=== PATIENT | male | born 1935 | race Caucasian/White ===

== ENCOUNTER 2018-02-16 15:39 | Emergency (ER) | payer MEDICARE ==
[~2018-02-16] VITALS: Ht 180.3 cm; Wt 77.0 kg
[~2018-02-16 15:39] MED LIST: COUM5TAB PO; GABA300 PO; HYDR-3580 PO; LEVO125T48 PO; LORA-392 PO; MOTI25CH PO; OMEG1CAP53 PO; OMEP20CA5 PO; PROS5TAB2 PO; TERA5CAP34 PO; TOPR100T15 PO; VASO10TA8 PO
[2018-02-16 16:04] VITALS: BP 171/79; PULSE 63; RESP 16; TEMP 98.3; O2SAT 96
[2018-02-16] MEDS ORDERED: SODIUM CHLORIDE 0.9% FLUSH 10 ML FLUSH IV FLUSH PRN (16:30)
--- NOTE | 2018-02-16 16:44 | PD ---
HPI . Spitting up blood Chief Complaint: Bleeding Time Seen by Provider: 16:18 Travel History International Travel<30 days: No Contact w/Intl Traveler<30days: No Traveled to known affect area: No History of Present Illness HPI This patient presents with chief complaint of spitting up blood. The patient reports that he has been spitting up blood for an unknown amount of time. However, it was worse today. He states that it is usually dark and scant but that it was copious and bright red today. He has no idea with what he might be coming from. He denies nosebleed. He denies hematemesis. He denies hemoptysis. He states that he will just wake up with the sensation that he has something in his throat. He will spit it out and it will be blood. He states that he can usually just rinse his mouth out and the bleeding stops. He states that the bleeding was bright red today and did not immediately stop when he rinsed his mouth. He became alarmed and presented to us for evaluation. The patient states that he has had a recent EGD and colonoscopy which were negative. He also states that he has been evaluated by ENT and that no etiology of the bleeding was found by ENT. Symptoms have been continuous for quite some time and acutely worse today. Symptoms are mild. The patient is unaware of any modifying factors. 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 PFSH Past Medical History Hx Anticoagulant Therapy: Yes Arthritis: Yes ( BILATERAL KNEE) Asthma: No Autoimmune Disease: No Blood Disorders: Yes (blood clots in lungs 2008) Anxiety: No Depression: No Heart Rhythm Problems: No Cancer: No Cardiovascular Problems: No High Cholesterol: No Chemotherapy: No Chest Pain: No Congestive Heart Failure: No COPD: No Cerebrovascular Accident: No Diabetes: No Diminished Hearing: Yes (HEARING DEFECIT) Diverticulitis: Yes Gastrointestinal Disorders: Yes GERD: Yes Glaucoma: No Genitourinary: Yes (ENLARGED PROSTATE) Headaches: No Hepatitis: No Hiatal Hernia: No Hypertension: Yes Immune Disorder: No Implanted Vascular Access Dvce: No Kidney Stones: No Musculoskeletal: Yes (CHRONIC BACK PAIN) Neurologic: No Psychiatric: No Reproductive: No Respiratory: Yes (PE) Immunizations Current: Yes Migraines: No Myocardial Infarction: No Radiation Therapy: No Seizures: No Sickle Cell Disease: No Thyroid Disease: Yes Ulcer: No ?: Not Past Surgical History Abdominal Surgery: No Appendectomy: No Arteriovenous Shunt: No Cardiac Surgery: No Cholecystectomy: No Ear Surgery: No Eye Surgery: Yes (RIGHT CATARACT) Genitourinary Surgery: No Gynecologic Surgery: No Insulin Pump: No Joint Replacement: No Neurologic Surgery: No Oral Surgery: No Pacemaker: No Thoracic Surgery: No Other Surgery: Yes (BIOPSY PROSTATE "YEARS AGO.") Social History Alcohol Use: No Tobacco Use: No Substance Use: No Allergies-Medications (Allergen,Severity, Reaction): Coded Allergies: No Known Allergies (Verified Adverse Reaction, Unknown, 02/16/18) Reported Meds & Prescriptions Reported Meds & Active Scripts Active Reported Hydrocodone-Acetaminophen 10-325 mg Tab 1 Tab PO Q4H PRN Neurontin (Gabapentin) 300 Mg Cap 900 Mg PO HS Warfarin 5 Mg Tab 5 Mg PO DAILY Metoprolol Tartrate 100 Mg Tab 100 Mg PO BID Levoxyl (Levothyroxine Sodium) 125 Mcg Tab 125 Mcg PO DAILY Terazosin (Terazosin HCl) 5 Mg Cap 5 Mg PO BID Omeprazole 20 Mg Tab 20 Mg PO BID Enalapril (Enalapril Maleate) 20 Mg Tab 20 Mg PO BID Review of Systems Except as stated in HPI: all other systems reviewed are Neg Physical Exam Narrative GENERAL: Awake and alert and in no acute distress. SKIN: warm/dry. Normal color and turgor. HEAD: Normocephalic. Atraumatic. EYES: Pupils equal and round. No scleral icterus. No injection or drainage. ENT: No nasal bleeding or discharge. Mucous membranes pink and moist. No evidence of bleeding from the nose or throat. NECK: Trachea midline. Full range of motion without pain.. CARDIOVASCULAR: Regular rate and rhythm. RESPIRATORY: No accessory muscle use. Clear to auscultation. Breath sounds equal bilaterally. GASTROINTESTINAL: Abdomen soft. Nontender. Bowel sounds present. Nondistended. MUSCULOSKELETAL: No obvious deformities. NEUROLOGICAL: Awake and alert. No obvious cranial nerve deficits. Motor grossly within normal limits. Normal speech. PSYCHIATRIC: Appropriate mood and affect; insight and judgment normal. Data Data Last Documented VS Vital Signs Date Time Temp Pulse Resp B/P (MAP) Pulse Ox O2 Delivery O2 Flow Rate FiO2 02/16/18 16:04 98.3 63 16 171/79 (109) 96 Orders Orders Basic Metabolic Panel (Bmp) (02/16/18 16:19) Complete Blood Count With Diff (02/16/18 16:19) Prothrombin Time / Inr (Pt) (02/16/18 16:19) Iv Access Insert/Monitor (02/16/18 16:19) Sodium Chloride 0.9% Flush (Ns Flush) (02/16/18 16:30) Chest, Single Ap (02/16/18 16:19) Labs Laboratory Tests Test 02/16/18 16:45 White Blood Count 5.5 TH/MM3 Red Blood Count 4.30 MIL/MM3 Hemoglobin 13.0 GM/DL Hematocrit 40.3 % Mean Corpuscular Volume 93.7 FL Mean Corpuscular Hemoglobin 30.2 PG Mean Corpuscular Hemoglobin Concent 32.2 % Red Cell Distribution Width 13.6 % Platelet Count 143 TH/MM3 Mean Platelet Volume 7.4 FL Neutrophils (%) (Auto) 61.1 % Lymphocytes (%) (Auto) 27.0 % Monocytes (%) (Auto) 7.8 % Eosinophils (%) (Auto) 2.3 % Basophils (%) (Auto) 1.8 % Neutrophils # (Auto) 3.4 TH/MM3 Lymphocytes # (Auto) 1.5 TH/MM3 Monocytes # (Auto) 0.4 TH/MM3 Eosinophils # (Auto) 0.1 TH/MM3 Basophils # (Auto) 0.1 TH/MM3 CBC Comment DIFF FINAL Differential Comment Prothrombin Time 29.6 SEC Prothromb Time International Ratio 2.9 RATIO Blood Urea Nitrogen 18 MG/DL Creatinine 0.72 MG/DL Random Glucose 93 MG/DL Calcium Level 8.9 MG/DL Sodium Level 140 MEQ/L Potassium Level 3.9 MEQ/L Chloride Level 107 MEQ/L Carbon Dioxide Level 26.3 MEQ/L Anion Gap 7 MEQ/L Estimat Glomerular Filtration Rate 104 ML/MIN [facility] Medical Decision Making Medical Screen Exam Complete: Yes Emergency Medical Condition: Yes Differential Diagnosis Differential diagnosis of ENT bleeding includes but is not limited to anterior epistaxis, posterior epistaxis, oropharyngeal bleeding, hemoptysis, hematemesis Narrative Course This patient presents stating that he has been spitting up blood for a long time. He states that it is acutely worse today. 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 CBC & BMP Diagram 02/16/18 16:45 Calcium Level 8.9 INR 2.9 Vital Signs Date Time Temp Pulse Resp B/P (MAP) Pulse Ox O2 Delivery O2 Flow Rate FiO2 02/16/18 16:04 98.3 63 16 171/79 (109) 96 This patient is hemodynamically stable with no anemia and no significant coagulopathy (his INR is therapeutic). He is stable for discharge to home. Diagnosis Primary Impression: Bleeding Additional Instructions: Follow-up with your primary care physician as needed Disposition: 01 DISCHARGE HOME Condition: Stable Marina Urrutia MD Feb 16, 2018 16:44
[2018-02-16] MEDS ORDERED: ENAL20TA PO (16:47)
[2018-02-16] MEDS ORDERED: OMEP20TA93 PO (16:47)
[2018-02-16] MEDS ORDERED: LEVO125T50 PO (16:47)
[2018-02-16] MEDS ORDERED: WARF-23 PO (16:47)
[2018-02-16] MEDS ORDERED: TERA5CAP3 PO (16:47)
[2018-02-16] MEDS ORDERED: NEUR300C PO (16:47)
[2018-02-16] MEDS ORDERED: HYDR-3583 PO (16:47)
[2018-02-16] MEDS ORDERED: METO100T PO (16:47)
[2018-02-16 17:04] LABS: AUTOMATED NEUTROPHIL # 3.4 TH/MM3 (1.8-7.7); BASOPHIL # 0.1 TH/MM3 (0-0.2); BASOPHIL % 1.8 % (0.0-2.0); EOSINOPHIL # 0.1 TH/MM3 (0-0.4); EOSINOPHIL % 2.3 % (0.0-4.0); HEMATOCRIT 40.3 % (39.0-51.0); LYMPHOCYTE # 1.5 TH/MM3 (1.0-4.8); MEAN CELL VOLUME 93.7 FL (80.0-100.0); MEAN CORPUSCULAR HEMOGLOBIN 30.2 PG (27.0-34.0); MEAN CORPUSCULAR HGB CONC 32.2 % (32.0-36.0); MEAN PLATELET VOLUME 7.4 FL (7.0-11.0); MONO % 7.8 % (0.0-8.0); MONOCYTE # 0.4 TH/MM3 (0-0.9); NEUT % 61.1 % (16.0-70.0); PLATELET COUNT 143 TH/MM3 (150-450); RED CELL DISTRIBUTION WIDTH 13.6 % (11.6-17.2); WHITE BLOOD COUNT 5.5 TH/MM3 (4.0-11.0)
[2018-02-16 17:14] LABS: CALCIUM 8.9 MG/DL (8.5-10.1)
[2018-02-16 17:15] LABS: BICARBONATE 26.3 MEQ/L (21.0-32.0)
--- NOTE | 2018-02-16 17:15 | RADRPT ---
EXAM DATE/TIME: 02/16/2018 16:31 [place] COMPARISON: CHEST SINGLE AP, October 17, 2012, 13:14. INDICATIONS : Vomiting blood since this morning. MEDICAL HISTORY : None. SURGICAL HISTORY : None. ENCOUNTER: Initial ACUITY: 1 day PAIN SCORE: 0/10 LOCATION: Bilateral chest FINDINGS: A single view of the chest demonstrates the lungs to be symmetrically aerated without evidence of mas s, infiltrate or effusion. The cardiomediastinal contours are unremarkable. Osseous structures are intact. CONCLUSION: The lungs are clear. Truman Lopez MD on February 16, 2018 at 17:12 Board Certified Radiologist. This report was verified electronically.
[2018-02-16 17:18] LABS: CREATININE 0.72 MG/DL (0.60-1.30)
[2018-02-16 17:20] LABS: INTERNATIONAL NORMALIZED RATIO 2.9 RATIO; PROTHROMBIN TIME - PATIENT 29.6 SEC (9.8-11.6)
== END 2018-02-16 18:34 | disposition home or self-care (01) ==
LOC: PHED 15:39
DX: R04.2 Hemoptysis (principal); N40.0 Benign prostatic hyperplasia without lower urinary tract symptoms; H91.90 Unspecified hearing loss, unspecified ear; I10 Essential (primary) hypertension; Z86.711 Personal history of pulmonary embolism; Z79.01 Long term (current) use of anticoagulants
CPT/HCPCS: 71045; 80048; 85025; 85610; 99284

== ENCOUNTER 2018-07-22 20:11 | Inpatient (IN) ==
[2018-07-22] MEDS ORDERED: Sod Chloride 0.9% Inj 1,000 ML IV.SIG ONE (20:47)
[2018-07-22] MEDS ORDERED: Piperacil/Tazo 4.5 GM Premix 4.5 GM/100 ML BAG IV.SIG ONE (20:49)
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
[2018-07-22 21:02] LABS: Bilirubin,Urine Negative (Negative); Clarity,Urine Clear (Clear); Color,Urine Yellow (Yellw/Straw); Glucose,Urine (UA) Negative (Negative); Leukocyte Esterase,Urine Moderate (Negative); Nitrite,Urine Positive (Negative); PH,Urine 5.5 (5.0-8.5); Specific Gravity,Urine 1.015 (1.002-1.035); Urobilinogen,Urine 0.2 mg/dL (Less than 2)
[2018-07-22 21:20] LABS: Bacteria,Urine Many /hpf; Squamous Epithelial Cell,Urine 0-5 /hpf (0-5); WBC,Urine Innumerable /hpf (0-5)
[2018-07-22 21:56] LABS: Baso % (Auto) 0.3 % (0.0-2.0); Eos # (Auto) 0.1 th/mm3 (0.0-0.4); Hematocrit 38.3 % (39.0-51.0); Lymph # (Auto) 0.8 th/mm3 (1.0-4.8); Lymph % (Auto) 11.2 % (9.0-44.0); Mean Corpuscular Hemoglobin 32.6 pg (27.0-34.0); Mean Corpuscular Volume 96.1 fL (80.0-100.0); Mean Platelet Volume 7.5 fL (7.0-11.0); Mono # (Auto) 0.7 th/mm3 (0.0-0.9); Mono % (Auto) 9.3 % (0.0-8.0); Neut # (Auto) 5.9 th/mm3 (1.8-7.7); Neut % (Auto) 78.2 % (16.0-70.0); Platelet Count 151 th/mm3 (150-450); Red Blood Count 3.98 mil/mm3 (4.50-5.90); Red Cell Distribution Width 13.2 % (11.6-17.2); White Blood Count 7.5 th/mm3 (4.0-11.0)
[2018-07-22 22:04] LABS: Chloride 101 meq/L (98-107); Potassium 4.1 meq/L (3.5-5.1); Sodium 136 meq/L (136-145)
[2018-07-22 22:06] LABS: INR 2.9 Ratio; Prothrombin Time 29.2 sec (9.8-11.6)
[2018-07-22 22:08] LABS: Albumin 3.1 g/dL (3.4-5.0); Anion Gap 10 meq/L (5-15); Blood Urea Nitrogen 31 mg/dL (7-18); Calcium 8.4 mg/dL (8.5-10.1); Carbon Dioxide 24.8 meq/L (21.0-32.0); Glucose,Random 93 mg/dL (74-106); Lipase 106 U/L (73-393)
[2018-07-22 22:11] LABS: Alanine Aminotransferase 28 U/L (12-78); Aspartate Aminotransferase 27 U/L (15-37); Glomerular Filtration Rate 71 mL/min (>89)
[2018-07-22 22:13] LABS: Total Protein 6.8 g/dL (6.4-8.2)
[2018-07-22 22:14] LABS: Alkaline Phosphatase 74 U/L (45-117)
[2018-07-23] MEDS: Sodium Chloride 0.45 % Inj 1,000 ML IV.CONT SCH ×2 (01:53→14:20)
[2018-07-23] MEDS: Piperacil/Tazo 3.375 GM Premix 50 ML IV.SIG SCH ×4 (05:01→21:49)
[2018-07-23 07:06] LABS: Baso % (Auto) 0.5 % (0.0-2.0); Eos % (Auto) 0.1 % (0.0-4.0); Hematocrit 35.1 % (39.0-51.0); Hemoglobin 11.8 gm/dL (13.0-17.0); Lymph # (Auto) 1.1 th/mm3 (1.0-4.8); Lymph % (Auto) 14.5 % (9.0-44.0); Mean Corpuscular HGB Conc 33.6 % (32.0-36.0); Mean Corpuscular Hemoglobin 32.2 pg (27.0-34.0); Mean Corpuscular Volume 95.9 fL (80.0-100.0); Mean Platelet Volume 7.4 fL (7.0-11.0); Mono # (Auto) 0.8 th/mm3 (0.0-0.9); Mono % (Auto) 9.9 % (0.0-8.0); Platelet Count 159 th/mm3 (150-450); Red Blood Count 3.67 mil/mm3 (4.50-5.90); Red Cell Distribution Width 13.1 % (11.6-17.2); White Blood Count 7.9 th/mm3 (4.0-11.0)
[2018-07-23] MEDS: Levothyroxine 125 MCG Tablet PO SCH (07:19)
[2018-07-23 07:30] LABS: Potassium 3.9 meq/L (3.5-5.1)
[2018-07-23 07:32] LABS: INR 3.1 Ratio; Prothrombin Time 31.6 sec (9.8-11.6)
[2018-07-23 07:34] LABS: Calcium 8.4 mg/dL (8.5-10.1)
[2018-07-23 07:35] LABS: Carbon Dioxide 20.7 meq/L (21.0-32.0)
[2018-07-23] MEDS: Metoprolol Tartrate 50 MG Tablet PO SCH ×2 (08:09→21:39)
[2018-07-23] MEDS: Senna/Docusate Sodium 8.6/50 MG Tablet PO SCH ×2 (08:09→21:36)
[2018-07-23] MEDS: Pantoprazole Sodium 20 MG DR Tablet PO SCH ×2 (08:09→21:38)
[2018-07-23] MEDS: Acetaminophen 325 MG Tablet PO PRN ×3 (10:52→21:41)
--- NOTE | 2018-07-23 12:21 | ECG ---
Date Performed: 07/22/2018 Time Performed: 20:59:59 PTAGE: 82 years EKG: Sinus rhythm RIGHT BUNDLE BRANCH BLOCK ABNORMAL ECG Compared to PREVIOUS TRACING Right bundle branch block is now present PREVIOUS TRACIN08/03/2015 1 1.43 DOCTOR: Tyrone Dickey Interpretating Date/Time 07/25/2018 07:28:33
[2018-07-23] MEDS: Gabapentin 400 MG Capsule PO SCH (21:38)
[2018-07-24] MEDS: Piperacil/Tazo 3.375 GM Premix 50 ML IV.SIG SCH ×4 (04:23→21:28)
[2018-07-24] MEDS: Sodium Chloride 0.45 % Inj 1,000 ML IV.CONT SCH ×2 (04:23→17:38)
[2018-07-24] MEDS: Acetaminophen 325 MG Tablet PO PRN ×2 (04:24→10:46)
[2018-07-24 06:10] LABS: Baso % (Auto) 0.4 % (0.0-2.0); Eos # (Auto) 0.1 th/mm3 (0.0-0.4); Eos % (Auto) 1.7 % (0.0-4.0); Hematocrit 36.1 % (39.0-51.0); Hemoglobin 12.2 gm/dL (13.0-17.0); Lymph # (Auto) 1.4 th/mm3 (1.0-4.8); Lymph % (Auto) 18.6 % (9.0-44.0); Mean Corpuscular HGB Conc 33.9 % (32.0-36.0); Mean Corpuscular Hemoglobin 32.3 pg (27.0-34.0); Mean Corpuscular Volume 95.4 fL (80.0-100.0); Mean Platelet Volume 7.6 fL (7.0-11.0); Mono # (Auto) 0.6 th/mm3 (0.0-0.9); Mono % (Auto) 8.5 % (0.0-8.0); Neut # (Auto) 5.3 th/mm3 (1.8-7.7); Neut % (Auto) 70.8 % (16.0-70.0); Platelet Count 164 th/mm3 (150-450); Red Blood Count 3.78 mil/mm3 (4.50-5.90); Red Cell Distribution Width 13.5 % (11.6-17.2); White Blood Count 7.4 th/mm3 (4.0-11.0)
[2018-07-24 06:17] LABS: Chloride 108 meq/L (98-107); Potassium 3.6 meq/L (3.5-5.1); Sodium 141 meq/L (136-145)
[2018-07-24 06:25] LABS: Calcium 8.5 mg/dL (8.5-10.1)
[2018-07-24 06:26] LABS: Albumin 2.7 g/dL (3.4-5.0); Anion Gap 11 meq/L (5-15); Aspartate Aminotransferase 44 U/L (15-37); Blood Urea Nitrogen 16 mg/dL (7-18); Carbon Dioxide 22.5 meq/L (21.0-32.0); Glucose,Random 89 mg/dL (74-106)
[2018-07-24 06:27] LABS: Alanine Aminotransferase 32 U/L (12-78)
[2018-07-24 06:28] LABS: Total Protein 6.3 g/dL (6.4-8.2)
[2018-07-24 06:29] LABS: Alkaline Phosphatase 82 U/L (45-117); Glomerular Filtration Rate Greater Than 89 mL/min (>89)
[2018-07-24] MEDS: Levothyroxine 125 MCG Tablet PO SCH (06:30)
[2018-07-24] MEDS: Metoprolol Tartrate 50 MG Tablet PO SCH (10:45)
[2018-07-24] MEDS: Pantoprazole Sodium 20 MG DR Tablet PO SCH (10:45)
[2018-07-24] MEDS: Senna/Docusate Sodium 8.6/50 MG Tablet PO SCH ×2 (10:45→21:28)
[2018-07-24] MEDS ORDERED: Phytonadione 5 MG/SWFI 5 ML Oral Syringe PO ONE (12:00)
[2018-07-24] MEDS ORDERED: Morphine Inj 4 MG/ML Vial IV.PUSH ONE (12:00)
[2018-07-24 12:32] LABS: INR 5.5 Ratio; Prothrombin Time 55.6 sec (9.8-11.6)
[2018-07-24 15:35] LABS: Hematocrit 32.8 % (39.0-51.0); Hemoglobin 10.7 gm/dL (13.0-17.0)
[2018-07-24] MEDS ORDERED: HYDROmorphone PF Inj 1 MG/ML Ampul IV.PUSH PRN ×2 (16:00→17:30)
[2018-07-24] MEDS ORDERED: Belladonna Alkaloid/Opium 60 MG Supp RECTAL ONE (18:30)
[2018-07-24 19:29] LABS: Prothrombin Time 40.1 sec (9.8-11.6)
[2018-07-24] MEDS ORDERED: Potassium Chlor 40 mEq Premix 40 MEQ/100 ML PIGGYBACK IV.SIG PRN ×2 (20:26)
[2018-07-24] MEDS ORDERED: Magnesium Sulfate Inj 2 GM in Sodium Chlor 0.9% Inj 96 ML IV.SIG PRN (20:26)
[2018-07-24] MEDS ORDERED: Magnesium Oxide 400 MG Tablet PO PRN (20:26)
[2018-07-24] MEDS ORDERED: Potassium Phosphate 500 MG Soluble Tablet PO PRN ×2 (20:26)
[2018-07-24] MEDS ORDERED: Potassium Phosphate Inj 30 MMOL in Sodium Chlor 0.9% Inj 250 ML IV.SIG PRN (20:26)
[2018-07-24] MEDS ORDERED: Dextrose 50% in Water 50 ML Vial IV.PUSH PRN (20:26)
[2018-07-24] MEDS ORDERED: Potassium Chlor 20 mEq Premix 20 MEQ/100 ML PIGGYBACK IV.SIG PRN ×2 (20:26)
[2018-07-24] MEDS ORDERED: Sodium Phosphate Inj 30 MMOL in Sodium Chlor 0.9% Inj 250 ML IV.SIG PRN (20:26)
[2018-07-24] MEDS ORDERED: Potassium Chloride 25 MEQ Effervescent Tablet PO PRN (20:26)
[2018-07-24] MEDS ORDERED: Magnesium Sulfate Inj 4 GM in Sodium Chlor 0.9% Inj 92 ML IV.SIG PRN (20:26)
[2018-07-24] MEDS ORDERED: HYDROmorphone PF Inj 2 MG/ML Vial IV.PUSH PRN ×2 (21:25→22:48)
[2018-07-24] MEDS: Gabapentin 400 MG Capsule PO SCH (21:28)
[2018-07-24] MEDS: Sod Chloride 0.9% Inj 1,000 ML IV.CONT SCH (21:56)
[2018-07-24] MEDS ORDERED: HYDROmorphone PF Inj 2 MG/ML Vial SQ ONE (22:48)
[2018-07-24] MEDS ORDERED: Acetaminophen Inj 650 MG/65 ML VIAL IV.SIG PRN (22:48)
[2018-07-24] MEDS: HYDROmorphone PF Inj 2 MG/ML Vial IV.PUSH PRN (23:00)
[2018-07-25] MEDS: Insulin NovoLOG Aspart Correctional Sugar Inj SQ SCH ×4 (01:03→17:33)
[2018-07-25] MEDS ORDERED: Chlorhexidine Gluconate 2% 1 Pack (2 Cloths) TOPICAL PRN (04:00)
[2018-07-25] MEDS: Piperacil/Tazo 3.375 GM Premix 50 ML IV.SIG SCH ×4 (04:02→21:40)
[2018-07-25] MEDS: Chlorhexidine Gluconate 2% 1 Pack (2 Cloths) TOPICAL SCH (04:02)
[2018-07-25] MEDS: Levothyroxine 125 MCG Tablet PO SCH (06:40)
[2018-07-25] MEDS: Pantoprazole Inj 40 MG Vial IV.PUSH SCH (09:10)
[2018-07-25] MEDS: Senna/Docusate Sodium 8.6/50 MG Tablet PO SCH ×2 (09:10→20:38)
[2018-07-25 12:28] LABS: Baso % (Auto) 0.1 % (0.0-2.0); Eos % (Auto) 0.2 % (0.0-4.0); Hemoglobin 9.6 gm/dL (13.0-17.0); Lymph % (Auto) 9.6 % (9.0-44.0); Mean Corpuscular HGB Conc 34.3 % (32.0-36.0); Mean Corpuscular Hemoglobin 32.3 pg (27.0-34.0); Mean Corpuscular Volume 94.2 fL (80.0-100.0); Mean Platelet Volume 7.6 fL (7.0-11.0); Mono % (Auto) 8.9 % (0.0-8.0); Neut # (Auto) 8.7 th/mm3 (1.8-7.7); Neut % (Auto) 81.2 % (16.0-70.0); Platelet Count 176 th/mm3 (150-450); Red Blood Count 2.97 mil/mm3 (4.50-5.90); Red Cell Distribution Width 15.2 % (11.6-17.2); White Blood Count 10.8 th/mm3 (4.0-11.0)
[2018-07-25 12:45] LABS: Activated Partial Thrombo Time 36.7 sec (24.3-30.1); INR 1.5 Ratio; Prothrombin Time 15.4 sec (9.8-11.6)
[2018-07-25 12:58] LABS: Albumin 2.6 g/dL (3.4-5.0); Carbon Dioxide 23.6 meq/L (21.0-32.0); Magnesium 2.3 mg/dL (1.5-2.5); Potassium 3.8 meq/L (3.5-5.1)
[2018-07-25 13:08] LABS: Phosphorus 3.5 mg/dL (2.5-4.9); Thyroid Stimulating Hormone 1.98 uIU/mL (0.358-3.740); Total Protein 6.3 g/dL (6.4-8.2); Troponin I 0.02 ng/mL (0.02-0.05)
[2018-07-25 13:23] LABS: Creatine Kinase MB 6.9 ng/mL (0.5-3.6)
[2018-07-25] MEDS: Sod Chloride 0.9% Inj 1,000 ML IV.CONT SCH ×2 (16:45→16:46)
[2018-07-25] MEDS ORDERED: Phytonadione Inj 10 MG in Sodium Chlor 0.9% Inj 50 ML IV.SIG ONE (18:00)
[2018-07-25] MEDS: Gabapentin 400 MG Capsule PO SCH (20:37)
[2018-07-26] MEDS: Insulin NovoLOG Aspart Correctional Sugar Inj SQ SCH ×4 (01:02→17:54)
[2018-07-26 03:27] LABS: Baso % (Auto) 0.3 % (0.0-2.0); Eos # (Auto) 0.4 th/mm3 (0.0-0.4); Eos % (Auto) 4.5 % (0.0-4.0); Hematocrit 24.9 % (39.0-51.0); Hemoglobin 8.6 gm/dL (13.0-17.0); Lymph # (Auto) 1.2 th/mm3 (1.0-4.8); Lymph % (Auto) 14.7 % (9.0-44.0); Mean Corpuscular HGB Conc 34.8 % (32.0-36.0); Mean Corpuscular Hemoglobin 32.3 pg (27.0-34.0); Mean Corpuscular Volume 92.7 fL (80.0-100.0); Mean Platelet Volume 7.5 fL (7.0-11.0); Mono # (Auto) 0.8 th/mm3 (0.0-0.9); Mono % (Auto) 9.5 % (0.0-8.0); Platelet Count 183 th/mm3 (150-450); Red Blood Count 2.68 mil/mm3 (4.50-5.90); Red Cell Distribution Width 15.4 % (11.6-17.2); White Blood Count 8.4 th/mm3 (4.0-11.0)
[2018-07-26 03:50] LABS: Alanine Aminotransferase 29 U/L (12-78); Albumin 2.2 g/dL (3.4-5.0); Anion Gap 10 meq/L (5-15); Aspartate Aminotransferase 40 U/L (15-37); Blood Urea Nitrogen 28 mg/dL (7-18); Calcium 7.7 mg/dL (8.5-10.1); Carbon Dioxide 24.3 meq/L (21.0-32.0); Chloride 113 meq/L (98-107); Glomerular Filtration Rate Greater Than 89 mL/min (>89); Glucose,Random 88 mg/dL (74-106); Potassium 3.2 meq/L (3.5-5.1); Sodium 147 meq/L (136-145)
[2018-07-26 03:53] LABS: Alkaline Phosphatase 57 U/L (45-117); Total Protein 5.4 g/dL (6.4-8.2)
[2018-07-26] MEDS: Sod Chloride 0.9% Inj 1,000 ML IV.CONT SCH (04:01)
[2018-07-26] MEDS: Chlorhexidine Gluconate 2% 1 Pack (2 Cloths) TOPICAL SCH (04:01)
[2018-07-26 04:24] LABS: Platelet Estimate Normal (Normal); Platelet Morphology Normal (Normal)
[2018-07-26 04:25] LABS: Ovalocytes 1+
[2018-07-26] MEDS: Piperacil/Tazo 3.375 GM Premix 50 ML IV.SIG SCH ×4 (06:45→23:23)
[2018-07-26] MEDS: Levothyroxine 125 MCG Tablet PO SCH (06:46)
[2018-07-26] MEDS: Pantoprazole Inj 40 MG Vial IV.PUSH SCH (08:12)
[2018-07-26] MEDS: Senna/Docusate Sodium 8.6/50 MG Tablet PO SCH ×2 (08:12→23:18)
[2018-07-26 10:53] LABS: Baso % (Auto) 0.2 % (0.0-2.0); Eos # (Auto) 0.4 th/mm3 (0.0-0.4); Hematocrit 24.5 % (39.0-51.0); Hemoglobin 8.3 gm/dL (13.0-17.0); Lymph # (Auto) 1.2 th/mm3 (1.0-4.8); Lymph % (Auto) 13.8 % (9.0-44.0); Mean Corpuscular Hemoglobin 32.3 pg (27.0-34.0); Mean Corpuscular Volume 94.9 fL (80.0-100.0); Mean Platelet Volume 7.3 fL (7.0-11.0); Mono # (Auto) 0.7 th/mm3 (0.0-0.9); Mono % (Auto) 8.1 % (0.0-8.0); Neut # (Auto) 6.5 th/mm3 (1.8-7.7); Neut % (Auto) 73.9 % (16.0-70.0); Platelet Count 201 th/mm3 (150-450); Red Blood Count 2.58 mil/mm3 (4.50-5.90); Red Cell Distribution Width 15.5 % (11.6-17.2); White Blood Count 8.7 th/mm3 (4.0-11.0)
[2018-07-26 11:52] LABS: Eosinophils 3 % (0-4); Lymphocytes 13 % (9-44); Metamyelocytes 2 % (0-1); Monocytes 2 % (0-8); Platelet Estimate Normal (Normal); Platelet Morphology Normal (Normal); Toxic Granulation 2+
[2018-07-26] MEDS: Gabapentin 400 MG Capsule PO SCH (23:23)
[2018-07-27] MEDS: HYDROmorphone PF Inj 2 MG/ML Vial IV.PUSH PRN ×3 (00:59→16:35)
[2018-07-27] MEDS: Insulin NovoLOG Aspart Correctional Sugar Inj SQ SCH ×5 (01:01→23:39)
[2018-07-27] MEDS: Sod Chloride 0.9% Inj 1,000 ML IV.CONT SCH (01:32)
[2018-07-27 04:12] LABS: Baso % (Auto) 0.3 % (0.0-2.0); Eos # (Auto) 0.4 th/mm3 (0.0-0.4); Eos % (Auto) 4.1 % (0.0-4.0); Hematocrit 23.5 % (39.0-51.0); Hemoglobin 8.4 gm/dL (13.0-17.0); Lymph # (Auto) 1.3 th/mm3 (1.0-4.8); Lymph % (Auto) 13.4 % (9.0-44.0); Mean Corpuscular HGB Conc 35.6 % (32.0-36.0); Mean Corpuscular Hemoglobin 32.6 pg (27.0-34.0); Mean Corpuscular Volume 91.6 fL (80.0-100.0); Mean Platelet Volume 7.4 fL (7.0-11.0); Mono # (Auto) 0.7 th/mm3 (0.0-0.9); Mono % (Auto) 7.1 % (0.0-8.0); Neut # (Auto) 7.1 th/mm3 (1.8-7.7); Neut % (Auto) 75.1 % (16.0-70.0); Platelet Count 231 th/mm3 (150-450); Red Blood Count 2.57 mil/mm3 (4.50-5.90); Red Cell Distribution Width 15.1 % (11.6-17.2); White Blood Count 9.5 th/mm3 (4.0-11.0)
[2018-07-27 04:30] LABS: INR 1.1 Ratio; Prothrombin Time 11.4 sec (9.8-11.6)
[2018-07-27] MEDS: Chlorhexidine Gluconate 2% 1 Pack (2 Cloths) TOPICAL SCH (04:31)
[2018-07-27] MEDS: Piperacil/Tazo 3.375 GM Premix 50 ML IV.SIG SCH ×4 (04:31→21:55)
[2018-07-27 04:47] LABS: Alanine Aminotransferase 55 U/L (12-78); Albumin 2.4 g/dL (3.4-5.0); Alkaline Phosphatase 62 U/L (45-117); Anion Gap 12 meq/L (5-15); Aspartate Aminotransferase 80 U/L (15-37); Blood Urea Nitrogen 21 mg/dL (7-18); Calcium 7.9 mg/dL (8.5-10.1); Carbon Dioxide 21.6 meq/L (21.0-32.0); Chloride 112 meq/L (98-107); Glomerular Filtration Rate Greater Than 89 mL/min (>89); Glucose,Random 92 mg/dL (74-106); Potassium 3.4 meq/L (3.5-5.1); Sodium 146 meq/L (136-145); Total Protein 5.9 g/dL (6.4-8.2)
[2018-07-27] MEDS: Levothyroxine 125 MCG Tablet PO SCH (06:07)
[2018-07-27] MEDS: Pantoprazole Inj 40 MG Vial IV.PUSH SCH (08:20)
[2018-07-27] MEDS: Senna/Docusate Sodium 8.6/50 MG Tablet PO SCH ×2 (08:20→21:17)
[2018-07-27] MEDS: Gabapentin 400 MG Capsule PO SCH (21:17)
[2018-07-28] MEDS: Piperacil/Tazo 3.375 GM Premix 50 ML IV.SIG SCH ×2 (05:58→09:46)
[2018-07-28] MEDS: Levothyroxine 125 MCG Tablet PO SCH (05:59)
[2018-07-28] MEDS: Chlorhexidine Gluconate 2% 1 Pack (2 Cloths) TOPICAL SCH (06:04)
[2018-07-28] MEDS: Insulin NovoLOG Aspart Correctional Sugar Inj SQ SCH ×3 (06:06→19:15)
[2018-07-28 07:07] LABS: INR 1.1 Ratio; Prothrombin Time 11.2 sec (9.8-11.6)
[2018-07-28 07:20] LABS: Baso % (Auto) 0.3 % (0.0-2.0); Eos # (Auto) 0.5 th/mm3 (0.0-0.4); Eos % (Auto) 4.8 % (0.0-4.0); Hematocrit 22.8 % (39.0-51.0); Hemoglobin 8.1 gm/dL (13.0-17.0); Lymph # (Auto) 1.2 th/mm3 (1.0-4.8); Lymph % (Auto) 12.3 % (9.0-44.0); Mean Corpuscular HGB Conc 35.3 % (32.0-36.0); Mean Corpuscular Hemoglobin 32.7 pg (27.0-34.0); Mean Corpuscular Volume 92.7 fL (80.0-100.0); Mean Platelet Volume 7.3 fL (7.0-11.0); Mono # (Auto) 0.5 th/mm3 (0.0-0.9); Mono % (Auto) 5.2 % (0.0-8.0); Neut # (Auto) 7.4 th/mm3 (1.8-7.7); Neut % (Auto) 77.4 % (16.0-70.0); Platelet Count 250 th/mm3 (150-450); Red Blood Count 2.46 mil/mm3 (4.50-5.90); Red Cell Distribution Width 15.2 % (11.6-17.2); White Blood Count 9.5 th/mm3 (4.0-11.0)
[2018-07-28 07:35] LABS: Albumin 2.2 g/dL (3.4-5.0); Anion Gap 10 meq/L (5-15); Aspartate Aminotransferase 52 U/L (15-37); Carbon Dioxide 24.1 meq/L (21.0-32.0); Chloride 111 meq/L (98-107); Glomerular Filtration Rate Greater Than 89 mL/min (>89); Glucose,Random 95 mg/dL (74-106); Potassium 3.7 meq/L (3.5-5.1); Sodium 145 meq/L (136-145)
[2018-07-28 07:47] LABS: Alanine Aminotransferase 48 U/L (12-78); Alkaline Phosphatase 56 U/L (45-117); Blood Urea Nitrogen 19 mg/dL (7-18); Total Protein 5.7 g/dL (6.4-8.2)
[2018-07-28] MEDS: Pantoprazole Inj 40 MG Vial IV.PUSH SCH (08:50)
[2018-07-28] MEDS: Senna/Docusate Sodium 8.6/50 MG Tablet PO SCH ×2 (08:50→22:48)
[2018-07-28] MEDS ORDERED: Sodium Chlor 0.9% Inj 250 ML IV.SIG SCH (15:00)
[2018-07-28] MEDS: Gabapentin 400 MG Capsule PO SCH (22:45)
[2018-07-28] MEDS: Metoprolol Tartrate 50 MG Tablet PO SCH (22:47)
[2018-07-29] MEDS: Insulin NovoLOG Aspart Correctional Sugar Inj SQ SCH ×4 (00:49→17:04)
[2018-07-29] MEDS: Chlorhexidine Gluconate 2% 1 Pack (2 Cloths) TOPICAL SCH (04:21)
[2018-07-29 05:46] LABS: Baso % (Auto) 0.1 % (0.0-2.0); Eos # (Auto) 0.3 th/mm3 (0.0-0.4); Eos % (Auto) 3.2 % (0.0-4.0); Hematocrit 23.9 % (39.0-51.0); Hemoglobin 8.4 gm/dL (13.0-17.0); Lymph # (Auto) 1.4 th/mm3 (1.0-4.8); Lymph % (Auto) 14.8 % (9.0-44.0); Mean Corpuscular Hemoglobin 32.4 pg (27.0-34.0); Mean Corpuscular Volume 92.5 fL (80.0-100.0); Mean Platelet Volume 7.2 fL (7.0-11.0); Mono # (Auto) 0.6 th/mm3 (0.0-0.9); Mono % (Auto) 6.7 % (0.0-8.0); Neut # (Auto) 7.2 th/mm3 (1.8-7.7); Neut % (Auto) 75.2 % (16.0-70.0); Platelet Count 248 th/mm3 (150-450); Red Blood Count 2.59 mil/mm3 (4.50-5.90); Red Cell Distribution Width 15.1 % (11.6-17.2); White Blood Count 9.6 th/mm3 (4.0-11.0)
[2018-07-29] MEDS: Levothyroxine 125 MCG Tablet PO SCH (06:12)
[2018-07-29] MEDS: Senna/Docusate Sodium 8.6/50 MG Tablet PO SCH (08:33)
[2018-07-29] MEDS: Pantoprazole Inj 40 MG Vial IV.PUSH SCH (08:33)
[2018-07-29] MEDS: Metoprolol Tartrate 50 MG Tablet PO SCH (08:33)
[2018-07-29 12:36] LABS: Hematocrit 26.2 % (39.0-51.0)
[2018-07-29] MEDS ORDERED: Sodium Chlor 0.9% Inj 500 ML IV.SIG SCH (15:00)
== END 2018-07-29 19:09 ==
LOC: PHED 20:11 → PHEDA 23:37 → PH3 07-23 00:32 → HIMC 07-24 19:55 → N07 07-27 16:04
PROVIDERS: ADMIT Hospitalist; ATTEND Hospitalist

== ENCOUNTER 2018-08-11 16:03 | Inpatient (IN) ==
[2018-08-11] MEDS ORDERED: Acetaminophen 325 MG Tablet PO ONE (16:31)
--- NOTE | 2018-08-11 16:41 | ED ---
HPI General Chief Complaint: Abdominal Pain Stated Complaint: abd pain Time Seen by Provider: 08/11/18 16:19 Source: patient Mode of arrival: EMS Limitations: no limitations History of Present Illness HPI narrative: The patient is a 82-year-old male who presents to the emergency department from the senior living via EMS for fever. The patient was recently hospitalized for urinary tract infection and sepsis, was discharged to the senior living with a Castelan catheter in place. The patient notes increasing lower abdominal distention and burning when he urinates via catheter for the last several days. He also notes subjective fevers at the senior living. He does complain of lower abdominal pain that is located over the suprapubic region and radiates to the back. The patient cannot recall the reason he had a Castelan catheter placed several months ago. He denies any current cough, chest pain, or shortness of breath. Symptoms are moderate. MD complaint: Reports abdominal pain Onset (ago): day(s) Pain Consistency: constant Location: Reports suprapubic Severity: moderate Quality: Reports aching and dull Radiation: Reports back Migration to: Reports other Relieving factors: nothing Exacerbating factors: nothing Context: Reports recent antibiotic use and history of similar episodes Associated symptoms: Reports dysuria Related Data Home Medications Medication Instructions Recorded Confirmed gabapentin 1,200 mg PO HS 07/22/18 08/11/18 levothyroxine 125 mcg PO DAILY 07/22/18 08/11/18 metoprolol tartrate 100 mg PO BID 07/22/18 08/11/18 omeprazole 20 mg PO BID 07/22/18 08/11/18 terazosin 5 mg PO BID 07/22/18 08/11/18 vitamins A,C,[id number] 2 tab PO BID 07/22/18 08/11/18 [[facility]erVision AREDS] Previous Rx's Medication Instructions Recorded tramadol [Ultram] 50 mg PO Q6H PRN #30 tab 07/29/18 Allergies Allergy/AdvReac Type Severity Reaction Status Date / Time No Known Allergies Allergy Verified 08/11/18 16:10 Review of Systems ROS: all other systems reviewed are negative [facility] Family History Family History Other Family history non-contributory Social History Social History Substance History: No History of Abuse Second Hand Smoke Exposure: No Smoking Status: Former smoker Tobacco Type: Cigarettes How Often Do You Have a Drink Containing Alcohol: Never Recent Travel in [facility] within the Last 8 Weeks: No Recent Out of Country Travel within the Last 8 Weeks: No Immunization History Tetanus Immunization: <5 Years Hx Influenza Vaccine This Season: No Exam Narrative Exam Narrative: GENERAL: Awake, alert, pleasant 82-year-old male who appears his stated age and is in no acute respiratory distress. SKIN: Focused skin assessment warm/dry. HEAD: Atraumatic. Normocephalic. EYES: Pupils equal and round. No scleral icterus. No injection or drainage. ENT: No nasal bleeding or discharge. Upper dentures in place. No lower teeth noted. NECK: Trachea midline. No JVD. CARDIOVASCULAR: Regular rate and rhythm. No murmur appreciated. Heart rate in the 90s. RESPIRATORY: No accessory muscle use. Clear to auscultation. Breath sounds equal bilaterally. GASTROINTESTINAL: Abdomen reveals a distended bladder above the umbilicus. Mildly tender. Genitourinary: Castelan catheter in place with very cloudy and thick urine in the urine bag. Uncircumcised. MUSCULOSKELETAL: No obvious deformities. No clubbing. No cyanosis. No edema. NEUROLOGICAL: Awake and alert. No obvious cranial nerve deficits. Motor grossly within normal limits. Normal speech. PSYCHIATRIC: Appropriate mood and affect; insight and judgment normal. Procedures Ultrasound POC Ultrasound Procedure: A bedside ultrasound was performed with a curvilinear probe which reveals a distended bladder with fluid and sediment on the inferior aspect. The bladder was distended above the umbilicus on ultrasound. The patient tolerated the procedure without difficulty. There was no obvious complications. Course Initial Documented Vital Signs Temperature 100.5 F H 08/11/18 16:13 Pulse Rate 94 H 08/11/18 16:13 Respiratory Rate 19 08/11/18 16:13 Blood Pressure 89/55 L 08/11/18 16:13 Pulse Oximetry 95 08/11/18 16:13 Last Documented Vital Signs Temperature 100.5 F H 08/11/18 16:13 Pulse Rate 94 H 08/11/18 16:13 Respiratory Rate 19 08/11/18 16:13 Blood Pressure 129/62 08/11/18 16:43 Pulse Oximetry 96 08/11/18 16:43 Medical Decision Making MDM Narrative Medical decision making narrative: IV was established, labs are drawn and sent, and the patient was placed on cardiac telemetry monitoring and continuous pulse oximetry monitoring. Bedside ultrasound was performed which reveals a distended bladder that is filled with fluid, there does appear to be thick sediment in the inferior aspect of the bladder. Therefore, the original Castelan catheter was removed and a new Castelan catheter was placed. UA was sent to lab. The patient was febrile at 100.5, was administered Tylenol 650 mg orally and was noted to be slightly hypotensive, therefore, was administer 1 L of IV fluids. I did review the EMR, he grew pansensitive E. coli on his previous admission, therefore, received Rocephin 1 g intravenously. The patient's white count was mildly elevated, creatinine was elevated most likely secondary to obstructive uropathy from obstructive Castelan catheter. The patient had 1400 cc of dark yellow urine output once Castelan catheter was exchanged. His symptoms did improve. I discussed the patient with Dr. Alexis, [facility], who agrees with admission. Medical Screen Exam Complete: Yes Emergency Medical Condition: Yes Differential Diagnosis Differential Diagnosis: Differential diagnosis includes UTI, pyelonephritis, sepsis, urinary retention, BPH, neurogenic bladder, bacteremia, septicemia, complicated UTI. Lab Data Lab results reviewed: Yes I reviewed the patient's lab results. Result diagrams: 08/11/18 16:35 08/11/18 16:35 Lab Results 08/11/18 08/11/18 08/11/18 Range/Units 16:35 16:35 16:35 WBC 11.6 H (4.0-11.0) th/mm3 RBC 3.30 L (4.50-5.90) mil/mm3 Hgb 10.5 L (13.0-17.0) gm/dL Hct 30.8 L (39.0-51.0) % MCV 93.4 (80.0-100.0) fL MCH 31.7 (27.0-34.0) pg MCHC 33.9 (32.0-36.0) % RDW 15.4 (11.6-17.2) % Plt Count 231 (150-450) th/mm3 MPV 8.1 (7.0-11.0) fL Neut % (Auto) 76.8 H (16.0-70.0) % Lymph % (Auto) 9.5 (9.0-44.0) % Avery % (Auto) 13.1 H (0.0-8.0) % Eos % (Auto) 0.4 (0.0-4.0) % Baso % (Auto) 0.2 (0.0-2.0) % Neut # (Auto) 8.9 H (1.8-7.7) th/mm3 Lymph # (Auto) 1.1 (1.0-4.8) th/mm3 Avery # (Auto) 1.5 H (0.0-0.9) th/mm3 Eos # (Auto) 0.0 (0.0-0.4) th/mm3 Baso # (Auto) 0.0 (0.0-0.2) th/mm3 WBC Differential . Differential Comment Auto diff final Sodium 133 L (136-145) meq/L Potassium 4.9 (3.5-5.1) meq/L Chloride 97 L (98-107) meq/L Carbon Dioxide 22.8 (21.0-32.0) meq/L Anion Gap 13 (5-15) meq/L BUN 63 H (7-18) mg/dL Creatinine 2.91 H (0.60-1.30) mg/dL Estimated GFR 21 L (>89) mL/min Random Glucose 130 H (74-106) mg/dL Lactic Acid 2.1 H (0.4-2.0) mmol/L Calcium 8.2 L (8.5-10.1) mg/dL Magnesium 2.3 (1.5-2.5) mg/dL Total Bilirubin 1.1 H (0.2-1.0) mg/dL AST 128 H (15-37) U/L ALT 117 H (12-78) U/L Alkaline Phosphatase 155 H (45-117) U/L Total Protein 6.7 (6.4-8.2) g/dL Albumin 2.3 L (3.4-5.0) g/dL Urine Color (Yellw/Straw) Urine Clarity (Clear) Urine pH (5.0-8.5) Ur Specific [place] (1.002-1.035) Urine Protein (Neg-Trace) mg/dL Urine Glucose (UA) (Negative) mg/dL Urine Ketones (Negative) mg/dL Urine Occult Blood (Negative) Urine Nitrate (Negative) Urine Bilirubin (Negative) Urine Urobilinogen (Less than 2) mg/dL Ur Leukocyte Esterase (Negative) Urine RBC (0-3) /hpf Urine WBC (0-5) /hpf Urine WBC Clumps (None) Urine Bacteria (None) /hpf Micro UA Comment Ur Microscopic Review Urine Culture Comments 08/11/18 Range/Units 16:35 WBC (4.0-11.0) th/mm3 RBC (4.50-5.90) mil/mm3 Hgb (13.0-17.0) gm/dL Hct (39.0-51.0) % MCV (80.0-100.0) fL MCH (27.0-34.0) pg MCHC (32.0-36.0) % RDW (11.6-17.2) % Plt Count (150-450) th/mm3 MPV (7.0-11.0) fL Neut % (Auto) (16.0-70.0) % Lymph % (Auto) (9.0-44.0) % Avery % (Auto) (0.0-8.0) % Eos % (Auto) (0.0-4.0) % Baso % (Auto) (0.0-2.0) % Neut # (Auto) (1.8-7.7) th/mm3 Lymph # (Auto) (1.0-4.8) th/mm3 Avery # (Auto) (0.0-0.9) th/mm3 Eos # (Auto) (0.0-0.4) th/mm3 Baso # (Auto) (0.0-0.2) th/mm3 WBC Differential Differential Comment Sodium (136-145) meq/L Potassium (3.5-5.1) meq/L Chloride (98-107) meq/L Carbon Dioxide (21.0-32.0) meq/L Anion Gap (5-15) meq/L BUN (7-18) mg/dL Creatinine (0.60-1.30) mg/dL Estimated GFR (>89) mL/min Random Glucose (74-106) mg/dL Lactic Acid (0.4-2.0) mmol/L Calcium (8.5-10.1) mg/dL Magnesium (1.5-2.5) mg/dL Total Bilirubin (0.2-1.0) mg/dL AST (15-37) U/L ALT (12-78) U/L Alkaline Phosphatase (45-117) U/L Total Protein (6.4-8.2) g/dL Albumin (3.4-5.0) g/dL Urine Color Red (Yellw/Straw) Urine Clarity Cloudy H (Clear) Urine pH 6.0 (5.0-8.5) Ur Specific [place] 1.008 (1.002-1.035) Urine Protein 100 H (Neg-Trace) mg/dL Urine Glucose (UA) Negative (Negative) mg/dL Urine Ketones Negative (Negative) mg/dL Urine Occult Blood Large H (Negative) Urine Nitrate Negative (Negative) Urine Bilirubin Negative (Negative) Urine Urobilinogen Less than 2 (Less than 2) mg/dL Ur Leukocyte Esterase Large H (Negative) Urine RBC (0-3) /hpf Urine WBC (0-5) /hpf Urine WBC Clumps Many H (None) Urine Bacteria Moderate H (None) /hpf Micro UA Comment Cath-culture ind Ur Microscopic Review Not Reportable Urine Culture Comments Cath-cult indicated Imaging Data Radiologist's impression: Chest X-Ray 08/11/18 16:31 CONCLUSION: Underinflated examination with atelectasis at the lung bases. No acute cardiopulmonary abnormality is identified. ECG Data EKG Prior to Arrival: No Attestation: I personally reviewed and interpreted this ECG as follows: Interpretation: EKG reveals sinus rhythm with a rate of 94. RSR prime in V1, right bundle branch block. Discharge Plan Discharge Disposition Patient Disposition: 30 Still Patient Discharge Condition Condition: Stable Discharge Details Diagnosis: Complicated urinary tract infection, Obstructed, uropathy, Acute kidney injury Physicians Team ED Provider: Rick Potts Primary Care Provider: Oliver Everett Attending Provider: Omi Alexis Status ED Status: Admitted Patient
[2018-08-11] MEDS ORDERED: Sod Chloride 0.9% Inj 1,000 ML IV.SIG SCH ×3 (16:45→22:15)
[2018-08-11 16:50] LABS: Baso % (Auto) 0.2 % (0.0-2.0); Eos % (Auto) 0.4 % (0.0-4.0); Hematocrit 30.8 % (39.0-51.0); Hemoglobin 10.5 gm/dL (13.0-17.0); Lymph # (Auto) 1.1 th/mm3 (1.0-4.8); Lymph % (Auto) 9.5 % (9.0-44.0); Mean Corpuscular HGB Conc 33.9 % (32.0-36.0); Mean Corpuscular Hemoglobin 31.7 pg (27.0-34.0); Mean Corpuscular Volume 93.4 fL (80.0-100.0); Mean Platelet Volume 8.1 fL (7.0-11.0); Mono # (Auto) 1.5 th/mm3 (0.0-0.9); Mono % (Auto) 13.1 % (0.0-8.0); Neut # (Auto) 8.9 th/mm3 (1.8-7.7); Neut % (Auto) 76.8 % (16.0-70.0); Platelet Count 231 th/mm3 (150-450); Red Cell Distribution Width 15.4 % (11.6-17.2); White Blood Count 11.6 th/mm3 (4.0-11.0)
--- NOTE | 2018-08-11 16:54 | XR ---
EXAM DATE: 08/11/2018 4:31 PM EDT AGE/SEX: 82 years / Male INDICATIONS: Fever. CLINICAL DATA: This is the patient's initial encounter. Patient reports that signs and symptoms have been present for 1 day and indicates a pain score of 4/10. MEDICAL/SURGICAL HISTORY: None. None. COMPARISON: [facility], CHEST 1V SINGLE AP, 07/22/2018. . FINDINGS: Portable AP view of the chest demonstrates a normal-sized cardiac silhouette. Lungs are underinflated with atelectasis at the lung bases. No pleural effusion, airspace consolidation, or pneumothorax is identified. The bones and soft tissues demonstrate no acute abnormality. There are degenerative granados es of the thoracic spine. CONCLUSION: Underinflated examination with atelectasis at the lung bases. No acute cardiopulmonary abnormality is identified. Electronically signed by: Star Huynh MD 08/11/2018 4:53 PM EDT
[2018-08-11 17:09] LABS: Bacteria,Urine Moderate /hpf; Bilirubin,Urine Negative (Negative); Clarity,Urine Cloudy (Clear); Color,Urine Red (Yellw/Straw); Glucose,Urine (UA) Negative (Negative); Leukocyte Esterase,Urine Large (Negative); Nitrite,Urine Negative (Negative); Specific Gravity,Urine 1.008 (1.002-1.035)
[2018-08-11 17:15] LABS: Albumin 2.3 g/dL (3.4-5.0); Anion Gap 13 meq/L (5-15); Aspartate Aminotransferase 128 U/L (15-37); Blood Urea Nitrogen 63 mg/dL (7-18); Calcium 8.2 mg/dL (8.5-10.1); Carbon Dioxide 22.8 meq/L (21.0-32.0); Chloride 97 meq/L (98-107); Glomerular Filtration Rate 21 mL/min (>89); Glucose,Random 130 mg/dL (74-106); Magnesium 2.3 mg/dL (1.5-2.5); Potassium 4.9 meq/L (3.5-5.1); Sodium 133 meq/L (136-145)
[2018-08-11 17:19] LABS: Alanine Aminotransferase 117 U/L (12-78); Alkaline Phosphatase 155 U/L (45-117); Total Protein 6.7 g/dL (6.4-8.2)
[2018-08-11] MEDS ORDERED: Acetaminophen 325 MG Tablet PO PRN (17:23)
--- NOTE | 2018-08-11 17:42 | P.HP ---
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 Patient originally presented to [facility] 07/22/2018 with confusion/altered mental status dx with urinary tract infection which urine culture revealed pansensitive E. coli. While patient was in the hospital he became confused and pulled out his Chiang catheter with gross hematuria. CT abdomen/pelvis revealed large clot in bladder and the right iliopsoas hematoma. Dr. Laughlin was following and patient underwent cystoscopy with removal of bilateral ureteral stents 07/26. Patient's status improved and he was DC'd to SNF on 07/29/18 for strengthening. Patient was sent to the ER due to fever. The patient notes increasing lower abdominal distention and burning when he urinates via catheter for the last several days. He also notes subjective fevers at the assisted. He does complain of lower moderate abdominal pain that is located over the suprapubic region and radiates to the back. While in the ER patient had a bedside ultrasound was performed with a curvilinear probe which reveals a distended bladder with fluid and sediment on the inferior aspect. The bladder was distended above the umbilicus on ultrasound. Chiang catheter was exchanged then the patient had 1400 cc of dark yellow urine output of the new chiang. Patient denies any current cough, chest pain, or shortness of breath. 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 This includes certification that hospital inpatient services are reasonable and necessary and in the case of services not specified as inpatient-only under 42 CFR 419.22(n), that they are appropriately provided as inpatient services in accordance to with the 2-midnight benchmark under 43 CFR 412.3(e) Estimated Total Length of Stay (Days): 4 Plans for Post Hospital Care: SNF Review of Systems All other systems reviewed negative except as stated in HPI [facility] - History History Provided By: Patient - Medical History Medical History: Medical History (Last Reviewed 08/11/18 @ 16:13 by Sera Dupont) Hypertension (Acute) BPH (benign prostatic hyperplasia) Degenerative disc disease Gastroesophageal reflux disease History of Dugan's esophagus History of DVT (deep vein thrombosis) Hypothyroidism Osteoarthritis Right bundle branch block - Surgical History Surgical History: Surgical History (Last Reviewed 08/11/18 @ 16:13 by Sera Dupont) Right rotator cuff tear (Acute) Cataract, right eye - Family History Family History: Family History (Last Updated 07/24/18 @ 20:17 by Pavan Serrato MD) Other Family history non-contributory - Tobacco History Second Hand Smoke Exposure: No Tobacco Use In Past 30 Days: No Smoking Status: Former smoker Tobacco Type: Cigarettes - Alcohol History How Often Do You Have a Drink Containing Alcohol: Never - Substance Use History Substance History: No History of Abuse - Travel History Recent Travel in the [place] Within the Last 8 Weeks: No Recent Travel Out of the Country Within the Last 8 Weeks: No - Immunization History Tetanus Immunization: <5 Years Hx Influenza Vaccine This Season: No Medications and Allergies Allergies Allergy/AdvReac Type Severity Reaction Status Date / Time No Known Allergies Allergy Verified 08/11/18 16:10 Home Medications Medication Instructions Recorded Confirmed Type gabapentin 1,200 mg PO HS 07/22/18 08/11/18 History levothyroxine 125 mcg PO DAILY 07/22/18 08/11/18 History metoprolol tartrate 100 mg PO BID 07/22/18 08/11/18 History omeprazole 20 mg PO BID 07/22/18 08/11/18 History terazosin 5 mg PO BID 07/22/18 08/11/18 History vitamins A,C,X-viza-wdomai 2 tab PO BID 07/22/18 08/11/18 History [PreserVision AREDS] Active Medications: Active Medications Acetaminophen (Tylenol) 650 mg PO Q4H PRN PRN Reason: Temp > 100.4 Al Hydroxide/Mg Hydroxide (Milk Of Magnsanjeev Liq) 30 ml PO Q12H PRN PRN Reason: Mild Constipation Sodium Chloride (Ns Inj) 1,000 mls @ 0 mls/hr IV.SIG BOLUS MINESH Last Infusion: 08/11/18 17:04 Dose: Infused Sodium Chloride (Ns Inj) 1,000 mls @ 0 mls/hr IV.SIG BOLUS MINESH Sodium Chloride (Ns Inj) 1,000 mls @ 50 mls/hr IV.CONT .Q20H MINESH Ceftriaxone Sodium 1,000 mg/ (Sodium Chloride) 100 mls @ 200 mls/hr IV.SIG Q24H MINESH Levothyroxine Sodium (Synthroid) 125 mcg PO DAILY MINESH Non-Formulary Medication (Omeprazole [Omeprazole]) 20 mg PO BID MINESH Ondansetron HCl (Zofran Inj) 4 mg IV.PUSH Q6H PRN PRN Reason: NAUSEA OR VOMITING Senna/Docusate Sodium (Elizabeth-Colace) 1 tab PO BID MINESH Terazosin HCl (Hytrin) 5 mg PO BID MINESH Tramadol HCl (Ultram) 50 mg PO Q6H PRN PRN Reason: Pain Exam Vital signs: Vital Signs 08/11/18 16:13 08/11/18 16:43 Temperature 100.5 F H Pulse Rate 94 H Respiratory Rate 19 Blood Pressure 89/55 L 129/62 Pulse Oximetry 95 96 Intake & Output 08/10/18 08/11/18 08/11/18 18:59 06:59 18:59 Intake Total 1000 / 1000 Balance 1000 / 1000 Weight 77.111 kg Intake: IV 1000 / 1000 NS Inj 1,000 ML @ Wide Open IV. 1000 / 1000 SIG BOLUS MINESH Rx#:[id number] Narrative: GENERAL: This is a elderly 82 year old male weak ill appearing CARDIOVASCULAR: Regular rate and rhythm RESPIRATORY: Clear to auscultation. Breath sounds equal bilaterally. GASTROINTESTINAL: Abdomen soft, non-tender, nondistended. Normal active bowel sounds MUSCULOSKELETAL: Extremities without clubbing, cyanosis, or edema. NEURO: Able to awake to voice. Moves all ext x4 Results - Labs CBC & Chem 7: 08/11/18 16:35 08/11/18 16:35 - Imaging Impressions Chest X-Ray 08/11/18 16:31 CONCLUSION: Underinflated examination with atelectasis at the lung bases. No acute cardiopulmonary abnormality is identified. Caprini VTE Risk Assessment Caprini VTE Risk Assessment: Moderate/High Risk (score >= 2) Caprini Risk Assessment Model: Point Value = 1 Point Value = 2 Point Value = 3 Point Value = 5 Age 41-60 Minor surgery BMI > 25 kg/m2 Swollen legs Varicose veins or History of unexplained or recurrent spontaneous Oral contraceptives or hormone replacement Sepsis (< 1 month) Serious lung disease, including pneumonia (< 1 month) Abnormal pulmonary function Acute myocardial infarction Congestive heart failure (< 1 month) History of inflammatory bowel disease Medical patient at bed rest Age 61-74 Arthroscopic surgery Major open surgery (> 45 min) Laparoscopic surgery (> 45 min) Malignancy Confined to bed (> 72 hours) Immobilizing plaster cast Central venous access Age >= 75 History of VTE Family history of VTE Factor V Leiden Prothrombin [id number] Lupus anticoagulant Anticardiolipin antibodies Elevated serum homocysteine Heparin-induced thrombocytopenia Other congenital or acquired thrombophilia Stroke (< 1 month) Elective arthroplasty Hip, pelvis, or leg fracture Acute spinal cord injury (< 1 month) Prophylaxis Regimen: Total Risk Factor Score Risk Level Prophylaxis Regimen 0-1 Low Early ambulation 2 Moderate Order ONE of the following: *Sequential Compression Device (SCD) *Heparin 5000 units SQ BID 3-4 Higher Order ONE of the following medications: *Heparin 5000 units SQ TID *Enoxaparin/Lovenox 40 mg SQ daily (WT < 150 kg, CrCl > 30 mL/min) *Enoxaparin/Lovenox 30 mg SQ daily (WT < 150 kg, CrCl > 10-29 mL/min) *Enoxaparin/Lovenox 30 mg SQ BID (WT < 150 kg, CrCl > 30 mL/min) AND/OR *Sequential Compression Device (SCD) 5 or more Highest Order ONE of the following medications: *Heparin 5000 units SQ TID (Preferred with Epidurals) *Enoxaparin/Lovenox 40 mg SQ daily (WT < 150 kg, CrCl > 30 mL/min) *Enoxaparin/Lovenox 30 mg SQ daily (WT < 150 kg, CrCl > 10-29 mL/min) *Enoxaparin/Lovenox 30 mg SQ BID (WT < 150 kg, CrCl > 30 mL/min) AND *Sequential Compression Device (SCD) Assessment and Plan - Assessment (1) UTI (urinary tract infection) Code(s): N39.0 - Urinary tract infection, site not specified Status: Acute Plan: This is a 82-year-old male with past medical history which includes right bundle branch block since 2049, osteoporosis, gastroesophageal reflux disease, hypertension, hypothyroidism, BPH, degenerative disc disease, peripheral neuropathy and 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 Patient originally presented to [facility] 07/22/2018 with confusion/altered mental status dx with urinary tract infection which urine culture revealed pansensitive E. coli. While patient was in the hospital he became confused and pulled out his Chiang catheter with gross hematuria. CT abdomen/pelvis revealed large clot in bladder and the right iliopsoas hematoma. Dr. Laughlin was following and patient underwent cystoscopy with removal of bilateral ureteral stents 07/26. Patient's status improved and he was DC'd to SNF on 07/29/18 for strengthening. Patient was sent to the ER due to fever. The patient notes increasing lower abdominal distention and burning when he urinates via catheter for the last several days. He also notes subjective fevers at the assisted. He does complain of lower moderate abdominal pain that is located over the suprapubic region and radiates to the back. While in the ER patient had a bedside ultrasound was performed with a curvilinear probe which reveals a distended bladder with fluid and sediment on the inferior aspect. The bladder was distended above the umbilicus on ultrasound. Chiang catheter was exchanged then the patient had 1400 cc of dark yellow urine output of the new chiang. Patient denies any current cough, chest pain, or shortness of breath. UTI Chiang catheter was exchanged in ER Patient did have hypotensive episode while in the ER 89/55 with T max of 100.5 and UA reviewed consistent with UTI Urine culture pending patient started on Rocephin 1 gram Q24H and vancomycin with pharmacy to dose IVF Recent Iliopsoas hematoma patient he had a fall prior to previous hospitalization 07/22/18 and landed on the corner of a trunk, healing ecchymosis R flank area Abdomen/Pelvis CT 07/24/18 revealed: 1. Bladder filled with clot partially decompressed by Chiang. Etiology for hematuria is not identified in this anticoagulated patient. 2. Smaller moderate right iliopsoas hematoma Coumadin on hold HTN Hold home metoprolol 100 mg PO daily and enalapril 20 mg PO BID Hypothyroidism Continue home Synthroid BPH continue home Terazosin <Omi Alexis - Last Filed: 08/13/18 16:26> History of Present Illness Primary Care Physician: Oliver Everett - Diagnosis (1) UTI (urinary tract infection) Inpatient Certification: I certify that the inpatient services were ordered in accordance with Medicare regulations governing the order. This includes certification that hospital inpatient services are reasonable and necessary and in the case of services not specified as inpatient-only under 42 CFR 419.22(n), that they are appropriately provided as inpatient services in accordance to with the 2-midnight benchmark under 43 CFR 412.3(e) [facility] - Medical History Medical History: Medical History (Last Reviewed 08/11/18 @ 16:13 by Sera Dupont) Hypertension (Acute) BPH (benign prostatic hyperplasia) Degenerative disc disease Gastroesophageal reflux disease History of Dugan's esophagus History of DVT (deep vein thrombosis) Hypothyroidism Osteoarthritis Right bundle branch block - Surgical History Surgical History: Surgical History (Last Reviewed 08/11/18 @ 16:13 by Sera Dupont) Right rotator cuff tear (Acute) Cataract, right eye - Family History Family History: Family History (Last Updated 07/24/18 @ 20:17 by Pavan Serrato MD) Other Family history non-contributory Medications and Allergies Active Medications: Active Medications Acetaminophen (Tylenol) 650 mg PO Q4H PRN PRN Reason: Temp > 100.4 Last Admin: 08/12/18 12:36 Dose: 650 mg Al Hydroxide/Mg Hydroxide (Milk Of Magnesia Liq) 30 ml PO Q12H PRN PRN Reason: Mild Constipation Sodium Chloride (Ns Inj) 1,000 mls @ 125 mls/hr IV.CONT .Q8H MINESH Last Admin: 08/13/18 06:53 Dose: 125 mls/hr Sodium Chloride (Ns Inj) 1,000 mls @ 0 mls/hr IV.SIG BOLUS MINESH Last Infusion: 08/11/18 23:25 Dose: Infused Norepinephrine Bitartrate (Levophed-Dextrose 4 Mg/250 Ml Drip) 4 mg in 250 mls @ 7.5 mls/hr IV.SIG TITRATE PRN; Protocol PRN Reason: Per Protocol Sodium Chloride (Ns Inj) 500 mls @ 0 mls/hr IV.SIG BOLUS [facility] Cefepime HCl 1,000 mg/ Sodium (Chloride) 100 mls @ 200 mls/hr IV.SIG Q8H [facility] Last Admin: 08/13/18 11:33 Dose: 200 mls/hr Levothyroxine Sodium (Synthroid) 125 mcg PO DAILY@0600 [facility] Last Admin: 08/13/18 06:17 Dose: 125 mcg Miscellaneous Information ([facility] Ordered Lab Info) 0 each OTHER ONCE ONE Stop: 08/15/18 05:46 Ondansetron HCl (Zofran Inj) 4 mg IV.PUSH Q6H PRN PRN Reason: NAUSEA OR VOMITING Last Admin: 08/12/18 13:37 Dose: 4 mg Pantoprazole Sodium (Protonix) 20 mg PO BID [facility] Last Admin: 08/13/18 08:17 Dose: 20 mg Senna/Docusate Sodium (Elizabeth-Colace) 1 tab PO BID [facility] Last Admin: 08/13/18 08:17 Dose: 1 tab Terazosin HCl (Hytrin) 5 mg PO BID [facility] Last Admin: 08/13/18 08:17 Dose: 5 mg Terbutaline Sulfate (Brethine Inj) 1 mg SQ UNSCH PRN PRN Reason: For Extravasation Tramadol HCl (Ultram) 50 mg PO Q6H PRN PRN Reason: PAIN SCALE 1 TO 10 Exam Vital signs: Vital Signs 08/12/18 18:00 08/12/18 20:00 08/12/18 20:08 Temperature 99.0 F Pulse Rate 99 H 97 H Respiratory Rate 21 Blood Pressure 123/58 L Pulse Oximetry 99 100 08/12/18 22:00 08/13/18 00:00 08/13/18 02:00 Temperature 99.0 F Pulse Rate 108 H 109 H 100 H Respiratory Rate 29 H Blood Pressure 120/58 L Pulse Oximetry 96 08/13/18 04:00 08/13/18 04:45 08/13/18 05:00 Temperature 99.0 F Pulse Rate 99 H 102 H 104 H Respiratory Rate 24 27 H 28 H Blood Pressure 130/64 130/63 121/58 L Pulse Oximetry 100 95 96 08/13/18 05:15 08/13/18 05:30 08/13/18 05:45 Temperature Pulse Rate 98 H 97 H 96 H Respiratory Rate 27 H 25 H 24 Blood Pressure 125/62 125/62 128/63 Pulse Oximetry 97 98 97 08/13/18 06:00 08/13/18 06:15 08/13/18 06:30 Temperature Pulse Rate 101 H 94 H 96 H Respiratory Rate 33 H 28 H 33 H Blood Pressure 129/64 126/64 143/67 H Pulse Oximetry 97 97 98 08/13/18 06:45 08/13/18 07:00 08/13/18 07:15 Temperature Pulse Rate 95 H 96 H 95 H Respiratory Rate 22 26 H 24 Blood Pressure 126/59 L 123/63 126/64 Pulse Oximetry 97 97 97 08/13/18 07:30 08/13/18 07:45 08/13/18 08:00 Temperature 99.4 F Pulse Rate 98 H 93 H 93 H Respiratory Rate 28 H 24 24 Blood Pressure 125/63 123/60 132/69 Pulse Oximetry 98 96 97 08/13/18 08:15 08/13/18 08:30 08/13/18 08:45 Temperature Pulse Rate 91 H 97 H 95 H Respiratory Rate 35 H 31 H 34 H Blood Pressure 129/62 128/61 124/63 Pulse Oximetry 97 97 98 08/13/18 09:00 08/13/18 09:15 08/13/18 09:30 Temperature Pulse Rate 93 H 90 91 H Respiratory Rate 32 H 23 33 H Blood Pressure 123/69 126/67 134/71 Pulse Oximetry 97 97 97 08/13/18 09:45 08/13/18 10:00 08/13/18 10:15 Temperature Pulse Rate 93 H 91 H 90 Respiratory Rate 28 H 24 25 H Blood Pressure 131/60 131/61 129/63 Pulse Oximetry 98 98 98 08/13/18 10:30 08/13/18 10:45 08/13/18 11:00 Temperature Pulse Rate 95 H 96 H 91 H Respiratory Rate 23 33 H 22 Blood Pressure 127/61 127/65 123/60 Pulse Oximetry 97 96 96 08/13/18 11:15 08/13/18 11:30 08/13/18 11:45 Temperature Pulse Rate 90 91 H 89 Respiratory Rate 23 24 24 Blood Pressure 131/65 133/66 129/64 Pulse Oximetry 96 97 97 08/13/18 12:00 08/13/18 12:15 08/13/18 12:30 Temperature 98.4 F Pulse Rate 93 H 92 H 92 H Respiratory Rate 23 23 25 H Blood Pressure 137/71 135/65 137/67 Pulse Oximetry 98 97 97 08/13/18 14:00 08/13/18 16:00 Temperature 99.1 F Pulse Rate 88 87 Respiratory Rate 22 Blood Pressure 131/63 Pulse Oximetry 97 Intake & Output 08/12/18 08/13/18 08/13/18 18:59 06:59 18:59 Intake Total 1820 / 1820 2400 / 2400 Output Total 1150 / 1150 1350 / 1350 Balance 670 / 670 1050 / 1050 Weight 106.6 kg Intake: IV 1100 / 1100 2100 / 2100 NS Inj 1,000 ML @ 125 mls/hr IV 1000 / 1000 2000 / 2000 .CONT .Q8H MINESH Rx#:[id number] Zosyn 2.25 GM Premix 50 ML @ 100 / 100 100 / 100 100 mls/hr IV.SIG Q8H MINESH Rx#: [id number] Oral 720 / 720 300 / 300 Output: Stool 0 / 0 Urine/Stool Mix 0 / 0 Urine Amount (Catheter) 1150 / 1150 1350 / 1350 Indwelling Urethral Catheter 1150 / 1150 1350 / 1350 Other: Date of Last Bowel Movement 08/10/18 08/10/18 08/10/18 # Bowel Movements 0 # Incontinent Bowel Movements 0 Results - Labs CBC & Chem 7: 08/12/18 04:42 08/13/18 04:04 Labs: Laboratory Results - last 24 hr 08/13/18 04:04 Creatinine 0.92 Estimated GFR 78 L Caprini VTE Risk Assessment Caprini Risk Assessment Model: Point Value = 1 Point Value = 2 Point Value = 3 Point Value = 5 Age 41-60 Minor surgery BMI > 25 kg/m2 Swollen legs Varicose veins or History of unexplained or recurrent spontaneous Oral contraceptives or hormone replacement Sepsis (< 1 month) Serious lung disease, including pneumonia (< 1 month) Abnormal pulmonary function Acute myocardial infarction Congestive heart failure (< 1 month) History of inflammatory bowel disease Medical patient at bed rest Age 61-74 Arthroscopic surgery Major open surgery (> 45 min) Laparoscopic surgery (> 45 min) Malignancy Confined to bed (> 72 hours) Immobilizing plaster cast Central venous access Age >= 75 History of VTE Family history of VTE Factor V Leiden Prothrombin [id number] Lupus anticoagulant Anticardiolipin antibodies Elevated serum homocysteine Heparin-induced thrombocytopenia Other congenital or acquired thrombophilia Stroke (< 1 month) Elective arthroplasty Hip, pelvis, or leg fracture Acute spinal cord injury (< 1 month) Prophylaxis Regimen: Total Risk Factor Score Risk Level Prophylaxis Regimen 0-1 Low Early ambulation 2 Moderate Order ONE of the following: *Sequential Compression Device (SCD) *Heparin 5000 units SQ BID 3-4 Higher Order ONE of the following medications: *Heparin 5000 units SQ TID *Enoxaparin/Lovenox 40 mg SQ daily (WT < 150 kg, CrCl > 30 mL/min) *Enoxaparin/Lovenox 30 mg SQ daily (WT < 150 kg, CrCl > 10-29 mL/min) *Enoxaparin/Lovenox 30 mg SQ BID (WT < 150 kg, CrCl > 30 mL/min) AND/OR *Sequential Compression Device (SCD) 5 or more Highest Order ONE of the following medications: *Heparin 5000 units SQ TID (Preferred with Epidurals) *Enoxaparin/Lovenox 40 mg SQ daily (WT < 150 kg, CrCl > 30 mL/min) *Enoxaparin/Lovenox 30 mg SQ daily (WT < 150 kg, CrCl > 10-29 mL/min) *Enoxaparin/Lovenox 30 mg SQ BID (WT < 150 kg, CrCl > 30 mL/min) AND *Sequential Compression Device (SCD) Assessment and Plan - Assessment (1) UTI (urinary tract infection) Code(s): N39.0 - Urinary tract infection, site not specified Status: Acute - Plan Patient examined. Assessment and plan formulated with Emmy MUPRHY I agree with the above.
[2018-08-11] MEDS ORDERED: Vancomycin Consult Pharmacy OTHER PRN (17:48)
[2018-08-11] MEDS ORDERED: Vancomycin Inj 1 GM/200 ML PIGGYBACK IV.SIG SCH (18:00)
[2018-08-11] MEDS: Sod Chloride 0.9% Inj 1,000 ML IV.CONT SCH (19:02)
--- NOTE | 2018-08-11 19:44 | ECG ---
Date Performed: 08/11/2018 Time Performed: 16:16:10 PTAGE: 82 years EKG: Baseline artifact present Sinus rhythm RIGHT BUNDLE BRANCH BLOCK ABNORMAL ECG No significant change from prior electrocardiogram. PREVIOUS TRACING : 07/22/2018 20.59 DOCTOR: Bryan Brown Interpretating Date/Time 08/11/2018 19:43:11
[2018-08-11] MEDS ORDERED: Vancomycin Inj 2,000 MG in Sodium Chlor 0.9% Inj 500 ML IV.SIG ONE (20:00)
[2018-08-11] MEDS ORDERED: Sod Chloride 0.9% Inj 1,000 ML IV.SIG ONE (20:45)
--- NOTE | 2018-08-11 20:45 | P.CONCC ---
History of Present Illness Service: Critical Care Medicine Consult date: 08/11/18 Requesting Physician: Omi Alexis Reason for Consult: UTI, sepsis Primary Care Provider: Oliver Everett Family Provider: Oliver Everett Chief Complaint: abdominal pain History of Present Illness: 82-year-old male with past medical history of hypertension, hypothyroidism, BPH, peripheral neuropathy who presented from [facility] to [facility] emergency department around 4 PM on due to fever. He was recently admitted to [facility] 07/22 through 07/29/18. At that time he was treated for pansensitive E. coli UTI. He had urinary retention and Castelan was placed which was complicated by gross hematuria in the setting of supratherapeutic INR of 5.5 which was treated with CBI under the care of Dr. Haseeb Laughlin. Per documentation he underwent cystoscopy and removal of bilateral ureteral stents on 07/26 though I cannot find the operative note in the new EMR. He had been discharged with Castelan but noted couple of days of burning with urination as well as lower abdominal discomfort. Ultrasound in the ED confirmed urinary retention. He has acute kidney injury with creatinine 2.91 (prior 0.63). Castelan was replaced and there was 1400 of dark yellow output. Temperature in the ED was 100.5. White blood count was 11.6. Initial blood pressure was 89/55. He received 1 L normal saline bolus and blood pressure normalized. He received Tylenol, Rocephin 1 g IV, 1 L normal saline bolus in the emergency department. He was admitted to [facility] and was continued on Rocephin and vancomycin was added. When he arrived to the floor his blood pressure was 73/42. An additional 1 L normal saline bolus was ordered. About 400 of that has gone in and blood pressure is 81/43. He is transferred to [facility] with sales process manager consult due to concerns for sepsis and hypotension. Review of Systems All other systems reviewed negative except as stated in HPI Constitutional: Reports chills, Reports fever(s) PMFSH - History History Provided By: Patient - Medical History Medical History: Medical History (Last Reviewed 08/11/18 @ 21:29 by Stephanie Bergman MD) Hypertension (Acute) BPH (benign prostatic hyperplasia) Degenerative disc disease Gastroesophageal reflux disease History of Dugan's esophagus History of DVT (deep vein thrombosis) Hypothyroidism Osteoarthritis Right bundle branch block - Surgical History Surgical History: Surgical History (Last Reviewed 08/11/18 @ 21:29 by Stephanie Bergman MD) Right rotator cuff tear (Acute) Cataract, right eye - Family History Family History: Family History (Last Updated 08/14/18 @ 12:03 by Yvette Day MD) Mother Old age Father [place] [employer] Son AIDS (acquired immune deficiency syndrome) Other Family history non-contributory - Tobacco History Second Hand Smoke Exposure: No Tobacco Use In Past 30 Days: No Smoking Status: Former smoker Tobacco Type: Cigarettes - Alcohol History How Often Do You Have a Drink Containing Alcohol: Never - Substance Use History Substance History: No History of Abuse - Travel History Recent Travel in the [place] Within the Last 8 Weeks: No Recent Travel Out of the Country Within the Last 8 Weeks: No - Immunization History Tetanus Immunization: <5 Years Hx Influenza Vaccine This Season: No Medications and Allergies Active Medications: Active Medications Acetaminophen (Tylenol) 650 mg PO Q4H PRN PRN Reason: Temp > 100.4 Al Hydroxide/Mg Hydroxide (Milk Of Magnsanjeev Liq) 30 ml PO Q12H PRN PRN Reason: Mild Constipation Sodium Chloride (Ns Inj) 1,000 mls @ 100 mls/hr IV.CONT .Q10H MINESH Last Admin: 08/11/18 19:02 Dose: 100 mls/hr Ceftriaxone Sodium 1,000 mg/ (Sodium Chloride) 100 mls @ 200 mls/hr IV.SIG Q24H MINESH Vancomycin HCl 2,000 mg/ (Sodium Chloride) 520 mls @ 250 mls/hr IV.SIG ONCE ONE Stop: 08/11/18 22:04 Sodium Chloride (Ns Inj) 1,000 mls @ 999 mls/hr IV.SIG BOLUS ONE Stop: 08/11/18 21:45 Levothyroxine Sodium (Synthroid) 125 mcg PO DAILY@0600 MINESH Ondansetron HCl (Zofran Inj) 4 mg IV.PUSH Q6H PRN PRN Reason: NAUSEA OR VOMITING Pantoprazole Sodium (Protonix) 20 mg PO BID [facility] Pharmacy Profile Note (Vancomycin Consult Pharmacy) 1 each OTHER UNSCH PRN PRN Reason: Pharmacy to dose Senna/Docusate Sodium (Elizabeth-Colace) 1 tab PO BID [facility] Terazosin HCl (Hytrin) 5 mg PO BID MINESH Tramadol HCl (Ultram) 50 mg PO Q6H PRN PRN Reason: PAIN SCALE 1 TO 10 Allergies Allergy/AdvReac Type Severity Reaction Status Date / Time No Known Allergies Allergy Verified 08/11/18 16:10 Home Medications Medication Instructions Recorded Confirmed Type levothyroxine 125 mcg PO DAILY 07/22/18 08/11/18 History omeprazole 20 mg PO BID 07/22/18 08/11/18 History terazosin 5 mg PO BID 07/22/18 08/11/18 History vitamins A,C,Z-adxa-gkncpb 2 tab PO BID 07/22/18 08/11/18 History [PreserVision AREDS] Physical Exam Vital signs: Vital Signs 08/11/18 16:13 08/11/18 16:43 08/11/18 20:37 Temperature 100.5 F H 98.8 F Pulse Rate 94 H 77 Respiratory Rate 19 16 Blood Pressure 89/55 L 129/62 73/42 L Pulse Oximetry 95 96 99 Intake & Output 08/11/18 08/11/18 08/12/18 06:59 18:59 06:59 Intake Total 1100 / 1100 Output Total 1000 / 1000 Balance 100 / 100 Weight 77.111 kg Intake: IV 1100 / 1100 NS Inj 1,000 ML @ Wide Open IV. 1000 / 1000 SIG BOLUS MINESH Rx#:[id number] Rocephin Inj 1,000 MG In NS Inj 100 / 100 100 ML @ 200 mls/hr IV.SIG ONCE ONE Rx#:[id number] Output: Urine Amount (Catheter) 1000 / 1000 Indwelling Urethral Catheter 1000 / 1000 Narrative: GENERAL: Elderly gentleman who is awake, pleasant, interactive. SKIN: Warm to touch, dry, no rash. HEAD: Atraumatic. Normocephalic. EYES: Pupils equal and round. No scleral icterus. No injection or drainage. ENT: No nasal bleeding or discharge. Mucous membranes dry. NECK: Trachea midline. Jugular veins are flat. CARDIOVASCULAR: Regular rate and rhythm. No murmurs rubs or gallops. RESPIRATORY: Breathing comfortably with no accessory muscle use.. Clear to auscultation. Breath sounds equal bilaterally. On room air. GASTROINTESTINAL: Abdomen soft, non-tender, nondistended. He states when he palpates suprapubic "it makes him feel like he has to go to the bathroom" but he denies tenderness. No rebound or guarding. No costovertebral angle tenderness. MUSCULOSKELETAL: Extremities without clubbing, cyanosis. Trace pedal edema. NEUROLOGICAL: Awake and alert. He is oriented to [facility], year, self. No obvious cranial nerve deficits. Motor grossly within normal limits. Normal speech. - Urinary Catheter Management Indwelling Urethral Catheter Cath placed during this visit: yes Reason for continuing: Other continuation reason Insertion date: 08/11/18 Insertion time: 16:35 Septic Shock Reassessment Septic shock perfusion: reassessment completed Assessment and Plan - Problem List (1) Severe sepsis Code(s): A41.9 - Sepsis, unspecified organism; R65.20 - Severe sepsis without septic shock Status: Acute (2) HTN (hypertension) Code(s): I10 - Essential (primary) hypertension Status: Chronic (3) History of tobacco abuse Code(s): Z87.891 - Personal history of nicotine dependence Status: Chronic (4) Peripheral neuropathy Code(s): G62.9 - Polyneuropathy, unspecified Status: Chronic (5) GERD (gastroesophageal reflux disease) Code(s): K21.9 - Gastro-esophageal reflux disease without esophagitis Status: Chronic (6) Transaminitis Code(s): R74.0 - Nonspecific elevation of levels of transaminase and lactic acid dehydrogenase [LDH] Status: Resolved (7) Hypothyroidism Code(s): E03.9 - Hypothyroidism, unspecified Status: Chronic (8) UTI (urinary tract infection) Code(s): N39.0 - Urinary tract infection, site not specified Status: Acute - Assessment and Plan Plan: NEURO: Peripheral neuropathy Gabapentin 1200 nightly held on admission due to Acute kidney injury. RESP: Prior history of tobacco abuse Continuous pulse ox CV: Hypotension secondary to severe sepsis. Essential hypertension at baseline At this point appears fluid responsive and appears he will tolerate additional fluid as his jugular veins are flat, lungs are clear, dry mucous membranes. However, will initiate Levophed if needed to maintain mean arterial pressure greater than 65. Received 1 L normal saline bolus. We will give at least an additional 1 L and continue to bolus as needed. Lactic acid 2.1, clearing. GI: GERD Continue Protonix 20 mg p.o. twice daily, chronic dose Transaminitislikely secondary to sepsis. Will evaluate on abdominal ultrasound. FEN/RENAL: Urinary retention Acute kidney injury Suspect creatinine will improve with resolution of urinary retention. Fluid resuscitation as per above. ID: UTI present on admission, healthcare associated, patient with indwelling Castelan from SNF, recent CBI and cystoscopy peer Follow-up urine culture and blood cultures. Continue vancomycin for now. Broaden antimicrobial coverage to cefepime. Severe sepsis HEME: Monitor CBC He was previously on warfarin due to recurrent history of DVT but has been off anticoagulant therapy following recent iliopsoas hematoma and hematuria. ENDO: Euglycemic Hypothyroidism Continue Synthroid 125 mcg p.o. daily PROPH: SCDs for DVT prophylaxis. Protonix will provide stress ulcer prophylaxis as per above. ACCESS: Peripheral IV providing adequate access at this time. We will place intravenous line if vasopressors become necessary. Full code Patient has severe sepsis with hypotension and Acute kidney injury requiring ongoing fluid resuscitation. He is at high risk for further deterioration or . Patient updated at bedside regarding plan of care. Critical care time 40 minutes exclusive of separately billable procedures.
[2018-08-11] MEDS: Senna/Docusate Sodium 8.6/50 MG Tablet PO SCH (22:12)
[2018-08-11] MEDS: Pantoprazole Sodium 20 MG DR Tablet PO SCH (22:13)
[2018-08-11] MEDS: Piperacil/Tazo 2.25 GM Premix 50 ML IV.SIG SCH (23:25)
[2018-08-12] MEDS ORDERED: Sodium Chlor 0.9% Inj 500 ML IV.SIG SCH (01:00)
[2018-08-12 05:00] LABS: Baso % (Auto) 0.1 % (0.0-2.0); Eos # (Auto) 0.1 th/mm3 (0.0-0.4); Eos % (Auto) 0.7 % (0.0-4.0); Hematocrit 23.4 % (39.0-51.0); Lymph # (Auto) 0.8 th/mm3 (1.0-4.8); Lymph % (Auto) 7.6 % (9.0-44.0); Mean Corpuscular HGB Conc 34.1 % (32.0-36.0); Mean Corpuscular Hemoglobin 31.7 pg (27.0-34.0); Mean Corpuscular Volume 93.1 fL (80.0-100.0); Mean Platelet Volume 7.8 fL (7.0-11.0); Mono # (Auto) 0.9 th/mm3 (0.0-0.9); Neut # (Auto) 8.2 th/mm3 (1.8-7.7); Neut % (Auto) 82.6 % (16.0-70.0); Platelet Count 196 th/mm3 (150-450); Red Blood Count 2.52 mil/mm3 (4.50-5.90); Red Cell Distribution Width 15.6 % (11.6-17.2); White Blood Count 9.9 th/mm3 (4.0-11.0)
[2018-08-12 05:23] LABS: Carbon Dioxide 19.3 meq/L (21.0-32.0); Potassium 4.3 meq/L (3.5-5.1)
[2018-08-12 05:40] LABS: Total Protein 5.3 g/dL (6.4-8.2)
[2018-08-12] MEDS: Levothyroxine 125 MCG Tablet PO SCH (06:07)
--- NOTE | 2018-08-12 10:12 | P.PNCC ---
Subjective Subjective Remarks/Hospital Course: 82-year-old male with past medical history of hypertension, hypothyroidism, BPH, peripheral neuropathy [facility] emergency department around 4 PM on due to fever. He was recently admitted to [facility] 07/22 through 07/29/18. At that time he was treated for pansensitive E. coli UTI. He had urinary retention and Castelan was placed which was complicated by gross hematuria in the setting of supratherapeutic INR of 5.5 which was treated with CBI under the care of Dr. Haseeb Laughlin. Per documentation he underwent cystoscopy and removal of bilateral ureteral stents on 07/26 though I cannot find the operative note in the new EMR. He had been discharged with Castelan but noted couple of days of burning with urination as well as lower abdominal discomfort. Ultrasound in the ED confirmed urinary retention. He has acute kidney injury with creatinine 2.91 (prior 0.63). Castelan was replaced and there was 1400 of dark yellow output. Temperature in the ED was 100.5. White blood count was 11.6. Initial blood pressure was 89/55. He received 1 L normal saline bolus and blood pressure normalized. He received Tylenol, Rocephin 1 g IV, 1 L normal saline bolus in the emergency department. He was admitted to [facility] and was continued on Rocephin and vancomycin was added. When he arrived to the floor his blood pressure was 73/42. An additional 1 L normal saline bolus was ordered. About 400 of that has gone in and blood pressure is 81/43. He is transferred to [facility] with statistical modeler consult due to concerns for sepsis and hypotension. SUBJ 08/12: Hypotension has resolved with fluid resuscitation. Patient wakes up easily follows commands. Blood culture growing gram-negative rods. Infectious disease consult requested. Objective Vital Signs / I&O: Vital Signs 08/11/18 16:13 08/11/18 16:43 08/11/18 20:37 Temperature 100.5 F H 98.8 F Pulse Rate 94 H 77 Respiratory Rate 19 16 Blood Pressure 89/55 L 129/62 73/42 L Pulse Oximetry 95 96 99 08/11/18 20:53 08/11/18 21:17 08/11/18 21:30 Temperature 97.8 F Pulse Rate 77 79 81 Respiratory Rate 16 20 26 H Blood Pressure 81/43 L 95/52 L Pulse Oximetry 94 L 96 97 08/11/18 21:45 08/11/18 22:00 08/11/18 22:02 Temperature Pulse Rate 81 82 82 Respiratory Rate 21 21 Blood Pressure 86/48 L 91/50 L Pulse Oximetry 97 94 L 08/11/18 22:03 08/11/18 22:15 08/11/18 22:29 Temperature Pulse Rate 82 80 Respiratory Rate 20 22 Blood Pressure 82/44 L 80/42 L Pulse Oximetry 98 95 96 08/11/18 22:30 08/11/18 22:31 08/11/18 22:45 Temperature Pulse Rate 80 80 82 Respiratory Rate 21 22 18 Blood Pressure 78/41 L 78/43 L 97/50 L Pulse Oximetry 96 97 95 08/11/18 23:00 08/11/18 23:15 08/11/18 23:30 Temperature Pulse Rate 88 96 H 96 H Respiratory Rate 18 20 23 Blood Pressure 124/59 L 119/57 L 120/59 L Pulse Oximetry 88 L 79 L 94 L 08/11/18 23:45 08/12/18 00:00 08/12/18 00:15 Temperature Pulse Rate 90 90 91 H Respiratory Rate 20 22 20 Blood Pressure 126/60 86/47 L 124/58 L Pulse Oximetry 91 L 94 L 93 L 08/12/18 00:30 08/12/18 00:45 08/12/18 01:00 Temperature Pulse Rate 94 H 93 H 94 H Respiratory Rate 22 19 21 Blood Pressure 115/58 L 114/59 L Pulse Oximetry 96 95 96 08/12/18 01:02 08/12/18 01:15 08/12/18 01:30 Temperature Pulse Rate 94 H 99 H 97 H Respiratory Rate 16 21 21 Blood Pressure 127/60 140/62 119/56 L Pulse Oximetry 95 96 95 08/12/18 01:48 08/12/18 02:00 08/12/18 02:15 Temperature Pulse Rate 96 H 97 H 96 H Respiratory Rate 22 21 22 Blood Pressure 99/53 L 129/60 97/50 L Pulse Oximetry 95 93 L 95 08/12/18 02:30 08/12/18 02:45 08/12/18 03:00 Temperature Pulse Rate 96 H 97 H 96 H Respiratory Rate 22 27 H 18 Blood Pressure 100/50 L 116/56 L 123/59 L Pulse Oximetry 96 91 L 82 L 08/12/18 03:15 08/12/18 03:30 08/12/18 03:45 Temperature Pulse Rate 103 H 106 H 103 H Respiratory Rate 16 24 24 Blood Pressure 129/60 128/62 107/53 L Pulse Oximetry 95 96 96 08/12/18 04:00 08/12/18 04:15 08/12/18 04:30 Temperature Pulse Rate 100 H 102 H 99 H Respiratory Rate 22 24 25 H Blood Pressure 89/49 L 91/54 L 84/45 L Pulse Oximetry 95 94 L 95 08/12/18 04:45 08/12/18 05:00 08/12/18 05:15 Temperature Pulse Rate 99 H 104 H 107 H Respiratory Rate 24 22 25 H Blood Pressure 97/51 L 140/63 125/58 L Pulse Oximetry 95 76 L 96 08/12/18 05:30 08/12/18 05:45 08/12/18 06:00 Temperature Pulse Rate 107 H 104 H 103 H Respiratory Rate 33 H 20 27 H Blood Pressure 131/60 117/57 L 101/53 L Pulse Oximetry 95 95 95 08/12/18 06:15 08/12/18 08:00 08/12/18 09:00 Temperature 98.0 F Pulse Rate 104 H 104 H 102 H Respiratory Rate 20 26 H Blood Pressure 106/54 L 105/53 L Pulse Oximetry 95 97 Intake & Output 08/11/18 08/12/18 08/12/18 18:59 06:59 18:59 Intake Total 1100 / 1100 2820 / 2820 Output Total 1000 / 1000 1000 / 1000 Balance 100 / 100 1820 / 1820 Weight 77.111 kg 73.936 kg Intake: IV 1100 / 1100 2820 / 2820 NS Inj 1,000 ML @ 125 mls/hr IV 250 / 250 .CONT .Q8H MINESH Rx#:[id number] Zosyn 2.25 GM Premix 50 ML @ 50 / 50 100 mls/hr IV.SIG Q8H MINESH Rx#: [id number] NS Inj 1,000 ML @ Wide Open IV. 1000 / 1000 2000 / 1999 SIG BOLUS MINESH Rx#:[id number] Vancomycin Inj 2,000 MG In NS 520 / 520 Inj 500 ML @ 250 mls/hr IV.SIG ONCE ONE Rx#:[id number] Rocephin Inj 1,000 MG In NS Inj 100 / 100 100 ML @ 200 mls/hr IV.SIG ONCE ONE Rx#:[id number] Output: Urine Amount (Catheter) 1000 / 1000 1000 / 1000 Indwelling Urethral Catheter 1000 / 1000 1000 / 1000 Other: Date of Last Bowel Movement 08/10/18 Weight On Admission 72.5 kg Result Diagrams: 08/12/18 04:42 08/12/18 04:42 Objective Remarks: GENERAL: Elderly gentleman who is awake, interactive. SKIN: Warm to touch, dry, no rash. HEAD: Atraumatic. Normocephalic. EYES: Pupils equal and round. No scleral icterus. No injection or drainage. ENT: No nasal bleeding or discharge. Mucous membranes dry. NECK: Trachea midline. Jugular veins are flat. CARDIOVASCULAR: Regular rate and rhythm. No murmurs rubs or gallops. RESPIRATORY: Breathing comfortably with no accessory muscle use.. Clear to auscultation. Breath sounds equal bilaterally. On room air. GASTROINTESTINAL: Abdomen soft, non-tender, nondistended. No tenderness. No rebound or guarding. No costovertebral angle tenderness. MUSCULOSKELETAL: Extremities without clubbing, cyanosis. Trace pedal edema. NEUROLOGICAL: Awake and alert. Oriented to place, year, self. No obvious cranial nerve deficits. Motor grossly within normal limits. Normal speech. Assessment and Plan - Assessment and Plan Plan: NEURO: Peripheral neuropathy Gabapentin 1200 nightly held on admission due to Acute kidney injury. RESP: Prior history of tobacco abuse Continuous pulse ox, pulmonary toilet CV: Hypotension secondary to severe sepsis-resolved Essential hypertension at baseline Fluid responsive, appears adequately resuscitated. Received 2 L normal saline bolus. Lactic acid was 2.1, now cleared to 0.7 GI: GERD Continue Protonix 20 mg p.o. twice daily, chronic dose Transaminitislikely secondary to sepsis. Will evaluate on abdominal ultrasound. FEN/RENAL: Urinary retention Acute kidney injury Fluid resuscitation as per above. Creat down to 1.6 ID: UTI present on admission, healthcare associated, patient with indwelling Castelan from SNF, recent CBI and cystoscopy peer Follow-up urine culture and blood cultures. Continue vancomycin and cefepime. Infectious diseases consulted Severe sepsis Gram-negative bacteremia HEME: Monitor CBC He was previously on warfarin due to recurrent history of DVT but has been off anticoagulant therapy following recent iliopsoas hematoma and hematuria. ENDO: Euglycemic Hypothyroidism Continue Synthroid 125 mcg p.o. daily PROPH: SCDs for DVT prophylaxis. Protonix will provide stress ulcer prophylaxis as per above. ACCESS: Peripheral IV providing adequate access at this time. Full code Level 3 Dr. Gamez to assume care 08/13/18, he is aware
[2018-08-12] MEDS: Piperacil/Tazo 2.25 GM Premix 50 ML IV.SIG SCH ×3 (10:17→22:09)
[2018-08-12] MEDS: Senna/Docusate Sodium 8.6/50 MG Tablet PO SCH ×2 (12:36→22:09)
[2018-08-12] MEDS: Pantoprazole Sodium 20 MG DR Tablet PO SCH ×2 (12:36→22:09)
--- NOTE | 2018-08-12 12:54 | MB ---
cc: Gabriele Soliman MD DATE: 08/12/2018 REQUESTING PHYSICIAN: Dr. Graves. REASON: Gram-negative bacteremia. HISTORY OF PRESENT ILLNESS: This is an 82-year-old white male who presented to the emergency department on 08/11/2018 from a shelter facility. The patient presented with abdominal pain and fever. The patient had a Castelan catheter in place and was noted to have problems with obstructive uropathy. The Castelan catheter was investigated and subsequently the patient had a new Castelan catheter placed and had 1400 mL of dark yellow urine output. Urinalysis revealed many white blood cell clumps and a urine culture was taken and also blood cultures were taken as well. The urine culture is pending. The blood culture has gram-negative rods in 1 of 4 bottles. The patient had temperature of 100.5 degrees yesterday evening in the emergency department and white count was slightly elevated at 11.6. The patient is awake, although he appears fatigued. He was recently treated at [facility] and was noted to have urinary tract infection due to E. coli. Blood cultures at that time were negative. He was discharged on oral Bactrim. The patient has been followed by urology and he had undergone cystoscopy with removal of bilateral ureteral stents on 07/26/2018. The patient was also noted to have large clots in the bladder and right iliopsoas hematoma prior to removal of the stents. This consultation was requested for bacteremia. The patient reportedly fell about 3 weeks ago and was not found to have any fracture, but has swelling of the right leg and right knee since that time. This was reported by his son. PAST MEDICAL HISTORY: Gastroesophageal reflux, hypertension, hypothyroidism, benign prostatic hypertrophy, peripheral neuropathy, history of DVT, chronic warfarin treatment, degenerative disk disease, right rotator cuff tear. ALLERGIES: NO KNOWN DRUG ALLERGIES. MEDICATIONS: 1. Piperacillin/tazobactam 2. Synthroid. 3. Protonix. 4. Vancomycin. 5. Hytrin. SOCIAL HISTORY: The patient is . He is a former smoker. No alcohol use. No illicit drugs. FAMILY HISTORY: Noncontributory. REVIEW OF SYSTEMS: All systems have been reviewed and are negative except for that mentioned in the history of present illness. PHYSICAL EXAMINATION: GENERAL: He is well-developed male who is in no acute distress. He is awake and oriented. He appears somewhat listless. VITAL SIGNS: Temperature 98.0, BP 105/53, respirations 26, heart rate 104. HEENT: Head is atraumatic. Extraocular movements are grossly intact. Pupils reactive to light without icterus. Oropharynx, dry mucosa. No visible lesions. NECK: Supple. No adenopathy. LUNGS: Decreased clear breath sounds. HEART: Regular S1 and S2, without audible murmurs, rubs, or gallops. Heart sounds are distant. ABDOMEN: Bowel sounds present, soft, no tenderness appreciated. RECTAL: Not performed. EXTREMITIES: There is swelling of the left knee and left proximal thigh. No erythema. Extremities have no clubbing, cyanosis or edema. SKIN: No rash. NEUROLOGIC: No gross focal findings. PSYCHIATRIC: The patient is calm and cooperative. LABORATORY DATA: WBC 9.9, platelets 196, hemoglobin 8.0, neutrophils 82%. Creatinine 1.61, BUN 52, estimated GFR 41. Sodium 139. Estimated GFR on 08/11/2018 was 21. AST 128, AST 117, alkaline phosphatase 155. Chest x-ray showed no acute abnormality. IMPRESSION: 1. Gram negative sepsis. Recent Escherichia coli urinary tract infection. 2. UTI. 3. Acute kidney disease. 4. Right iliopsoas hematoma. RECOMMENDATIONS: 1. Continue piperacillin/tazobactam. 2. Continue vancomycin. 3. Monitor blood cultures. 4. Monitor urine culture. 5. Monitor clinical response to antibiotic treatment. Thank you for this consultation. I will follow the patient's progress with you and will make further recommendations on followup if necessary. MD SEGUNDO Law/sv , 11:37 AM , 11:52 AM MECHE
--- NOTE | 2018-08-12 13:13 | US ---
EXAM DATE: 08/12/2018 12:00 AM EDT AGE/SEX: 82 years / Male INDICATIONS: Abnormal lab values. CLINICAL DATA: This is the patient's initial encounter. Patient reports that signs and symptoms have been present for 1 day and indicates a pain score of 3/10. MEDICAL/SURGICAL HISTORY: Gastroesophageal reflux disease. Hypertension. Hypothyroidism. BPH . Degenerative disc disease. Dugan's esophagus. Deep vein thrombosis. Osteoarthritis. Right bundle branch block. . Cataract surgery. Right rotator cuff surgery. COMPARISON: [facility], CT ABDOMEN & PELVIS W/O CONTRAST, 07/24/2018. . MEASUREMENTS: Liver:__ 15.5 cm. Common Bile Duct:___ 4mm. Right Kidney:___11.4 x 6.8 x 4.9 cm. Left Kidney:___12.5 x 7.3 x 5.8 cm. Spleen:___11.0 cm. FINDINGS: Liver: Normal echotexture without focal lesion or ductal dilatation. Portal Vein: Hepatopedal flow seen in portal vein. Common Duct: No intraluminal mass or stone visualized. Gallbladder: There is sludge within the gallbladder. No wall thickening or pericholecystic fluid is present. Sonographic Lopez sign is negative. Pancreas: The visualized portions are within normal limits Right Kidney: No hydronephrosis, stone, or mass. Renal echogenicity may be increased. There is a sim ple cyst in the lower pole measuring 2.8 cm. Left Kidney: No hydronephrosis, stone, or mass. There are multiple simple appearing cystic lesions i n the left kidney including a 4.5 cm lower pole cyst and additional small cysts in the midportion of the kidney and ureter in the renal sinus. Ascites: None Pleural Effusion: None Spleen: No focal lesion. Aorta: Not visualized. IVC: Not adequately visualized secondary to bowel gas. Other: None. CONCLUSION: 1. Gallbladder sludge. There are no findings to indicate acute gallbladder inflammation or obstructi on. 2. Bilateral benign-appearing simple renal cysts are identified. Electronically signed by: Star Huynh MD 08/12/2018 1:12 PM EDT
[2018-08-12] MEDS: Sod Chloride 0.9% Inj 1,000 ML IV.CONT SCH ×3 (15:58→23:58)
[2018-08-13] MEDS ORDERED: Vancomycin Inj 1,500 MG in Sodium Chlor 0.9% Inj 500 ML IV.SIG SCH (06:00)
[2018-08-13] MEDS: Piperacil/Tazo 2.25 GM Premix 50 ML IV.SIG SCH (06:17)
[2018-08-13] MEDS: Levothyroxine 125 MCG Tablet PO SCH (06:17)
[2018-08-13] MEDS: Sod Chloride 0.9% Inj 1,000 ML IV.CONT SCH (06:53)
[2018-08-13] MEDS: Senna/Docusate Sodium 8.6/50 MG Tablet PO SCH ×2 (08:17→22:02)
[2018-08-13] MEDS: Pantoprazole Sodium 20 MG DR Tablet PO SCH ×2 (08:17→22:02)
--- NOTE | 2018-08-13 10:40 | P.PNID ---
Subjective Remarks: Discussed with RN. Patient noted to be confused. Awake. no distress. Says he feels weak. Afebrile. Urine culture has e. coli. Blood culture has e. coli. This is an 82-year-old white male who presented to the emergency department on 08/11/2018 from a skilled nursing facility. The patient presented with abdominal pain and fever. The patient had a Castelan catheter in place and was noted to have problems with obstructive uropathy. The Castelan catheter was investigated and subsequently the patient had a new Castelan catheter placed and had 1400 mL of dark yellow urine output. He was recently treated at [facility] and was noted to have urinary tract infection due to E. coli. Blood cultures at that time were negative. He was discharged on oral Bactrim. The patient has been followed by urology and he had undergone cystoscopy with removal of bilateral ureteral stents on 07/26/2018. The patient was also noted to have large clots in the bladder and right iliopsoas hematoma prior to removal of the stents. This consultation was requested for bacteremia. Past Medical History: PAST MEDICAL HISTORY: Gastroesophageal reflux, hypertension, hypothyroidism, benign prostatic hypertrophy, peripheral neuropathy, history of DVT, chronic warfarin treatment, degenerative disk disease, right rotator cuff tear. Allergies/Adverse Reactions: Allergies No Known Allergies Allergy (Verified 08/11/18 16:10) Objective Vital Signs 08/12/18 12:00 08/12/18 14:00 08/12/18 16:00 Temperature 101.8 F H 98.1 F Pulse Rate 111 H 105 H 95 H Respiratory Rate 30 H 20 Blood Pressure 117/57 L 100/51 L Pulse Oximetry 96 98 08/12/18 18:00 08/12/18 20:00 08/12/18 20:08 Temperature 99.0 F Pulse Rate 99 H 97 H Respiratory Rate 21 Blood Pressure 123/58 L Pulse Oximetry 99 100 08/12/18 22:00 08/13/18 00:00 08/13/18 02:00 Temperature 99.0 F Pulse Rate 108 H 109 H 100 H Respiratory Rate 29 H Blood Pressure 120/58 L Pulse Oximetry 96 08/13/18 04:00 08/13/18 06:00 08/13/18 08:00 Temperature 99.0 F Pulse Rate 99 H 99 H 93 H Respiratory Rate 24 Blood Pressure 130/64 Pulse Oximetry 100 Intake & Output 09/29/18 09/30/18 09/30/18 18:59 06:59 18:59 Intake Total 1820 / 1820 2400 / 2400 Output Total 1150 / 1150 1350 / 1350 Balance 670 / 670 1050 / 1050 Weight 106.6 kg Intake: IV 1100 / 1100 2100 / 2100 NS Inj 1,000 ML @ 125 mls/hr IV 1000 / 1000 2000 / 2000 .CONT .Q8H [facility] Rx#:[id number] Zosyn 2.25 GM Premix 50 ML @ 100 / 100 100 / 100 100 mls/hr IV.SIG Q8H [facility] Rx#: [id number] Oral 720 / 720 300 / 300 Output: Stool 0 / 0 Urine/Stool Mix 0 / 0 Urine Amount (Catheter) 1150 / 1150 1350 / 1350 Indwelling Urethral Catheter 1150 / 1150 1350 / 1350 Other: Date of Last Bowel Movement 08/10/18 08/10/18 08/10/18 # Bowel Movements 0 # Incontinent Bowel Movements 0 08/11/18 16:35 Clean Catch Urine Urine Culture - Final Escherichia coli Multidrug Resistant 08/11/18 16:35 Blood - Peripheral Aerobic Blood Culture - Preliminary No growth in 1 day 08/11/18 16:35 Blood - Peripheral Anaerobic Blood Culture - Preliminary Escherichia coli 08/11/18 16:25 Blood - Peripheral Aerobic Blood Culture - Preliminary No growth in 1 day 08/11/18 16:25 Blood - Peripheral Anaerobic Blood Culture - Preliminary No growth in 1 day Lab - Hematology Results 08/11/18 08/12/18 16:35 04:42 WBC 11.6 H 9.9 RBC 3.30 L 2.52 L Hgb 10.5 L 8.0 L D Hct 30.8 L 23.4 L MCV 93.4 93.1 MCH 31.7 31.7 MCHC 33.9 34.1 RDW 15.4 15.6 Plt Count 231 196 MPV 8.1 7.8 Neut % (Auto) 76.8 H 82.6 H Lymph % (Auto) 9.5 7.6 L [place] % (Auto) 13.1 H 9.0 H Eos % (Auto) 0.4 0.7 Baso % (Auto) 0.2 0.1 Neut # (Auto) 8.9 H 8.2 H Lymph # (Auto) 1.1 0.8 L [place] # (Auto) 1.5 H 0.9 Eos # (Auto) 0.0 0.1 Baso # (Auto) 0.0 0.0 WBC Differential . . Differential Comment Auto diff final Auto diff final Lab - Chemistry Results 08/11/18 08/11/18 08/11/18 16:35 16:35 19:40 Sodium 133 L Potassium 4.9 Chloride 97 L Carbon Dioxide 22.8 Anion Gap 13 BUN 63 H Creatinine 2.91 H Estimated GFR 21 L Random Glucose 130 H Lactic Acid 2.1 H 1.4 Calcium 8.2 L Prot Corrected Calcium Magnesium 2.3 Total Bilirubin 1.1 H AST 128 H ALT 117 H Alkaline Phosphatase 155 H Total Protein 6.7 Albumin 2.3 L 08/12/18 08/12/18 08/13/18 04:42 04:42 04:04 Sodium 139 Potassium 4.3 Chloride 109 H D Carbon Dioxide 19.3 L Anion Gap 11 BUN 52 H Creatinine 1.61 H 0.92 Estimated GFR 41 L 78 L Random Glucose 98 Lactic Acid 0.7 Calcium 7.0 L* D Prot Corrected Calcium 7.9 L Magnesium Total Bilirubin AST ALT Alkaline Phosphatase Total Protein 5.3 L D Albumin Imaging: ITS Impressions Chest X-Ray 08/11/18 16:31 CONCLUSION: Underinflated examination with atelectasis at the lung bases. No acute cardiopulmonary abnormality is identified. Abdomen Ultrasound 08/12/18 00:00 CONCLUSION: 1. Gallbladder sludge. There are no findings to indicate acute gallbladder inflammation or obstruction. 2. Bilateral benign-appearing simple renal cysts are identified. Physical Exam: PHYSICAL EXAMINATION: GENERAL: No acute distress. He is awake and oriented. HEENT: Head is atraumatic. Extraocular movements are grossly intact. Pupils reactive to light without icterus. Oropharynx, dry mucosa. No visible lesions. NECK: Supple. No adenopathy. LUNGS: Decreased breath sounds. HEART: Regular S1 and S2, without audible murmurs, rubs, or gallops. Heart sounds are distant. ABDOMEN: Bowel sounds present, soft, no tenderness appreciated. EXTREMITIES: There is swelling of the left knee and left proximal thigh. No erythema. Extremities have no clubbing, cyanosis or edema. SKIN: No rash. NEUROLOGIC: Non focal. PSYCHIATRIC: Calm and cooperative. Assessment and Plan - Plan IMPRESSION: 1. Gram negative sepsis. E. coli. 2. UTI - E coli. 3. Acute kidney disease. 4. Right iliopsoas hematoma. RECOMMENDATIONS: 1. Stop piperacillin/tazobactam. 2. Stop vancomycin. 3. Add Cefepime. 4. Monitor blood cultures. 5. Monitor clinical response to antibiotic treatment.
--- NOTE | 2018-08-13 15:17 | P.PNIM ---
Subjective Interval history: Pt has NO new medical complaints. Poor PO intake. Physical Exam Vital signs: 08/13/18 12:30 Temperature Pulse Rate 92 H Respiratory Rate 25 H Blood Pressure 137/67 Pulse Oximetry 97 Narrative: GENERAL: This is a well-nourished, well-developed patient, in no apparent distress. CARDIOVASCULAR: Regular rate and rhythm without murmurs, gallops, or rubs. RESPIRATORY: Clear to auscultation. Breath sounds equal bilaterally. No wheezes , rales, or rhonchi. GASTROINTESTINAL: Abdomen soft, non-tender, nondistended. Normal active bowel sounds MUSCULOSKELETAL: 2+ LE edema NEURO: Alert & Oriented x4 to person, place, time, situation. Moves all ext x4 - Urinary Catheter Management Indwelling Urethral Catheter Cath placed during this visit: yes Reason for continuing: Other continuation reason Insertion date: 08/11/18 Insertion time: 16:35 Results - Labs CBC & Chem 7: 08/15/18 03:26 08/17/18 06:10 08/11/18 16:35 Blood - Peripheral Aerobic Blood Culture - Preliminary No growth in 2 days 08/11/18 16:35 Blood - Peripheral Anaerobic Blood Culture - Preliminary Escherichia coli 08/11/18 16:25 Blood - Peripheral Aerobic Blood Culture - Preliminary No growth in 2 days 08/11/18 16:25 Blood - Peripheral Anaerobic Blood Culture - Preliminary No growth in 2 days 08/11/18 16:35 Clean Catch Urine Urine Culture - Final Escherichia coli Multidrug Resistant - Imaging Chest X-Ray 08/11/18 16:31 Underinflated examination with atelectasis at the lung bases. No acute cardiopulmonary abnormality is identified. Abdomen Ultrasound 08/12/18 00:00 1. Gallbladder sludge. There are no findings to indicate acute gallbladder inflammation or obstruction. 2. Bilateral benign-appearing simple renal cysts are identified. Assessment and Plan - Assessment (1) UTI (urinary tract infection) Code(s): N39.0 - Urinary tract infection, site not specified Status: Acute Plan: This is a 82-year-old male with past medical history which includes right bundle branch block since 2049, osteoporosis, gastroesophageal reflux disease, hypertension, hypothyroidism, BPH, degenerative disc disease, peripheral neuropathy and 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 Patient originally presented to [facility] 07/22/2018 with confusion/altered mental status dx with urinary tract infection which urine culture revealed pansensitive E. coli. While patient was in the hospital he became confused and pulled out his Chiang catheter with gross hematuria. CT abdomen/pelvis revealed large clot in bladder and the right iliopsoas hematoma. Dr. Laughlin was following and patient underwent cystoscopy with removal of bilateral ureteral stents 07/26. Patient's status improved and he was DC'd to SNF on 07/29/18 for strengthening. Patient was sent to the ER due to fever. The patient notes increasing lower abdominal distention and burning when he urinates via catheter for the last several days. He also notes subjective fevers at the [place] [facility]. He does complain of lower moderate abdominal pain that is located over the suprapubic region and radiates to the back. While in the ER patient had a bedside ultrasound was performed with a curvilinear probe which reveals a distended bladder with fluid and sediment on the inferior aspect. The bladder was distended above the umbilicus on ultrasound. Chiang catheter was exchanged then the patient had 1400 cc of dark yellow urine output of the new chiang. - Pt became hypotensive with SBP 73/42 and sepsis - Pt was transferred to the ICU & followed by Critical Care Medicine for 2 days - Pt's blood pressure improved with IV hydration - blood cultures (08/11) --> E. Coli - Urine Cx (08/11) --> E. Coli - comgmt with Infectious Disease - Rocephin 08/11 - Zosyn (08/11 - 08/13) - Vancomycin (08/11 - 08/13) - Cefepime (08/13 - present) - LFTs with mild elevation 08/11 - Abdominal US (08/11) --> no acute abnormalities - Pt appears much more frail from prior admission - Code status discussed at length with pt//son (08/13) - Pt did NOT appear to have good insight regarding code status. Continue Full code for now - request Palliative consult for clarification of goals - Pt has poor PO intake. Encourage PO intake. - repeat labs in AM UTI - see above Recent Iliopsoas hematoma patient he had a fall prior to previous hospitalization 07/22/18 and landed on the corner of a trunk, healing ecchymosis R flank area Abdomen/Pelvis CT 07/24/18 revealed: 1. Bladder filled with clot partially decompressed by Chiang. Etiology for hematuria is not identified in this anticoagulated patient. 2. Smaller moderate right iliopsoas hematoma Coumadin on hold HTN Hold home metoprolol 100 mg PO daily and enalapril 20 mg PO BID - hytrin Hypothyroidism Continue home Synthroid BPH - hytrin
[2018-08-14] MEDS: Levothyroxine 125 MCG Tablet PO SCH (05:27)
[2018-08-14 06:54] LABS: Baso % (Auto) 0.4 % (0.0-2.0); Eos # (Auto) 0.2 th/mm3 (0.0-0.4); Hematocrit 23.8 % (39.0-51.0); Lymph % (Auto) 17.3 % (9.0-44.0); Mean Corpuscular HGB Conc 33.8 % (32.0-36.0); Mean Corpuscular Hemoglobin 31.2 pg (27.0-34.0); Mean Corpuscular Volume 92.2 fL (80.0-100.0); Mean Platelet Volume 7.8 fL (7.0-11.0); Mono # (Auto) 0.7 th/mm3 (0.0-0.9); Mono % (Auto) 11.6 % (0.0-8.0); Neut # (Auto) 3.9 th/mm3 (1.8-7.7); Neut % (Auto) 67.7 % (16.0-70.0); Platelet Count 242 th/mm3 (150-450); Red Blood Count 2.58 mil/mm3 (4.50-5.90); Red Cell Distribution Width 15.5 % (11.6-17.2); White Blood Count 5.7 th/mm3 (4.0-11.0)
--- NOTE | 2018-08-14 09:25 | P.PNIM ---
Subjective Interval history: pt says he feels better today Physical Exam Vital signs: Vital Signs 08/13/18 09:30 08/13/18 09:45 08/13/18 10:00 Temperature Pulse Rate 91 H 93 H 91 H Respiratory Rate 33 H 28 H 24 Blood Pressure 134/71 131/60 131/61 Pulse Oximetry 97 98 98 08/13/18 10:15 08/13/18 10:30 08/13/18 10:45 Temperature Pulse Rate 90 95 H 96 H Respiratory Rate 25 H 23 33 H Blood Pressure 129/63 127/61 127/65 Pulse Oximetry 98 97 96 08/13/18 11:00 08/13/18 11:15 08/13/18 11:30 Temperature Pulse Rate 91 H 90 91 H Respiratory Rate 22 23 24 Blood Pressure 123/60 131/65 133/66 Pulse Oximetry 96 96 97 08/13/18 11:45 08/13/18 12:00 08/13/18 12:15 Temperature 98.4 F Pulse Rate 89 93 H 92 H Respiratory Rate 24 23 23 Blood Pressure 129/64 137/71 135/65 Pulse Oximetry 97 98 97 08/13/18 12:30 08/13/18 14:00 08/13/18 16:00 Temperature 99.1 F Pulse Rate 92 H 88 87 Respiratory Rate 25 H 22 Blood Pressure 137/67 131/63 Pulse Oximetry 97 97 08/13/18 18:00 08/13/18 20:00 08/13/18 20:45 Temperature 99.0 F Pulse Rate 93 H 103 H Respiratory Rate 42 H Blood Pressure 126/79 Pulse Oximetry 96 98 08/13/18 22:00 08/14/18 00:00 08/14/18 02:00 Temperature 98.3 F Pulse Rate 97 H 94 H 96 H Respiratory Rate 28 H Blood Pressure 126/66 Pulse Oximetry 98 08/14/18 04:00 08/14/18 06:00 Temperature 98.2 F Pulse Rate 92 H 95 H Respiratory Rate 23 Blood Pressure 139/72 Pulse Oximetry 97 Intake & Output 08/13/18 08/14/18 08/14/18 18:59 06:59 18:59 Intake Total 1635 / 1635 550 / 550 Output Total 1850 / 1850 1999 Balance -215 / -215 -1450 / -1450 Weight 106.6 kg Intake: IV 615 / 615 200 / 200 Maxipime Inj 1,000 MG In NS Inj 100 / 100 200 / 200 100 ML @ 200 mls/hr IV.SIG Q8H [facility] Rx#:[id number] Vancomycin Inj 1,500 MG In NS 515 / 515 Inj 500 ML @ 250 mls/hr IV.SIG Q24H [facility] Rx#:[id number] Oral 780 / 780 350 / 350 Oral Supplement 240 / 240 Output: Stool 0 / 0 Urine/Stool Mix 0 / 0 Urine Amount (Catheter) 1849 Indwelling Urethral Catheter 1849 Other: Date of Last Bowel Movement 08/13/18 08/14/18 # Bowel Movements 1 1 # Incontinent Bowel Movements 0 nad heart reg lung cta abd s/nt ext no edema chiang - Urinary Catheter Management Indwelling Urethral Catheter Cath placed during this visit: yes Reason for continuing: Other continuation reason Insertion date: 08/11/18 Insertion time: 16:35 Results - Labs CBC & Chem 7: 08/14/18 05:41 08/13/18 04:04 Laboratory Results - last 24 hr 08/14/18 05:41 WBC 5.7 RBC 2.58 L Hgb 8.0 L Hct 23.8 L MCV 92.2 MCH 31.2 MCHC 33.8 RDW 15.5 Plt Count 242 MPV 7.8 Neut % (Auto) 67.7 Lymph % (Auto) 17.3 [place] % (Auto) 11.6 H Eos % (Auto) 3.0 Baso % (Auto) 0.4 Neut # (Auto) 3.9 Lymph # (Auto) 1.0 [place] # (Auto) 0.7 Eos # (Auto) 0.2 Baso # (Auto) 0.0 WBC Differential . Differential Comment Auto diff final Microbiology 08/11/18 16:35 Blood - Peripheral Aerobic Blood Culture - Preliminary No growth in 2 days 08/11/18 16:35 Blood - Peripheral Anaerobic Blood Culture - Preliminary Escherichia coli 08/11/18 16:25 Blood - Peripheral Aerobic Blood Culture - Preliminary No growth in 2 days 08/11/18 16:25 Blood - Peripheral Anaerobic Blood Culture - Preliminary No growth in 2 days 08/11/18 16:35 Clean Catch Urine Urine Culture - Final Escherichia coli Multidrug Resistant Assessment and Plan - Assessment (1) UTI (urinary tract infection) Code(s): N39.0 - Status: Acute Plan: This is a 82-year-old male with past medical history which includes right bundle branch block since 2049, osteoporosis, gastroesophageal reflux disease, hypertension, hypothyroidism, BPH, degenerative disc disease, peripheral neuropathy and 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 Patient originally presented to [facility] 07/22/2018 with confusion/altered mental status dx with urinary tract infection which urine culture revealed pansensitive E. coli. While patient was in the hospital he became confused and pulled out his Chiang catheter with gross hematuria. CT abdomen/pelvis revealed large clot in bladder and the right iliopsoas hematoma. Dr. Laughlin was following and patient underwent cystoscopy with removal of bilateral ureteral stents 07/26. Patient's status improved and he was DC'd to SNF on 07/29/18 for strengthening. Patient was sent to the ER due to fever. The patient notes increasing lower abdominal distention and burning when he urinates via catheter for the last several days. He also notes subjective fevers at the intermediate. He does complain of lower moderate abdominal pain that is located over the suprapubic region and radiates to the back. While in the ER patient had a bedside ultrasound was performed with a curvilinear probe which reveals a distended bladder with fluid and sediment on the inferior aspect. The bladder was distended above the umbilicus on ultrasound. Chiang catheter was exchanged then the patient had 1400 cc of dark yellow urine output of the new chiang. - Pt became hypotensive with SBP 73/42 and sepsis - Pt was transferred to the ICU & followed by Critical Care Medicine for 2 days - Pt's blood pressure improved with IV hydration - blood cultures (08/11) --> E. Coli - Urine Cx (08/11) --> E. Coli - Rocephin 08/11 - Zosyn (08/11 - 08/13) - Vancomycin (08/11 - 08/13) - Cefepime (08/13 - present) -ID following and managing abx - LFTs with mild elevation 08/11- Abdominal US (08/11) --> no acute abnormalities - Code status discussed at length per Dr Alexis with pt//son (08/13) - Pt did NOT appear to have good insight regarding code status. Continue Full code for now - requested Palliative consult for clarification of goals move out of ICU today. increase activity. PT consult. UTI - see above CRYSTAL due to sepsis/retention renal function continues to improve daily. Recent Iliopsoas hematoma patient he had a fall prior to previous hospitalization 07/22/18 and landed on the corner of a trunk, healing ecchymosis R flank area Abdomen/Pelvis CT 07/24/18 revealed: 1. Bladder filled with clot partially decompressed by Chiang. Etiology for hematuria is not identified in this anticoagulated patient. 2. Smaller moderate right iliopsoas hematoma Coumadin on hold HTN Hold home metoprolol 100 mg PO daily and enalapril 20 mg PO BID - hytrin Hypothyroidism Continue home Synthroid BPH - hytrin
[2018-08-14 10:00] LABS: Alanine Aminotransferase 198 U/L (12-78); Alkaline Phosphatase 182 U/L (45-117); Anion Gap 10 meq/L (5-15); Aspartate Aminotransferase 233 U/L (15-37); Blood Urea Nitrogen 21 mg/dL (7-18); Calcium 8.2 mg/dL (8.5-10.1); Carbon Dioxide 23.5 meq/L (21.0-32.0); Chloride 108 meq/L (98-107); Glomerular Filtration Rate Greater Than 89 mL/min (>89); Glucose,Random 92 mg/dL (74-106); Magnesium 1.7 mg/dL (1.5-2.5); Potassium 3.7 meq/L (3.5-5.1); Sodium 141 meq/L (136-145)
[2018-08-14] MEDS: Senna/Docusate Sodium 8.6/50 MG Tablet PO SCH ×2 (10:22→21:58)
[2018-08-14] MEDS: Pantoprazole Sodium 20 MG DR Tablet PO SCH ×2 (10:22→21:58)
--- NOTE | 2018-08-14 11:51 | P.CONPAL ---
Consult Service: Palliative Care Requesting Physician: Omi Alexis Reason for Consult: a. To assist with evaluation and management of symptoms including: Delirium, pain b. To assist medical decision maker(s) with: better understanding of current medical conditions; weighing benefits/burdens of medical treatment options; making medical treatment decisions. Primary Care Provider: Oliver Everett History of Present Illness History of Present Illness: This 82-year-old male, with a past history of BPH, neuropathy, chronic knee pain , and anemia, was admitted on 07/22/18 after presenting with weakness and confusion and was found to have E. coli sepsis. He was treated and was sent to [facility] on 07/29/18. The patient's son reports that with therapy he was able to get up and take a couple steps with a walker but he had remained pretty weak. He has significant BPH and had had a Castelan catheter. On 08/09 it seemed as though he was weaker, and he was then brought back to the emergency department on 08/11 because of abdominal pain and confusion. His pain was lower abdominal, constant, and did not radiate. In the emergency department, findings included: * Weak, confused * Temp 100.5, pulse 94, respirations 19, blood pressure 89/55, oxygen saturation 95% * White count 11.6, hemoglobin 10.5 * Sodium 133, creatinine 2.91, GFR 21, albumin 2.3 * AST 128, ALT 117 * Urinalysis consistent with infection * Chest x-ray with some atelectasis at the bases In the emergency department, his Castelan catheter was changed and produced an immediate 1400 cc. A saline bolus was provided, and his blood pressure improved. Following day, abdominal ultrasound indicated some sludge in the gallbladder but no obvious changes of inflammation. A blood culture grew E. coli, and the urine culture grew resistant E. coli. On 08/13/18, the patient was noted to have poor p.o. intake, and he remained fairly weak, but the confusion was improved. By 08/14/18, the white count was normalized at 5.7, his hemoglobin was down to 8, and the creatinine and GFR were normal (0.75 and greater than 89 respectively). However, the transaminases were higher, with AST 233, ALT 198, alkaline phosphatase 182. In addition, the albumin was down to 2.0. The patient does have a neuropathy history and has had chronic knee pain at home , for which she had been taking hydrocodone on a PRN basis. He has not been requiring pain medicine here, and denies any pain at this time. Palliative Care was consulted to assist with symptom management, and to enter into discussions with the patient and family regarding his illnesses, the prognosis, and the benefits and burdens of the various treatment choices. Function/Cognitive Trajectory: Prior to his hospitalization 3 weeks ago, the patient had been ambulating independently at home until the couple days prior to that hospitalization. He is reported to have not been confused at home. Review of Systems Constitutional: Reports body ache(s), Reports chills (At the time of admission) , Reports fatigue, Reports weakness Eyes: Denies change in vision, Denies irritation Ears, Nose, Mouth, and Throat: Denies bleeding gums, Denies headache(s), Denies sore throat Cardiovascular: Reports shortness of breath with activity (Since his first admission 3 weeks ago), Denies chest pain, Denies fainting, Denies irregular heart rhythm Respiratory: Denies chest congestion, Denies cough Gastrointestinal: Reports abdominal pain (Resolved his first day here), Denies constipation, Denies difficulty swallowing, Denies incontinent of stools, Denies loose stools, Denies nausea, Denies vomiting blood Genitourinary: Reports urinary hesitancy, Denies blood in urine Musculoskeletal: Denies back pain, Denies joint swelling Skin/Breast: Denies bleeding lesions, Denies rash Neurologic: Reports confusion (Resolved after a couple days in the hospital here ), Reports numbness (Neuropathy in his legs), Denies convulsions Psychiatric: Reports confusion (Now resolved), Denies anxiety, Denies panic attacks Endocrine: Denies cold intolerance, Denies flushing Hematologic/Lymphatic: Denies easy bruising Allergic/Immunologic: Denies hives, Denies throat swelling PMFSH - History History Provided By: Patient, Family Member (Patient's son) - Medical History Medical History: Medical History (Last Updated 08/14/18 @ 11:50 by Yvette Day MD) Anemia (Acute) Debility (Acute) Malnutrition (Acute) BPH (benign prostatic hyperplasia) Degenerative disc disease Gastroesophageal reflux disease History of Dugan's esophagus History of DVT (deep vein thrombosis) Hypertension Hypothyroidism Osteoarthritis Right bundle branch block - Surgical History Surgical History: Surgical History (Last Updated 08/14/18 @ 11:50 by Yvette Day MD) Cataract, right eye Right rotator cuff tear - Family History Family History: Family History (Last Updated 08/14/18 @ 12:03 by Yvette Day MD) Mother Old age Father [place] [employer] Son AIDS (acquired immune deficiency syndrome) Other Family history non-contributory - Social History I have reviewed the patient's Social History: Yes - Tobacco History Second Hand Smoke Exposure: No Tobacco Use In Past 30 Days: No Smoking Status: Former smoker Tobacco Type: Cigarettes - Alcohol History How Often Do You Have a Drink Containing Alcohol: Never - Substance Use History Substance History: No History of Abuse - Travel History History of Recent Travel: No Recent Travel in the [place] Within the Last 8 Weeks: No Recent Travel Out of the Country Within the Last 8 Weeks: No - Immunization History Tetanus Immunization: <5 Years Hx Influenza Vaccine This Season: No Medications and Allergies Active Medications: Active Medications Acetaminophen (Tylenol) 650 mg PO Q4H PRN PRN Reason: Temp > 100.4 Last Admin: 08/12/18 12:36 Dose: 650 mg Al Hydroxide/Mg Hydroxide (Milk Of Magnsanjeev Liq) 30 ml PO Q12H PRN PRN Reason: Mild Constipation Cefepime HCl 1,000 mg/ Sodium (Chloride) 100 mls @ 200 mls/hr IV.SIG Q8H [facility] Last Admin: 08/14/18 10:22 Dose: 200 mls/hr Levothyroxine Sodium (Synthroid) 125 mcg PO DAILY@0600 [facility] Last Admin: 08/14/18 05:27 Dose: 125 mcg Miscellaneous Information ([facility] Ordered Lab Info) 0 each OTHER ONCE ONE Stop: 08/15/18 05:46 Ondansetron HCl (Zofran Inj) 4 mg IV.PUSH Q6H PRN PRN Reason: NAUSEA OR VOMITING Last Admin: 08/12/18 13:37 Dose: 4 mg Pantoprazole Sodium (Protonix) 20 mg PO BID [facility] Last Admin: 08/14/18 10:22 Dose: 20 mg Senna/Docusate Sodium (Elizabeth-Colace) 1 tab PO BID [facility] Last Admin: 08/14/18 10:22 Dose: Not Given Terazosin HCl (Hytrin) 5 mg PO BID [facility] Last Admin: 08/14/18 10:22 Dose: 5 mg Terbutaline Sulfate (Brethine Inj) 1 mg SQ UNSCH PRN PRN Reason: For Extravasation Tramadol HCl (Ultram) 50 mg PO Q6H PRN PRN Reason: PAIN SCALE 1 TO 10 Last Admin: 08/14/18 03:36 Dose: 50 mg Allergies Allergy/AdvReac Type Severity Reaction Status Date / Time No Known Allergies Allergy Verified 08/11/18 16:10 Home Medications Medication Instructions Recorded Confirmed Type gabapentin 1,200 mg PO HS 07/22/18 08/11/18 History levothyroxine 125 mcg PO DAILY 07/22/18 08/11/18 History metoprolol tartrate 100 mg PO BID 07/22/18 08/11/18 History omeprazole 20 mg PO BID 07/22/18 08/11/18 History terazosin 5 mg PO BID 07/22/18 08/11/18 History vitamins A,C,K-lcui-wbglcg 2 tab PO BID 07/22/18 08/11/18 History [PreserVision AREDS] Advance Directives Living Will: No Healthcare Surrogate: No Power of Finish Photographer: No Family/friends goals: The patient's son James reports that he and his brother and sister recognize the patient's significant decline in the past couple months, and are inclined to initiate DNR status; however, he notes that their mother (patient's ) has always wanted to continue aggressive care. The 3 children and the patient's mother are meeting this evening to further discuss the future and their goals. Ethical and Legal Issues: There are no ethical issues that would impact his care were decision-making at this time. The patient now has capacity for decision-making; however, he specifically defers decision making with respect to his medical care to his ("she is much smarter than me"). If he loses capacity for decision-making, his is the proxy at this time. Physical Exam Vital Signs: Vital Signs - 24 hr 08/13/18 11:30 08/13/18 11:45 08/13/18 12:00 Temperature 98.4 F Pulse Rate 91 H 89 93 H Respiratory Rate 24 24 23 Blood Pressure 133/66 129/64 137/71 Pulse Oximetry 97 97 98 08/13/18 12:15 08/13/18 12:30 08/13/18 14:00 Temperature Pulse Rate 92 H 92 H 88 Respiratory Rate 23 25 H Blood Pressure 135/65 137/67 Pulse Oximetry 97 97 08/13/18 16:00 08/13/18 18:00 08/13/18 20:00 Temperature 99.1 F 99.0 F Pulse Rate 87 93 H 103 H Respiratory Rate 22 42 H Blood Pressure 131/63 126/79 Pulse Oximetry 97 96 08/13/18 20:45 08/13/18 22:00 08/14/18 00:00 Temperature 98.3 F Pulse Rate 97 H 94 H Respiratory Rate 28 H Blood Pressure 126/66 Pulse Oximetry 98 98 08/14/18 02:00 08/14/18 04:00 08/14/18 06:00 Temperature 98.2 F Pulse Rate 96 H 92 H 95 H Respiratory Rate 23 Blood Pressure 139/72 Pulse Oximetry 97 I&O: Intake & Output 08/12/18 08/13/18 08/14/18 08/15/18 06:59 06:59 06:59 06:59 Intake Total 3920 / 3920 4220 / 4220 2185 / 2185 Output Total 1999 / 1999 2500 / 2500 3850 / 3850 Balance 1920 / 1920 1720 / 1720 -1665 / -1665 Weight 73.936 kg 106.6 kg 106.6 kg Physical Exam: CONSTITUTIONAL/GENERAL: This is an elderly, weak patient, in no apparent distress. TUBES/LINES/DRAINS: SKIN: No jaundice, rashes, or lesions. Ecchymoses on upper extremities. No wounds seen anteriorly. Skin temperature appropriate. Not diaphoretic. HEAD: Atraumatic. Normocephalic. EYES: Pupils equal and round and reactive. Extraocular motions intact. No scleral icterus. No injection or drainage. Fundi not examined. ENT: Hearing moderately diminished. Nose without bleeding or purulent drainage. Throat without visible erythema, exudates, masses, or lesions. NECK: Trachea midline. Supple, nontender. No palpable thyroid enlargement or nodularity. CARDIOVASCULAR: Regular rate and rhythm without murmurs, gallops, or rubs. No JVD. Peripheral pulses symmetric. RESPIRATORY/CHEST: Symmetric, unlabored respirations. Clear to auscultation. Breath sounds equal bilaterally. No wheezes, rales, or rhonchi. GASTROINTESTINAL: Abdomen soft, non-tender, nondistended. No hepato-splenomegaly , or palpable masses. No guarding. Bowel sounds present. GENITOURINARY: Without palpable bladder distension. Castelan catheter in place. MUSCULOSKELETAL: Extremities without clubbing, cyanosis, or edema. No joint tenderness or effusion noted. No calf tenderness. No mottling or clubbing. LYMPHATICS: No palpable cervical or supraclavicular adenopathy. NEUROLOGICAL: Awake and alert. Motor and sensory grossly within normal limits. Follows commands. Cognitively sharp. Moves all extremities. PSYCHIATRIC: No obvious anxiety/depression. No apparent hallucinations or other psychotic thought process. Diagnostic Tests Laboratory: Laboratory Results - last 72 hr 08/11/18 08/11/18 08/11/18 16:35 16:35 16:35 WBC 11.6 H RBC 3.30 L Hgb 10.5 L Hct 30.8 L MCV 93.4 MCH 31.7 MCHC 33.9 RDW 15.4 Plt Count 231 MPV 8.1 Neut % (Auto) 76.8 H Lymph % (Auto) 9.5 Dickens % (Auto) 13.1 H Eos % (Auto) 0.4 Baso % (Auto) 0.2 Neut # (Auto) 8.9 H Lymph # (Auto) 1.1 Dickens # (Auto) 1.5 H Eos # (Auto) 0.0 Baso # (Auto) 0.0 WBC Differential . Differential Comment Auto diff final Sodium 133 L Potassium 4.9 Chloride 97 L Carbon Dioxide 22.8 Anion Gap 13 BUN 63 H Creatinine 2.91 H Estimated GFR 21 L Random Glucose 130 H Lactic Acid 2.1 H Calcium 8.2 L Prot Corrected Calcium Magnesium 2.3 Total Bilirubin 1.1 H AST 128 H ALT 117 H Alkaline Phosphatase 155 H Total Protein 6.7 Albumin 2.3 L Urine Color Urine Clarity Urine pH Ur Specific Aromas Urine Protein Urine Glucose (UA) Urine Ketones Urine Occult Blood Urine Nitrate Urine Bilirubin Urine Urobilinogen Ur Leukocyte Esterase Urine RBC Urine WBC Urine WBC Clumps Urine Bacteria Micro UA Comment Ur Microscopic Review Urine Culture Comments Nasal Screen MRSA (PCR) 08/11/18 08/11/18 08/11/18 16:35 19:40 21:15 WBC RBC Hgb Hct MCV MCH MCHC RDW Plt Count MPV Neut % (Auto) Lymph % (Auto) Dickens % (Auto) Eos % (Auto) Baso % (Auto) Neut # (Auto) Lymph # (Auto) Dickens # (Auto) Eos # (Auto) Baso # (Auto) WBC Differential Differential Comment Sodium Potassium Chloride Carbon Dioxide Anion Gap BUN Creatinine Estimated GFR Random Glucose Lactic Acid 1.4 Calcium Prot Corrected Calcium Magnesium Total Bilirubin AST ALT Alkaline Phosphatase Total Protein Albumin Urine Color Red Urine Clarity Cloudy H Urine pH 6.0 Ur Specific Aromas 1.008 Urine Protein 100 H Urine Glucose (UA) Negative Urine Ketones Negative Urine Occult Blood Large H Urine Nitrate Negative Urine Bilirubin Negative Urine Urobilinogen Less than 2 Ur Leukocyte Esterase Large H Urine RBC Urine WBC Urine WBC Clumps Many H Urine Bacteria Moderate H Micro UA Comment Cath-culture ind Ur Microscopic Review Not Reportable Urine Culture Comments Cath-cult indicated Nasal Screen MRSA (PCR) Not detected 08/12/18 08/12/18 08/12/18 04:42 04:42 04:42 WBC 9.9 RBC 2.52 L Hgb 8.0 L D Hct 23.4 L MCV 93.1 MCH 31.7 MCHC 34.1 RDW 15.6 Plt Count 196 MPV 7.8 Neut % (Auto) 82.6 H Lymph % (Auto) 7.6 L Dickens % (Auto) 9.0 H Eos % (Auto) 0.7 Baso % (Auto) 0.1 Neut # (Auto) 8.2 H Lymph # (Auto) 0.8 L Dickens # (Auto) 0.9 Eos # (Auto) 0.1 Baso # (Auto) 0.0 WBC Differential . Differential Comment Auto diff final Sodium 139 Potassium 4.3 Chloride 109 H D Carbon Dioxide 19.3 L Anion Gap 11 BUN 52 H Creatinine 1.61 H Estimated GFR 41 L Random Glucose 98 Lactic Acid 0.7 Calcium 7.0 L* D Prot Corrected Calcium 7.9 L Magnesium Total Bilirubin AST ALT Alkaline Phosphatase Total Protein 5.3 L D Albumin Urine Color Urine Clarity Urine pH Ur Specific [place]romas Urine Protein Urine Glucose (UA) Urine Ketones Urine Occult Blood Urine Nitrate Urine Bilirubin Urine Urobilinogen Ur Leukocyte Esterase Urine RBC Urine WBC Urine WBC Clumps Urine Bacteria Micro UA Comment Ur Microscopic Review Urine Culture Comments Nasal Screen MRSA (PCR) 08/13/18 08/14/18 08/14/18 04:04 05:41 09:15 WBC 5.7 RBC 2.58 L Hgb 8.0 L Hct 23.8 L MCV 92.2 MCH 31.2 MCHC 33.8 RDW 15.5 Plt Count 242 MPV 7.8 Neut % (Auto) 67.7 Lymph % (Auto) 17.3 Dickens % (Auto) 11.6 H Eos % (Auto) 3.0 Baso % (Auto) 0.4 Neut # (Auto) 3.9 Lymph # (Auto) 1.0 Dickens # (Auto) 0.7 Eos # (Auto) 0.2 Baso # (Auto) 0.0 WBC Differential . Differential Comment Auto diff final Sodium 141 Potassium 3.7 Chloride 108 H Carbon Dioxide 23.5 Anion Gap 10 BUN 21 H Creatinine 0.92 0.75 Estimated GFR 78 L Greater than 89 Random Glucose 92 Lactic Acid Calcium 8.2 L Prot Corrected Calcium Magnesium 1.7 Total Bilirubin 0.7 AST 233 H ALT 198 H Alkaline Phosphatase 182 H Total Protein 6.0 L D Albumin 2.0 L Urine Color Urine Clarity Urine pH Ur Specific Aromas Urine Protein Urine Glucose (UA) Urine Ketones Urine Occult Blood Urine Nitrate Urine Bilirubin Urine Urobilinogen Ur Leukocyte Esterase Urine RBC Urine WBC Urine WBC Clumps Urine Bacteria Micro UA Comment Ur Microscopic Review Urine Culture Comments Nasal Screen MRSA (PCR) Result Diagrams: 08/14/18 05:41 08/14/18 09:15 Microbiology: Microbiology 08/11/18 16:35 Aerobic Blood Culture - Preliminary Blood - Peripheral No growth in 3 days Anaerobic Blood Culture - Final Escherichia coli 08/11/18 16:25 Aerobic Blood Culture - Preliminary Blood - Peripheral No growth in 3 days Anaerobic Blood Culture - Preliminary No growth in 3 days 08/11/18 16:35 Urine Culture - Final Clean Catch Urine Escherichia coli Multidrug Resistant Imaging: Chest X-Ray 08/11/18 16:31 CONCLUSION: Underinflated examination with atelectasis at the lung bases. No acute cardiopulmonary abnormality is identified. Abdomen Ultrasound 08/12/18 00:00 CONCLUSION: 1. Gallbladder sludge. There are no findings to indicate acute gallbladder inflammation or obstruction. 2. Bilateral benign-appearing simple renal cysts are identified. Patient/Family Conference Present at Family Conference: Abhijeet Ramirez by telephone. Family Conference Time: 25 Family Conference Location: Telephone Issues Discussed: * Palliative care role, purpose, approach * Additional medical, psychosocial, and spiritual history * Patients general health, functional status, and cognitive changes in the months leading up to the current hospitalization * Patient/family understanding of the current medical problems * Patient/family understanding of prognosis * Patients goals of care as best understood from advance directives and/or conversations and/or values * Current medical treatment options and benefits/burdens of those options * Likely scenarios comparing ongoing aggressive care with a transition to comfort measures only * Questions answered to the best of my ability * Palliative care contact information provided Assessment and Plan Pertinent Non-Medical Issues: Psychosocial: Originally from [place], came to [place] in 1959. Patient has been for 64 years, and they had 4 children: One son of AIDS in 1990, 1 son lives with the patient and his at home, and son James lives in [place]. 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 Spiritual: Raised [place], attended [employer] years ago, but not affiliated with any organized buddhist at this time; does not desire material manager visits now. Legal: The patient now has capacity for decision-making; however, he specifically defers decision making with respect to his medical care to his ("she is much smarter than me"). If he loses capacity for decision-making , his is the proxy at this time. Ethical issues impacting care: None Important Contacts: Son James: [phone] Spouse Afia: Home [phone] Code Status: Full Code Plan: * FULL CODE * GOALS: The patient's son James reports that he and his brother and sister recognize the patient's significant decline in the past couple months, and are inclined to initiate DNR status; however, he notes that their mother (patient's ) has always wanted to continue aggressive care. The 3 children and the patient's mother are meeting this evening to further discuss the future and their goals. Continue aggressive care for now; we will discuss this again tomorrow after the family has had their time to explore this issue. * DECISION-MAKING: The patient now has capacity for decision-making; however, he specifically defers decision making with respect to his medical care to his ("she is much smarter than me"). If he loses capacity for decision-making , his is the proxy at this time. * SYMPTOMS: The patient's confusion/delirium has resolved as the sepsis has been treated. He has some chronic leg and knee pain that he was using hydrocodone for at home, but he is not having pain here in the hospital. * Persistently elevated transaminases, uncertain etiology. * Palliative Care will continue to follow the patient during this hospitalization. I will talk to son James again tomorrow since the family as a whole is addressing resuscitation status and goals of care this evening. Time Spent Total Floor Time (mins): 82 Face to Face Time (mins): 48 >50% Time in Counseling or Coordination of Care: Yes Appreciation Thank you for the opportunity to participate in the care of Geoff Fonseca.
--- NOTE | 2018-08-14 12:19 | P.PNID ---
Subjective Remarks: Discussed with RN. Patient feels tired. Awake. no distress. Says he feels weak and notes back pain. Afebrile. This is an 82-year-old white male who presented to the emergency department on 08/11/2018 from a [facility]. The patient presented with abdominal pain and fever. The patient had a Castelan catheter in place and was noted to have problems with obstructive uropathy. The Castelan catheter was investigated and subsequently the patient had a new Castelan catheter placed and had 1400 mL of dark yellow urine output. He was recently treated at [facility] and was noted to have urinary tract infection due to E. coli. Blood cultures at that time were negative. He was discharged on oral Bactrim. The patient has been followed by urology and he had undergone cystoscopy with removal of bilateral ureteral stents on 07/26/2018. The patient was also noted to have large clots in the bladder and right iliopsoas hematoma prior to removal of the stents. This consultation was requested for bacteremia. Antibiotics: Cefepime Past Medical History: PAST MEDICAL HISTORY: Gastroesophageal reflux, hypertension, hypothyroidism, benign prostatic hypertrophy, peripheral neuropathy, history of DVT, chronic warfarin treatment, degenerative disk disease, right rotator cuff tear. Allergies/Adverse Reactions: Allergies No Known Allergies Allergy (Verified 08/11/18 16:10) Objective Vital Signs 08/13/18 12:15 08/13/18 12:30 08/13/18 14:00 Temperature Pulse Rate 92 H 92 H 88 Respiratory Rate 23 25 H Blood Pressure 135/65 137/67 Pulse Oximetry 97 97 08/13/18 16:00 08/13/18 18:00 08/13/18 20:00 Temperature 99.1 F 99.0 F Pulse Rate 87 93 H 103 H Respiratory Rate 22 42 H Blood Pressure 131/63 126/79 Pulse Oximetry 97 96 08/13/18 20:45 08/13/18 22:00 08/14/18 00:00 Temperature 98.3 F Pulse Rate 97 H 94 H Respiratory Rate 28 H Blood Pressure 126/66 Pulse Oximetry 98 98 08/14/18 02:00 08/14/18 04:00 08/14/18 06:00 Temperature 98.2 F Pulse Rate 96 H 92 H 95 H Respiratory Rate 23 Blood Pressure 139/72 Pulse Oximetry 97 Intake & Output 0908/14/18 08/14/18 18:59 06:59 18:59 Intake Total 1635 / 1635 550 / 550 Output Total 1849 Balance -215 / -215 -1450 / -1450 Weight 106.6 kg Intake: IV 615 / 615 200 / 200 Maxipime Inj 1,000 MG In NS Inj 100 / 100 200 / 200 100 ML @ 200 mls/hr IV.SIG Q8H [facility] Rx#:[id number] Vancomycin Inj 1,500 MG In NS 515 / 515 Inj 500 ML @ 250 mls/hr IV.SIG Q24H [facility] Rx#:[id number] Oral 780 / 780 350 / 350 Oral Supplement 240 / 240 Output: Stool 0 / 0 Urine/Stool Mix 0 / 0 Urine Amount (Catheter) 1849 Indwelling Urethral Catheter 1849 Other: Date of Last Bowel Movement 08/13/18 08/14/18 # Bowel Movements 1 1 # Incontinent Bowel Movements 0 08/11/18 16:35 Blood - Peripheral Aerobic Blood Culture - Preliminary No growth in 3 days 08/11/18 16:35 Blood - Peripheral Anaerobic Blood Culture - Final Escherichia coli 08/11/18 16:25 Blood - Peripheral Aerobic Blood Culture - Preliminary No growth in 3 days 08/11/18 16:25 Blood - Peripheral Anaerobic Blood Culture - Preliminary No growth in 3 days 08/11/18 16:35 Clean Catch Urine Urine Culture - Final Escherichia coli Multidrug Resistant Lab - Hematology Results 08/14/18 05:41 WBC 5.7 RBC 2.58 L Hgb 8.0 L Hct 23.8 L MCV 92.2 MCH 31.2 MCHC 33.8 RDW 15.5 Plt Count 242 MPV 7.8 Neut % (Auto) 67.7 Lymph % (Auto) 17.3 [place] % (Auto) 11.6 H Eos % (Auto) 3.0 Baso % (Auto) 0.4 Neut # (Auto) 3.9 Lymph # (Auto) 1.0 [place] # (Auto) 0.7 Eos # (Auto) 0.2 Baso # (Auto) 0.0 WBC Differential . Differential Comment Auto diff final Lab - Chemistry Results 08/13/18 08/14/18 04:04 09:15 Sodium 141 Potassium 3.7 Chloride 108 H Carbon Dioxide 23.5 Anion Gap 10 BUN 21 H Creatinine 0.92 0.75 Estimated GFR 78 L Greater than 89 Random Glucose 92 Calcium 8.2 L Magnesium 1.7 Total Bilirubin 0.7 AST 233 H ALT 198 H Alkaline Phosphatase 182 H Total Protein 6.0 L D Albumin 2.0 L Imaging: ITS Impressions Chest X-Ray 08/11/18 16:31 CONCLUSION: Underinflated examination with atelectasis at the lung bases. No acute cardiopulmonary abnormality is identified. Abdomen Ultrasound 08/12/18 00:00 CONCLUSION: 1. Gallbladder sludge. There are no findings to indicate acute gallbladder inflammation or obstruction. 2. Bilateral benign-appearing simple renal cysts are identified. Physical Exam: PHYSICAL EXAMINATION: GENERAL: No acute distress. HEENT: Head is atraumatic. Extraocular movements are grossly intact. Pupils reactive to light without icterus. Oropharynx, dry mucosa. No visible lesions. NECK: Supple. No adenopathy. LUNGS: Decreased breath sounds. HEART: Regular S1 and S2, without audible murmurs, rubs, or gallops. ABDOMEN: Bowel sounds present, soft, no tenderness appreciated. EXTREMITIES: There is swelling of the left knee and left proximal thigh. No erythema. Extremities have no clubbing, cyanosis or edema. SKIN: No rash. NEUROLOGIC: Non focal. PSYCHIATRIC: Calm and cooperative. Assessment and Plan - Plan IMPRESSION: 1. Gram negative sepsis. E. coli. 2. UTI - E coli. 3. Acute kidney disease. 4. Right iliopsoas hematoma. RECOMMENDATIONS: Continue Cefepime for 10 days total until 08/21. I will sign off now. I will be unavailable 08/15 through 08/22. Please reconsult ID if further input is needed.
[2018-08-15 05:44] LABS: Baso % (Auto) 0.4 % (0.0-2.0); Eos # (Auto) 0.2 th/mm3 (0.0-0.4); Eos % (Auto) 3.3 % (0.0-4.0); Hematocrit 25.6 % (39.0-51.0); Hemoglobin 8.5 gm/dL (13.0-17.0); Lymph % (Auto) 18.6 % (9.0-44.0); Mean Corpuscular HGB Conc 33.4 % (32.0-36.0); Mean Corpuscular Hemoglobin 31.2 pg (27.0-34.0); Mean Corpuscular Volume 93.6 fL (80.0-100.0); Mean Platelet Volume 7.5 fL (7.0-11.0); Mono # (Auto) 0.7 th/mm3 (0.0-0.9); Mono % (Auto) 12.2 % (0.0-8.0); Neut # (Auto) 3.7 th/mm3 (1.8-7.7); Neut % (Auto) 65.5 % (16.0-70.0); Platelet Count 237 th/mm3 (150-450); Red Blood Count 2.73 mil/mm3 (4.50-5.90); Red Cell Distribution Width 15.6 % (11.6-17.2); White Blood Count 5.6 th/mm3 (4.0-11.0)
[2018-08-15] MEDS ORDERED: Pharmacy Ordered Lab Info OTHER ONE (05:45)
[2018-08-15] MEDS: Levothyroxine 125 MCG Tablet PO SCH (05:56)
[2018-08-15 06:05] LABS: Anion Gap 8 meq/L (5-15); Blood Urea Nitrogen 18 mg/dL (7-18); Calcium 8.2 mg/dL (8.5-10.1); Carbon Dioxide 23.8 meq/L (21.0-32.0); Chloride 109 meq/L (98-107); Glomerular Filtration Rate Greater Than 89 mL/min (>89); Glucose,Random 91 mg/dL (74-106); Potassium 3.8 meq/L (3.5-5.1); Sodium 141 meq/L (136-145)
[2018-08-15 08:19] LABS: Alanine Aminotransferase 178 U/L (12-78); Albumin 1.9 g/dL (3.4-5.0); Aspartate Aminotransferase 169 U/L (15-37)
[2018-08-15 08:21] LABS: Alkaline Phosphatase 164 U/L (45-117); Total Protein 5.6 g/dL (6.4-8.2); Vancomycin,Trough 6.4 mcg/mL (5.0-10.0)
[2018-08-15] MEDS: Pantoprazole Sodium 20 MG DR Tablet PO SCH ×2 (10:03→20:48)
[2018-08-15] MEDS: Senna/Docusate Sodium 8.6/50 MG Tablet PO SCH ×2 (10:03→20:48)
--- NOTE | 2018-08-15 10:58 | P.PNIM ---
Subjective Interval history: pt doing ok. complains of the food Physical Exam Vital signs: Vital Signs 08/14/18 11:00 08/14/18 11:15 08/14/18 11:30 Temperature Pulse Rate 100 H 101 H 98 H Respiratory Rate 23 33 H 23 Blood Pressure 154/77 H 140/72 138/74 Pulse Oximetry 97 97 98 08/14/18 11:45 08/14/18 12:00 08/14/18 12:15 Temperature Pulse Rate 98 H 97 H 100 H Respiratory Rate 23 20 34 H Blood Pressure 140/74 140/74 155/71 H Pulse Oximetry 98 98 99 08/14/18 12:30 08/14/18 12:45 08/14/18 13:00 Temperature Pulse Rate 100 H 98 H 95 H Respiratory Rate 33 H 30 H 32 H Blood Pressure 157/78 H 143/70 H 145/71 H Pulse Oximetry 99 96 99 08/14/18 16:00 08/14/18 20:00 08/14/18 20:12 Temperature 98.6 F 98.4 F Pulse Rate 97 H 102 H 100 H Respiratory Rate 20 16 Blood Pressure 140/74 126/58 L Pulse Oximetry 96 95 08/14/18 23:56 08/15/18 00:00 08/15/18 03:55 Temperature 98.4 F Pulse Rate 92 H 99 H 90 Respiratory Rate 18 Blood Pressure 133/64 Pulse Oximetry 95 08/15/18 04:00 08/15/18 08:00 Temperature 98 F 98.4 F Pulse Rate 92 H 96 H Respiratory Rate 16 20 Blood Pressure 136/82 132/71 Pulse Oximetry 95 94 L Intake & Output 08/14/18 08/15/18 08/15/18 18:59 06:59 18:59 Intake Total 200 / 200 100 / 100 Output Total 700 / 700 Balance 200 / 200 -600 / -600 Weight 82.3 kg Intake: IV 200 / 200 100 / 100 Maxipime Inj 1,000 MG In NS Inj 200 / 200 100 / 100 100 ML @ 200 mls/hr IV.SIG Q8H [facility] Rx#:[id number] Output: Urine Amount (Catheter) 700 / 700 Indwelling Urethral Catheter 700 / 700 Other: Date of Last Bowel Movement 08/13/18 heart reg lung cta abd s/nt ext no edema chiang - Urinary Catheter Management Indwelling Urethral Catheter Cath placed during this visit: yes Reason for continuing: Chronic Urinary Retention Insertion date: 08/11/18 Insertion time: 16:35 Results - Labs CBC & Chem 7: 08/15/18 03:26 08/15/18 03:25 Laboratory Results - last 24 hr 08/15/18 08/15/18 08/15/18 03:25 03:25 03:26 WBC 5.6 RBC 2.73 L Hgb 8.5 L Hct 25.6 L MCV 93.6 MCH 31.2 MCHC 33.4 RDW 15.6 Plt Count 237 MPV 7.5 Prelim Diff (Auto) Slide review pending Neut % (Auto) 65.5 Lymph % (Auto) 18.6 [place] % (Auto) 12.2 H Eos % (Auto) 3.3 Baso % (Auto) 0.4 Neut # (Auto) 3.7 Lymph # (Auto) 1.0 [place] # (Auto) 0.7 Eos # (Auto) 0.2 Baso # (Auto) 0.0 WBC Differential . Diff Scan Auto diff confirmed Differential Comment . Sodium 141 Potassium 3.8 Chloride 109 H Carbon Dioxide 23.8 Anion Gap 8 BUN 18 Creatinine 0.59 L Estimated GFR Greater than 89 Random Glucose 91 Calcium 8.2 L Total Bilirubin Cancelled 0.6 Direct Bilirubin Cancelled 0.3 H Indirect Bilirubin Cancelled 0.3 AST Cancelled 169 H ALT Cancelled 178 H Alkaline Phosphatase Cancelled 164 H Total Protein Cancelled 5.6 L Albumin Cancelled 1.9 L Vancomycin Trough Cancelled 6.4 Microbiology 08/11/18 16:35 Blood - Peripheral Aerobic Blood Culture - Preliminary No growth in 3 days 08/11/18 16:35 Blood - Peripheral Anaerobic Blood Culture - Final Escherichia coli 08/11/18 16:25 Blood - Peripheral Aerobic Blood Culture - Preliminary No growth in 3 days 08/11/18 16:25 Blood - Peripheral Anaerobic Blood Culture - Preliminary No growth in 3 days Assessment and Plan - Assessment (1) UTI (urinary tract infection) Code(s): N39.0 - Urinary tract infection, site not specified Status: Acute Plan: This is a 82-year-old male with past medical history which includes right bundle branch block since 2049, osteoporosis, gastroesophageal reflux disease, hypertension, hypothyroidism, BPH, degenerative disc disease, peripheral neuropathy and 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 Patient originally presented to [facility] 07/22/2018 with confusion/altered mental status dx with urinary tract infection which urine culture revealed pansensitive E. coli. While patient was in the hospital he became confused and pulled out his Chiang catheter with gross hematuria. CT abdomen/pelvis revealed large clot in bladder and the right iliopsoas hematoma. Dr. Laughlin was following and patient underwent cystoscopy with removal of bilateral ureteral stents 07/26. Patient's status improved and he was DC'd to SNF on 07/29/18 for strengthening. Patient was sent to the ER due to fever. The patient notes increasing lower abdominal distention and burning when he urinates via catheter for the last several days. He also notes subjective fevers at the [facility]. He does complain of lower moderate abdominal pain that is located over the suprapubic region and radiates to the back. While in the ER patient had a bedside ultrasound was performed with a curvilinear probe which reveals a distended bladder with fluid and sediment on the inferior aspect. The bladder was distended above the umbilicus on ultrasound. Chiang catheter was exchanged then the patient had 1400 cc of dark yellow urine output of the new chiang. - Pt became hypotensive with SBP 73/42 and sepsis - Pt was transferred to the ICU & followed by Critical Care Medicine for 2 days - Pt's blood pressure improved with IV hydration - blood cultures (08/11) --> E. Coli - Urine Cx (08/11) --> E. Coli - Rocephin 08/11 - Zosyn (08/11 - 08/13) - Vancomycin (08/11 - 08/13) - Cefepime (08/13 - present) -ID following and managing abx - LFTs with mild elevation 08/11- Abdominal US (08/11) --> no acute abnormalities - Code status discussed at length per Dr Alexis with pt//son (08/13) - Pt did NOT appear to have good insight regarding code status. Continue Full code for now - requested Palliative consult for clarification of goals cont current care increase activity. PT consult. plan for return to snf when medically ready. UTI - see above CRYSTAL due to sepsis/retention renal function continues to improve daily. Recent Iliopsoas hematoma patient he had a fall prior to previous hospitalization 07/22/18 and landed on the corner of a trunk, healing ecchymosis R flank area Abdomen/Pelvis CT 07/24/18 revealed: 1. Bladder filled with clot partially decompressed by Chiang. Etiology for hematuria is not identified in this anticoagulated patient. 2. Smaller moderate right iliopsoas hematoma Coumadin on hold HTN Hold home metoprolol 100 mg PO daily and enalapril 20 mg PO BID - hytrin Hypothyroidism Continue home Synthroid BPH - hytrin
--- NOTE | 2018-08-15 15:55 | P.PNPAL ---
Reason for Visit Reason for visit: a. To assist with evaluation and management of symptoms including: debility, weakness, decreased appetite. b. To assist medical decision maker(s) with: better understanding of current medical conditions; weighing benefits/burdens of medical treatment options; making medical treatment decisions. Subjective Subjective/Interval History: Patient seen and examined in room. and sister in law at bedside. Also present Carrie Ferguson LCSW. Patient is awake and alert. He tells me his is " worn out today." He worked with PT doing exercises in the bed and tells me he is exhausted. He denies pain, shortness of breath or other symptoms. He then falls off to sleep. Has PRN Ultram ordered for pain, while he denies pain during my visit, he has had 3 doses in the past 24 hours. His does not feel he has been in pain during her visit today. Afebrile. Vital signs stable. LBM 08/13/18. Speech evaluation recommended soft diet and thin liquids today. Family reports he is eating very little, drinking a few bottles of Ensure daily. He reports food does not taste good and has no appetite. Albumin 1.9. WBC has normalized, now 5.6. Slight decrease in liver function studies today, remain elevated. 08/11/18 blood and urine cultures positive E. Coli, urine multi drug resistant. Family/Friend Interactions: Met with and sister in law at bedside. Family was a bit guarded initially. I reviewed palliative care services. Offered a time for family meeting, agrees to meet 08/16/18 at 3pm, she will notify her children. Carrie also attempted to notify sonJames - message left with palliative care contact information. wonders if patient will be involved in meeting, she seems to desire palliative care team meet with her and family prior to including patient in the conversation. Did not readdress goals of medical treatment today per request to include children. Advance Directives Significant change in goals:: Will further clarify goals of medical treatment at family meeting 08/16/18 at 3pm. Objective Vital Signs: Vital Signs 08/14/18 16:00 08/14/18 20:00 08/14/18 20:12 Temperature 98.6 F 98.4 F Pulse Rate 97 H 102 H 100 H Respiratory Rate 20 16 Blood Pressure 140/74 126/58 L Pulse Oximetry 96 95 08/14/18 23:56 08/15/18 00:00 08/15/18 03:55 Temperature 98.4 F Pulse Rate 92 H 99 H 90 Respiratory Rate 18 Blood Pressure 133/64 Pulse Oximetry 95 08/15/18 04:00 08/15/18 08:00 08/15/18 12:00 Temperature 98 F 98.4 F 98.0 F Pulse Rate 92 H 88 95 H Respiratory Rate 16 20 20 Blood Pressure 136/82 132/71 128/66 Pulse Oximetry 95 94 L 96 Intake & Output 08/14/18 08/15/18 08/15/18 18:59 06:59 18:59 Intake Total 200 / 200 100 / 100 1100 / 1100 Output Total 700 / 700 Balance 200 / 200 -600 / -600 1100 / 1100 Weight 82.3 kg Intake: IV 200 / 200 100 / 100 1100 / 1100 Maxipime Inj 1,000 MG In NS Inj 200 / 200 100 / 100 100 / 100 100 ML @ 200 mls/hr IV.SIG Q8H [facility] Rx#:[id number] Output: Urine Amount (Catheter) 700 / 700 Indwelling Urethral Catheter 700 / 700 Other: Date of Last Bowel Movement 08/13/18 08/13/18 Physical Exam: CONSTITUTIONAL/GENERAL: This is an elderly, weak patient, in no apparent distress. TUBES/LINES/DRAINS: SKIN: No jaundice, rashes, or lesions. Ecchymoses on upper extremities. No wounds seen anteriorly. Skin temperature appropriate. Not diaphoretic. EYES: Pupils equal and round and reactive. ENT: Hearing moderately diminished. Nose without bleeding or purulent drainage. Throat without visible erythema, exudates, masses, or lesions. CARDIOVASCULAR: RRR. RESPIRATORY/CHEST: Clear to auscultation, diminished, shallow, unlabored respirations. GASTROINTESTINAL: Abdomen soft, non-tender, nondistended. Bowel sounds present. GENITOURINARY: Without palpable bladder distension. Castelan catheter in place. MUSCULOSKELETAL: Extremities with trace LE edema. No mottling. NEUROLOGICAL: Awake and alert, falls to sleep during my visit. Follows commands. Moves all extremities. PSYCHIATRIC: No obvious anxiety/depression. No apparent hallucinations or other psychotic thought process. Diagnostic Tests Laboratory: Laboratory Results - last 72 hr 08/13/18 08/14/18 08/14/18 04:04 05:41 09:15 WBC 5.7 RBC 2.58 L Hgb 8.0 L Hct 23.8 L MCV 92.2 MCH 31.2 MCHC 33.8 RDW 15.5 Plt Count 242 MPV 7.8 Prelim Diff (Auto) Neut % (Auto) 67.7 Lymph % (Auto) 17.3 [place] % (Auto) 11.6 H Eos % (Auto) 3.0 Baso % (Auto) 0.4 Neut # (Auto) 3.9 Lymph # (Auto) 1.0 [place] # (Auto) 0.7 Eos # (Auto) 0.2 Baso # (Auto) 0.0 WBC Differential . Diff Scan Differential Comment Auto diff final Sodium 141 Potassium 3.7 Chloride 108 H Carbon Dioxide 23.5 Anion Gap 10 BUN 21 H Creatinine 0.92 0.75 Estimated GFR 78 L Greater than 89 Random Glucose 92 Calcium 8.2 L Magnesium 1.7 Total Bilirubin 0.7 Direct Bilirubin Indirect Bilirubin AST 233 H ALT 198 H Alkaline Phosphatase 182 H Total Protein 6.0 L D Albumin 2.0 L Vancomycin Trough 08/15/18 08/15/18 08/15/18 03:25 03:25 03:26 WBC 5.6 RBC 2.73 L Hgb 8.5 L Hct 25.6 L MCV 93.6 MCH 31.2 MCHC 33.4 RDW 15.6 Plt Count 237 MPV 7.5 Prelim Diff (Auto) Slide review pending Neut % (Auto) 65.5 Lymph % (Auto) 18.6 [place] % (Auto) 12.2 H Eos % (Auto) 3.3 Baso % (Auto) 0.4 Neut # (Auto) 3.7 Lymph # (Auto) 1.0 [place] # (Auto) 0.7 Eos # (Auto) 0.2 Baso # (Auto) 0.0 WBC Differential . Diff Scan Auto diff confirmed Differential Comment . Sodium 141 Potassium 3.8 Chloride 109 H Carbon Dioxide 23.8 Anion Gap 8 BUN 18 Creatinine 0.59 L Estimated GFR Greater than 89 Random Glucose 91 Calcium 8.2 L Magnesium Total Bilirubin Cancelled 0.6 Direct Bilirubin Cancelled 0.3 H Indirect Bilirubin Cancelled 0.3 AST Cancelled 169 H ALT Cancelled 178 H Alkaline Phosphatase Cancelled 164 H Total Protein Cancelled 5.6 L Albumin Cancelled 1.9 L Vancomycin Trough Cancelled 6.4 Result Diagrams: 08/15/18 03:26 08/15/18 03:25 Microbiology: Microbiology 08/11/18 16:25 Aerobic Blood Culture - Preliminary Blood - Peripheral No growth in 4 days Anaerobic Blood Culture - Preliminary No growth in 4 days 08/11/18 16:35 Aerobic Blood Culture - Preliminary Blood - Peripheral No growth in 4 days Anaerobic Blood Culture - Final Escherichia coli 08/11/18 16:35 Urine Culture - Final Clean Catch Urine Escherichia coli Multidrug Resistant Imaging: Chest X-Ray 08/11/18 16:31 CONCLUSION: Underinflated examination with atelectasis at the lung bases. No acute cardiopulmonary abnormality is identified. Abdomen Ultrasound 08/12/18 00:00 CONCLUSION: 1. Gallbladder sludge. There are no findings to indicate acute gallbladder inflammation or obstruction. 2. Bilateral benign-appearing simple renal cysts are identified. Assessment and Plan - Disease Oriented Problem List (1) Elevated transaminase level (2) UTI (urinary tract infection) (3) Sepsis (4) Weakness (5) Anemia (6) Debility - Symptom Scale (1) Weakness 0-10 Scale: Unable to quantify (2) Debility 0-10 Scale: Unable to quantify (3) Malnutrition 0-10 Scale: Unable to quantify Pertinent Non-Medical Issues: Psychosocial: Originally from [place], came to [place] in 1959. Patient has been for 64 years, and they had 4 children: One son of AIDS in 1990, 1 son lives with the patient and his at home, and son James lives in [place]. 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 Spiritual: Raised Hindu, attended Congregation orthodox years ago, but not affiliated with any organized adventist at this time; does not desire beef breaker visits now. Legal: The patient now has capacity for decision-making; however, he specifically defers decision making with respect to his medical care to his ("she is much smarter than me"). If he loses capacity for decision-making , his is the proxy at this time. Ethical issues impacting care: None Important Contacts: Son James: [phone] Spouse Afia: Home [phone] Prognosis: The patient's weakness and debility is fairly profound and progressive over the past month. He is at high risk for continued decline and additional complications. He would be appropriate for hospice services if his goals become comfort oriented. Code Status: Full Code Plan: * FULL CODE * GOALS: Met with and sister in law at bedside. Family was a bit guarded initially. I reviewed palliative care services. Offered a time for family meeting, agrees to Family Meeting on 08/16/18 at 3pm, she will notify her children. Carrie also attempted to notify sonJames with palliative care contact information. wonders if patient will be involved in meeting, she seems to desire palliative care team meet with her and family prior to including patient in the conversation. Did not readdress goals of medical treatment today per request to include children. Continue aggressive care for now; we will discuss this again tomorrow after the family has had their time to explore this issue. * DECISION-MAKING: The patient now has capacity for decision-making; however, he specifically defers decision making with respect to his medical care to his ("she is much smarter than me"). If he loses capacity for decision-making , his is the proxy at this time. * SYMPTOMS: The patient's confusion/delirium has resolved as the sepsis has been treated. He has some chronic leg and knee pain that he was using hydrocodone for at home, but he is not having pain here in the hospital. Weakness: continue PT. * Persistently elevated transaminases, uncertain etiology. * Palliative Care will continue meeting arranged 08/16/18 at 3pm per request. I suspect family will want to meet with palliative care and family prior to speaking with patient. Attestation Attestation: To help prompt me to consider important information that might be impacting today's encounter and assessment, information from prior notes written by myself or my colleagues may have been "brought forward" into today's note. My signature on this note, however, is an attestation that I personally performed the exam, history, and/or decision-making noted today, and, unless otherwise indicated, the interactions with patient, family, and staff as well as the review of records all occurred today. I also attest that the listed assessment and stated plan reflect my best clinical judgment today based on the combination of historical information, prior notes, and today's exam/ interactions. When time spent is documented, it refers only to time spent today by the signer, or if indicated, combined time spent today by collaborating physician/nurse practitioner.
[2018-08-16] MEDS: Levothyroxine 125 MCG Tablet PO SCH (05:14)
[2018-08-16] MEDS: Pantoprazole Sodium 20 MG DR Tablet PO SCH ×2 (08:12→20:06)
[2018-08-16] MEDS: Senna/Docusate Sodium 8.6/50 MG Tablet PO SCH ×2 (08:12→20:06)
--- NOTE | 2018-08-16 09:23 | P.PNIM ---
Subjective Interval history: no new complaints Physical Exam Vital signs: Vital Signs 08/15/18 12:00 08/15/18 16:00 08/15/18 16:02 Temperature 98.0 F 98.2 F Pulse Rate 95 H 86 92 H Respiratory Rate 20 20 Blood Pressure 128/66 106/56 L Pulse Oximetry 96 96 08/15/18 20:00 08/16/18 00:00 08/16/18 02:46 Temperature 98.1 F 98.8 F 97.9 F Pulse Rate 89 87 85 Respiratory Rate 16 18 16 Blood Pressure 134/93 H 135/75 130/88 Pulse Oximetry 95 94 L 95 08/16/18 04:00 08/16/18 08:00 Temperature Pulse Rate 98 H Respiratory Rate 16 Blood Pressure Pulse Oximetry Intake & Output 08/15/18 08/16/18 08/16/18 18:59 06:59 18:59 Intake Total 1880 / 1880 600 / 600 Output Total 700 / 700 1250 / 1250 Balance 1180 / 1180 -650 / -650 Weight 81.8 kg Intake: IV 1200 / 1200 100 / 100 Maxipime Inj 1,000 MG In NS Inj 200 / 200 100 / 100 100 ML @ 200 mls/hr IV.SIG Q8H MINESH Rx#:[id number] Oral 480 / 480 500 / 500 Other 200 / 200 Output: Urine 700 / 700 Urine Amount (Catheter) 1250 / 1250 Indwelling Urethral Catheter 1250 / 1250 Other: Date of Last Bowel Movement 08/13/18 08/15/18 08/15/18 # Bowel Movements 0 heart reg lung cta abd s/nt ext no edema chiang - Urinary Catheter Management Indwelling Urethral Catheter Cath placed during this visit: yes Reason for continuing: Chronic Urinary Retention Insertion date: 08/11/18 Insertion time: 16:35 Results - Labs CBC & Chem 7: 08/15/18 03:26 08/15/18 03:25 Microbiology 08/11/18 16:25 Blood - Peripheral Aerobic Blood Culture - Preliminary No growth in 4 days 08/11/18 16:25 Blood - Peripheral Anaerobic Blood Culture - Preliminary No growth in 4 days 08/11/18 16:35 Blood - Peripheral Aerobic Blood Culture - Preliminary No growth in 4 days 08/11/18 16:35 Blood - Peripheral Anaerobic Blood Culture - Final Escherichia coli Assessment and Plan - Assessment (1) UTI (urinary tract infection) Code(s): N39.0 - Urinary tract infection, site not specified Status: Acute Plan: This is a 82-year-old male with past medical history which includes right bundle branch block since 2049, osteoporosis, gastroesophageal reflux disease, hypertension, hypothyroidism, BPH, degenerative disc disease, peripheral neuropathy and 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 Patient originally presented to [facility] 07/22/2018 with confusion/altered mental status dx with urinary tract infection which urine culture revealed pansensitive E. coli. While patient was in the hospital he became confused and pulled out his Chiang catheter with gross hematuria. CT abdomen/pelvis revealed large clot in bladder and the right iliopsoas hematoma. Dr. Laughlin was following and patient underwent cystoscopy with removal of bilateral ureteral stents 07/26. Patient's status improved and he was DC'd to SNF on 07/29/18 for strengthening. Patient was sent to the ER due to fever. The patient notes increasing lower abdominal distention and burning when he urinates via catheter for the last several days. He also [facility]. He does complain of lower moderate abdominal pain that is located over the suprapubic region and radiates to the back. While in the ER patient had a bedside ultrasound was performed with a curvilinear probe which reveals a distended bladder with fluid and sediment on the inferior aspect. The bladder was distended above the umbilicus on ultrasound. Chiang catheter was exchanged then the patient had 1400 cc of dark yellow urine output of the new chiang. - Pt became hypotensive with SBP 73/42 and sepsis - Pt was transferred to the ICU & followed by Critical Care Medicine for 2 days - Pt's blood pressure improved with IV hydration - blood cultures (08/11) --> E. Coli - Urine Cx (08/11) --> E. Coli - Rocephin 08/11 - Zosyn (08/11 - 08/13) - Vancomycin (08/11 - 08/13) - Cefepime (08/13 - present) -ID following and managing abx - LFTs with mild elevation 08/11- Abdominal US (08/11) --> no acute abnormalities - Code status discussed at length per Dr Alexis with pt//son (08/13) - Pt did NOT appear to have good insight regarding code status. Continue Full code for now - requested Palliative consult for clarification of goals cont current care increase activity. PT consult. plan for return to snf when medically ready. UTI - see above CRYSTAL due to sepsis/retention renal function continues to improve daily. Recent Iliopsoas hematoma patient he had a fall prior to previous hospitalization 07/22/18 and landed on the corner of a trunk, healing ecchymosis R flank area Abdomen/Pelvis CT 07/24/18 revealed: 1. Bladder filled with clot partially decompressed by Chiang. Etiology for hematuria is not identified in this anticoagulated patient. 2. Smaller moderate right iliopsoas hematoma Coumadin on hold HTN Hold home metoprolol 100 mg PO daily and enalapril 20 mg PO BID - hytrin Hypothyroidism Continue home Synthroid BPH - hytrin
--- NOTE | 2018-08-16 16:08 | P.PNPAL ---
Reason for Visit Reason for visit: a. To assist with evaluation and management of symptoms including: debility, weakness, decreased appetite. b. To assist medical decision maker(s) with: better understanding of current medical conditions; weighing benefits/burdens of medical treatment options; making medical treatment decisions. Subjective Subjective/Interval History: INTERVAL NOTE: The patient is seen in his room 1401, and he is sitting in the chair. He is quite weak and he doses off as we talk, but he still seems oriented when he is awakened. He denies pain or dyspnea. Patient reports he was able to be up with a walker and take 3 or 4 steps with the assistance of the therapist today. Since then, he says "I am worn out." He remains afebrile, and his white count yesterday was 5.6. Lengthy discussion with patient and family regarding goals of care, see below. . Family/Friend Interactions: Lengthy discussion in the room with patient, , son Bernard, daughter Damaris, and also son Miller via telephone. Also present Matthew NARAYANW. After much discussion about the patient's decline over the past year, more rapid decline over the past month with the 2 episodes of sepsis, profound weakness, and high likelihood for further complications and decline in the upcoming weeks and months, the patient and family have elected DNR status. They are hoping he can go to a rehab center again and are hoping that he can get a little stronger and get back home. They would like to talk with hospice now while you are in the hospital and have hospice follow with them while he goes to rehab, so that hospice services will be available when he declines or when he fails rehab. Advance Directives Living Will: Never completed Health Care Surrogate: Never completed Durable Power of Experimental Aircraft Mechanic: Never completed Significant change in goals:: They request DNR status and hospice consultation for informational purposes at this time. Objective Vital Signs: Vital Signs 08/15/18 16:00 08/15/18 16:02 08/15/18 20:00 Temperature 98.2 F 98.1 F Pulse Rate 86 92 H 89 Respiratory Rate 20 16 Blood Pressure 106/56 L 134/93 H Pulse Oximetry 96 95 08/16/18 00:00 08/16/18 02:46 08/16/18 04:00 Temperature 98.8 F 97.9 F Pulse Rate 87 85 98 H Respiratory Rate 18 16 Blood Pressure 135/75 130/88 Pulse Oximetry 94 L 95 08/16/18 08:00 08/16/18 12:00 Temperature 97.5 F L 98.4 F Pulse Rate 93 H 93 H Respiratory Rate 18 20 Blood Pressure 125/64 121/73 Pulse Oximetry 95 94 L Intake & Output 08/15/18 08/16/18 08/16/18 18:59 06:59 18:59 Intake Total 1880 / 1880 600 / 600 100 / 100 Output Total 700 / 700 1250 / 1250 Balance 1180 / 1180 -650 / -650 100 / 100 Weight 81.8 kg Intake: IV 1200 / 1200 100 / 100 100 / 100 Maxipime Inj 1,000 MG In NS Inj 200 / 200 100 / 100 100 / 100 100 ML @ 200 mls/hr IV.SIG Q8H MINESH Rx#:[id number] Oral 480 / 480 500 / 500 Other 200 / 200 Output: Urine 700 / 700 Urine Amount (Catheter) 1250 / 1250 Indwelling Urethral Catheter 1250 / 1250 Other: Date of Last Bowel Movement 08/13/18 08/15/18 08/15/18 # Bowel Movements 0 Physical Exam: CONSTITUTIONAL/GENERAL: This is an elderly, weak patient, in no apparent distress. He dozes off frequently. TUBES/LINES/DRAINS: SKIN: No jaundice, rashes, or lesions. Ecchymoses on upper extremities. No wounds seen anteriorly. Skin temperature appropriate. Not diaphoretic. ENT: Hearing moderately diminished. Nose without bleeding or purulent drainage. Throat without visible erythema, exudates, masses, or lesions. CARDIOVASCULAR: RRR. RESPIRATORY/CHEST: Clear to auscultation, diminished, shallow, unlabored respirations. GASTROINTESTINAL: Abdomen soft, non-tender, nondistended. Bowel sounds present. GENITOURINARY: Without palpable bladder distension. Castelan catheter in place. MUSCULOSKELETAL: Extremities with trace LE edema. No mottling. NEUROLOGICAL: Awakens and talks for a couple minutes and then dozes off again.. Follows commands. Moves all extremities. PSYCHIATRIC: No obvious anxiety/depression. No apparent hallucinations or other psychotic thought process. Diagnostic Tests Laboratory: Laboratory Results - last 72 hr 08/14/18 08/14/18 08/15/18 05:41 09:15 03:25 WBC 5.7 RBC 2.58 L Hgb 8.0 L Hct 23.8 L MCV 92.2 MCH 31.2 MCHC 33.8 RDW 15.5 Plt Count 242 MPV 7.8 Prelim Diff (Auto) Neut % (Auto) 67.7 Lymph % (Auto) 17.3 Kings % (Auto) 11.6 H Eos % (Auto) 3.0 Baso % (Auto) 0.4 Neut # (Auto) 3.9 Lymph # (Auto) 1.0 Kings # (Auto) 0.7 Eos # (Auto) 0.2 Baso # (Auto) 0.0 WBC Differential . Diff Scan Differential Comment Auto diff final Sodium 141 Potassium 3.7 Chloride 108 H Carbon Dioxide 23.5 Anion Gap 10 BUN 21 H Creatinine 0.75 Estimated GFR Greater than 89 Random Glucose 92 Calcium 8.2 L Magnesium 1.7 Total Bilirubin 0.7 Cancelled Direct Bilirubin Cancelled Indirect Bilirubin Cancelled AST 233 H Cancelled ALT 198 H Cancelled Alkaline Phosphatase 182 H Cancelled Total Protein 6.0 L D Cancelled Albumin 2.0 L Cancelled Vancomycin Trough Cancelled 08/15/18 08/15/18 03:25 03:26 WBC 5.6 RBC 2.73 L Hgb 8.5 L Hct 25.6 L MCV 93.6 MCH 31.2 MCHC 33.4 RDW 15.6 Plt Count 237 MPV 7.5 Prelim Diff (Auto) Slide review pending Neut % (Auto) 65.5 Lymph % (Auto) 18.6 Kings % (Auto) 12.2 H Eos % (Auto) 3.3 Baso % (Auto) 0.4 Neut # (Auto) 3.7 Lymph # (Auto) 1.0 Kings # (Auto) 0.7 Eos # (Auto) 0.2 Baso # (Auto) 0.0 WBC Differential . Diff Scan Auto diff confirmed Differential Comment . Sodium 141 Potassium 3.8 Chloride 109 H Carbon Dioxide 23.8 Anion Gap 8 BUN 18 Creatinine 0.59 L Estimated GFR Greater than 89 Random Glucose 91 Calcium 8.2 L Magnesium Total Bilirubin 0.6 Direct Bilirubin 0.3 H Indirect Bilirubin 0.3 AST 169 H ALT 178 H Alkaline Phosphatase 164 H Total Protein 5.6 L Albumin 1.9 L Vancomycin Trough 6.4 Result Diagrams: 08/15/18 03:26 08/15/18 03:25 Microbiology: Microbiology 0928/18 16:25 Aerobic Blood Culture - Final Blood - Peripheral No growth in 5 days Anaerobic Blood Culture - Final No growth in 5 days 08/11/18 16:35 Aerobic Blood Culture - Final Blood - Peripheral No growth in 5 days Anaerobic Blood Culture - Final Escherichia coli Assessment and Plan - Disease Oriented Problem List (1) Elevated transaminase level (2) Sepsis (3) UTI (urinary tract infection) (4) Weakness (5) Anemia (6) Debility Pertinent Non-Medical Issues: Psychosocial: Originally from [place], came to [place] in 1959. Patient has been for 64 years, and they had 4 children: One son of AIDS in 1990, 1 son lives with the patient and his at home, and son James lives in [place]. 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 Spiritual: Raised Alevism, attended [employer] yazdanism years ago, but not affiliated with any organized adventist at this time; does not desire bible teacher visits now. Legal: The patient now has capacity for decision-making; however, he specifically defers decision making with respect to his medical care to his ("she is much smarter than me"). If he loses capacity for decision-making , his is the proxy at this time. Ethical issues impacting care: None Important Contacts: Son James: [phone] Spouse Afia: Home [phone] Prognosis: The patient's weakness and debility is fairly profound and progressive over the past month. He is at high risk for continued decline and additional complications. He would be appropriate for hospice services if his goals become comfort oriented. Code Status: No Code DNR Plan: * DO NOT RESUSCITATE, per request of patient and family 08/16/18 * GOALS: Met with patient, , daughter, both sons: After much discussion about the patient's decline over the past year, more rapid decline over the past month with the 2 episodes of sepsis, profound weakness, and high likelihood for further complications and decline in the upcoming weeks and months, the patient and family have elected DNR status. They are hoping he can go to a rehab center again and are hoping that he can get a little stronger and get back home. They would like to talk with hospice now while you are in the hospital and have hospice follow with them while he goes to rehab, so that hospice services will be available when he declines or when he fails rehab. * Hospice consult placed; they will follow the patient here and when he goes to rehab, and will be available for when he fails or has an additional complication. * DECISION-MAKING: The patient now has capacity for decision-making; however, he specifically defers decision making with respect to his medical care to his ("she is much smarter than me"). If he loses capacity for decision-making , his is the proxy at this time. * SYMPTOMS: The patient's confusion/delirium has resolved as the sepsis has been treated. He has some chronic leg and knee pain that he was using hydrocodone for at home, but he is not having pain here in the hospital. Weakness: continue PT. * Palliative Care will continue following the patient during this hospitalization. Time Spent Total Floor Time (mins): 49 Face to Face Time (mins): 35 >50% Time in Counseling or Coordination of Care: Yes Attestation Attestation: To help prompt me to consider important information that might be impacting today's encounter and assessment, information from prior notes written by myself or my colleagues may have been "brought forward" into today's note. My signature on this note, however, is an attestation that I personally performed the exam, history, and/or decision-making noted today, and, unless otherwise indicated, the interactions with patient, family, and staff as well as the review of records all occurred today. I also attest that the listed assessment and stated plan reflect my best clinical judgment today based on the combination of historical information, prior notes, and today's exam/ interactions. When time spent is documented, it refers only to time spent today by the signer, or if indicated, combined time spent today by collaborating physician/nurse practitioner.
[2018-08-17] MEDS: Levothyroxine 125 MCG Tablet PO SCH (05:08)
[2018-08-17] MEDS: Pantoprazole Sodium 20 MG DR Tablet PO SCH ×2 (08:06→20:01)
[2018-08-17] MEDS: Senna/Docusate Sodium 8.6/50 MG Tablet PO SCH ×2 (08:06→20:02)
[2018-08-17 09:12] LABS: Albumin 1.9 g/dL (3.4-5.0); Aspartate Aminotransferase 76 U/L (15-37); Glomerular Filtration Rate Greater Than 89 mL/min (>89)
[2018-08-17 09:13] LABS: Alanine Aminotransferase 117 U/L (12-78)
[2018-08-17 09:15] LABS: Alkaline Phosphatase 138 U/L (45-117); Total Protein 5.7 g/dL (6.4-8.2)
--- NOTE | 2018-08-17 10:01 | P.PNIM ---
Subjective Interval history: No family present at bedside this morning. No new complaints He denies any abd pain, N/V or diarrhea. Physical Exam Vital signs: Vital Signs 08/16/18 12:00 08/16/18 16:00 08/16/18 20:00 Temperature 98.4 F 97.8 F 99.3 F Pulse Rate 93 H 101 H 102 H Respiratory Rate 20 18 18 Blood Pressure 121/73 106/56 L 104/57 L Pulse Oximetry 94 L 95 94 L 08/16/18 23:47 08/17/18 00:00 08/17/18 04:00 Temperature 98.9 F 98.5 F Pulse Rate 92 H 90 88 Respiratory Rate 16 16 Blood Pressure 108/62 123/72 Pulse Oximetry 95 95 08/17/18 08:00 Temperature 98.3 F Pulse Rate 94 H Respiratory Rate 23 Blood Pressure 120/67 Pulse Oximetry 94 L Intake & Output 08/16/18 08/17/18 08/17/18 18:59 06:59 18:59 Intake Total 200 / 200 320 / 320 Output Total 850 / 850 Balance 200 / 200 -530 / -530 Weight 83.7 kg Intake: IV 100 / 100 200 / 200 Maxipime Inj 1,000 MG In NS Inj 100 / 100 200 / 200 100 ML @ 200 mls/hr IV.SIG Q8H MINESH Rx#:[id number] Oral 120 / 120 Other 100 / 100 Output: Urine 850 / 850 Other: Date of Last Bowel Movement 08/15/18 08/16/18 # Bowel Movements 0 Narrative: General: NAD, AAOx3 Chest: CTA Cardiac: Regular Abd: +BS, soft ND/NT Ext: No edema - Urinary Catheter Management Indwelling Urethral Catheter Cath placed during this visit: yes Reason for continuing: Chronic Urinary Retention Insertion date: 08/11/18 Insertion time: 16:35 Results - Labs CBC & Chem 7: 08/15/18 03:26 08/17/18 06:10 Laboratory Results - last 24 hr 08/17/18 06:10 Creatinine 0.63 Estimated GFR Greater than 89 Total Bilirubin 0.5 Direct Bilirubin 0.2 Indirect Bilirubin 0.3 AST 76 H ALT 117 H Alkaline Phosphatase 138 H Total Protein 5.7 L Albumin 1.9 L Microbiology 08/11/18 16:25 Blood - Peripheral Aerobic Blood Culture - Final No growth in 5 days 08/11/18 16:25 Blood - Peripheral Anaerobic Blood Culture - Final No growth in 5 days 08/11/18 16:35 Blood - Peripheral Aerobic Blood Culture - Final No growth in 5 days 08/11/18 16:35 Blood - Peripheral Anaerobic Blood Culture - Final Escherichia coli - Imaging Chest X-Ray 08/11/18 16:31 CONCLUSION: Underinflated examination with atelectasis at the lung bases. No acute cardiopulmonary abnormality is identified. Abdomen Ultrasound 08/12/18 00:00 CONCLUSION: 1. Gallbladder sludge. There are no findings to indicate acute gallbladder inflammation or obstruction. 2. Bilateral benign-appearing simple renal cysts are identified. Assessment and Plan - Assessment (1) UTI (urinary tract infection) Code(s): N39.0 - Urinary tract infection, site not specified Status: Acute Plan: E. 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 Patient originally presented to [facility] 07/22/2018 with confusion/altered mental status dx with urinary tract infection which urine culture revealed pansensitive E. coli. While patient was in the hospital he became confused and pulled out his Chiang catheter with gross hematuria. CT abdomen/pelvis revealed large clot in bladder and the right iliopsoas hematoma. Dr. Laughlin was following and patient underwent cystoscopy with removal of bilateral ureteral stents 07/26. Patient's status improved and he was DC'd to SNF on 07/29/18 for strengthening. Patient was sent to the ER due to fever. The patient notes increasing lower abdominal distention and burning when he urinates via catheter for the last several days. He also [facility] at the [facility]. He does complain of lower moderate abdominal pain that is located over the suprapubic region and radiates to the back. While in the ER patient had a bedside ultrasound was performed with a curvilinear probe which reveals a distended bladder with fluid and sediment on the inferior aspect. The bladder was distended above the umbilicus on ultrasound. Chiang catheter was exchanged then the patient had 1400 cc of dark yellow urine output of the new chiang. - Pt became hypotensive with SBP 73/42 and sepsis - Pt was transferred to the ICU & followed by Critical Care Medicine for 2 days - Pt's blood pressure improved with IV hydration - blood cultures (08/11) --> E. Coli - Urine Cx (08/11) --> E. Coli - Rocephin 08/11 - Zosyn (08/11 - 08/13) - Vancomycin (08/11 - 08/13) - Cefepime (08/13 - present) -ID following and managing abx - LFTs with mild elevation 08/11- Abdominal US (08/11) --> no acute abnormalities - Code status discussed at length per Dr Alexis with pt//son (08/13) - Pt did NOT appear to have good insight regarding code status. Appreciate Palliative consult for clarification of goals - Pt is a DNR and Hospice consult is pending as they will likely follow the pt at rehab and if he fails at rehab then pt likely to proceed with comfort care measures. - PT recommending rehab - Anticipate d/c to SNF possibly tomorrow and will prescribe Cipro through UTI - see above CRYSTAL - Due to sepsis/retention - Renal function has improved. Recent Iliopsoas hematoma - Patient he had a fall prior to previous hospitalization 07/22/18 and landed on the corner of a trunk, healing ecchymosis R flank area - Abdomen/Pelvis CT (07/24/18) --> 1. Bladder filled with clot partially decompressed by Chiang. Etiology for hematuria is not identified in this anticoagulated patient. 2. Smaller moderate right iliopsoas hematoma - Coumadin on hold HTN - His home doses of metoprolol 100 mg PO daily and enalapril 20 mg PO BID have been on hold. - BP has been normal - Hytrin Hypothyroidism - Continue home Synthroid BPH - Hytrin The exam, history, and the medical decision-making described in the above note were completed with the assistance of the mid-level provider. I reviewed and agree with the findings presented. I attest that I had a [id number] encounter with the patient on the same day, and personally performed and documented my assessment and findings in the medical record. plan for dc to snf tomorrow. cont abx. cont chiang.
--- NOTE | 2018-08-17 10:58 | P.PNPAL ---
Palliative care continues to follow along with Mr. Fonseca for ongoing support and assistance with communication and symptom management. Follow-up today for completion of [facility] DNR Order ([facility] DNR). Patient currently alone in room (defers to to sign due to his lethargy and inability to fully engage in goals of medical treatment conversation). In absence of written advance directives, health care proxy calls to patient's supported by three children. Form left on patient's chart. RN informed, requested assistance with getting to sign during her visit. Palliative care will continue to follow along throughout hospitalization.
[2018-08-17] MEDS ORDERED: Bisacodyl 10 MG Supp RECTAL PRN (16:38)
[2018-08-18] MEDS: Levothyroxine 125 MCG Tablet PO SCH (05:14)
[2018-08-18 08:41] VITALS: RESP 17
--- NOTE | 2018-08-18 09:48 | P.DS ---
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 Patient originally presented to [facility] 07/22/2018 with confusion/altered mental status dx with urinary tract infection which urine culture revealed pansensitive E. coli. While patient was in the hospital he became confused and pulled out his Chiang catheter with gross hematuria. CT abdomen/pelvis revealed large clot in bladder and the right iliopsoas hematoma. Dr. Laughlin was following and patient underwent cystoscopy with removal of bilateral ureteral stents 07/26. Patient's status improved and he was DC'd to SNF on 07/29/18 for strengthening. Patient was sent to the ER due to fever. The patient notes increasing lower abdominal distention and burning when he urinates via catheter for the last several days. He also notes subjective fevers at the [facility]. He does complain of lower moderate abdominal pain that is located over the suprapubic region and radiates to the back. While in the ER patient had a bedside ultrasound was performed with a curvilinear probe which reveals a distended bladder with fluid and sediment on the inferior aspect. The bladder was distended above the umbilicus on ultrasound. Chiang catheter was exchanged then the patient had 1400 cc of dark yellow urine output of the new chiang. Patient denies any current cough, chest pain, or shortness of breath. 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 PSXH: Surgical History (Last Updated 07/24/18 @ 20:16 by Pavan Serrato MD) Right rotator cuff tear (Acute) Cataract, right eye FMH: reviewed and non-contributory Social history: denies ETOH use former tobacco use denies illicit drug use DS: Diagnosis - Discharge Diagnosis (1) UTI (urinary tract infection) Status: Acute DS: Medications - Discharge Medications Prescriptions: ciprofloxacin HCl 500 mg PO BID 7 Days #14 tab hydrocodone-acetaminophen 1 tab PO Q4H PRN #18 tab PRN Reason: Pain metoprolol tartrate 50 mg PO BID #60 tab DS: Summary Hospital Course: Assessment and Plan - Assessment (1) UTI (urinary tract infection) Code(s): N39.0 - Urinary tract infection, site not specified Status: Acute Plan: E. 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 Patient originally presented to [facility] 07/22/2018 with confusion/altered mental status dx with urinary tract infection which urine culture revealed pansensitive E. coli. While patient was in the hospital he became confused and pulled out his Chiang catheter with gross hematuria. CT abdomen/pelvis revealed large clot in bladder and the right iliopsoas hematoma. Dr. Laughlin was following and patient underwent cystoscopy with removal of bilateral ureteral stents 07/26. Patient's status improved and he was DC'd to SNF on 07/29/18 for strengthening. Patient was sent to the ER due to fever. The patient notes increasing lower abdominal distention and burning when he urinates via catheter for the last several days. He also notes subjective fevers at the [facility]dc. He does complain of lower moderate abdominal pain that is located over the suprapubic region and radiates to the back. While in the ER patient had a bedside ultrasound was performed with a curvilinear probe which reveals a distended bladder with fluid and sediment on the inferior aspect. The bladder was distended above the umbilicus on ultrasound. Chiang catheter was exchanged then the patient had 1400 cc of dark yellow urine output of the new chiang. - Pt became hypotensive with SBP 73/42 and sepsis - Pt was transferred to the ICU & followed by Critical Care Medicine for 2 days - Pt's blood pressure improved with IV hydration - blood cultures (08/11) --> E. Coli - Urine Cx (08/11) --> E. Coli - Rocephin 08/11 - Zosyn (08/11 - 08/13) - Vancomycin (08/11 - 08/13) - Cefepime (08/13 - present) -ID following and managing abx - LFTs with mild elevation 08/11- Abdominal US (08/11) --> no acute abnormalities felt related to sepsis. improving. - Code status discussed at length per Dr Alexis with pt//son (08/13) - Pt is a DNR and Hospice consult is pending as they will likely follow the pt at rehab and if he fails at rehab then pt likely to proceed with comfort care measures. - PT recommending rehab -dc to snf today. cont cipro for one more week. attempt chiang removal on Tuesday. UTI - see above CRYSTAL - Due to sepsis/retention - Renal function has improved. Recent Iliopsoas hematoma - Patient he had a fall prior to previous hospitalization 07/22/18 and landed on the corner of a trunk, healing ecchymosis R flank area - Abdomen/Pelvis CT (07/24/18) --> 1. Bladder filled with clot partially decompressed by Chiang. Etiology for hematuria is not identified in this anticoagulated patient. 2. Smaller moderate right iliopsoas hematoma - Coumadin on hold HTN - His home doses of metoprolol 100 mg PO daily and enalapril 20 mg PO BID have been on hold. - BP has been normal - Hytrin Hypothyroidism - Continue home Synthroid BPH - Hytrin - Time Spent with Patient Total time spent providing and/or coordinating discharge services: Greater than 30 minutes - Quality: VTE Deep Vein Thrombosis/Pulmonary Embolism Present on Admission: No Exam Vital signs: Vital Signs 08/17/18 11:57 08/17/18 12:00 08/17/18 16:00 Temperature 97.9 F 97.9 F Pulse Rate 96 H 89 95 H Respiratory Rate 22 22 Blood Pressure 119/65 119/65 Pulse Oximetry 94 L 94 L 08/17/18 19:50 08/17/18 20:00 08/18/18 00:00 Temperature 98.1 F 98.3 F Pulse Rate 95 H 90 88 Respiratory Rate 18 18 Blood Pressure 110/59 L 118/59 L Pulse Oximetry 93 L 93 L 08/18/18 04:00 08/18/18 08:00 Temperature 98 F 98.6 F Pulse Rate 81 96 H Respiratory Rate 18 17 Blood Pressure 144/69 H 132/70 Pulse Oximetry 98 94 L Intake & Output 08/17/18 08/18/18 08/18/18 18:59 06:59 18:59 Intake Total 1060 / 1060 320 / 320 Output Total 400 / 400 Balance 1060 / 1060 -80 / -80 Weight 82.3 kg Intake: IV 100 / 100 200 / 200 Maxipime Inj 1,000 MG In NS Inj 100 / 100 200 / 200 100 ML @ 200 mls/hr IV.SIG Q8H MINESH Rx#:[id number] Oral 960 / 960 120 / 120 Output: Urine 400 / 400 Other: # Voids 4 Date of Last Bowel Movement 08/16/18 08/18/18 # Bowel Movements 2 heart reg lung cta abd s/nt ext no edema Results Procedures completed during hospitalization: none - Impressions ITS Impressions Chest X-Ray 08/11/18 16:31 CONCLUSION: Underinflated examination with atelectasis at the lung bases. No acute cardiopulmonary abnormality is identified. Abdomen Ultrasound 08/12/18 00:00 CONCLUSION: 1. Gallbladder sludge. There are no findings to indicate acute gallbladder inflammation or obstruction. 2. Bilateral benign-appearing simple renal cysts are identified. Discharge Plan - Discharge Disposition Patient Disposition: Discharge to SNF - Discharge Condition Condition: Stable - Discharge Order Discharge Orders: Discharge Order (Routine); Ordered 08/18/18 Ordered By: Qasim Lew - Discharge Details Anticipated Discharge Date: 08/18/18 - Physicians Team Primary Care Provider: Oliver Everett Attending Provider: Omi Alexis Other Providers: Gabriele Soliman MD ; Yvette Day MD ; [facility] [place], Agency ; [facility] ; Stephanie Bergman MD
[2018-08-18] MEDS ORDERED: Metoprolol Tartrate 50 MG Tablet PO SCH (10:00)
[2018-08-18] MEDS: Senna/Docusate Sodium 8.6/50 MG Tablet PO SCH (10:12)
[2018-08-18] MEDS: Pantoprazole Sodium 20 MG DR Tablet PO SCH (10:13)
[2018-08-18 12:10] VITALS: BP 104/58; PULSE 83; TEMP 98.1; O2SAT 96
== END 2018-08-18 17:48 ==
LOC: NEPE 16:03 → NEDA 16:57 → N07 18:11 → HIMC 21:00 → N04 08-14 15:03
PROVIDERS: ADMIT Hospitalist; ATTEND Hospitalist
DX: K21.9 Gastro-esophageal reflux disease without esophagitis; R54 Age-related physical debility; N39.0 Urinary tract infection, site not specified; S30.1XXD Contusion of abdominal wall, subsequent encounter; Z86.718 Personal history of other venous thrombosis and embolism; R10.30 Lower abdominal pain, unspecified; N32.89 Other specified disorders of bladder; A41.51 Sepsis due to Escherichia coli [E. coli]; E03.9 Hypothyroidism, unspecified; D64.9 Anemia, unspecified; I10 Essential (primary) hypertension; W19.XXXD Unspecified fall, subsequent encounter; Z87.891 Personal history of nicotine dependence; I95.9 Hypotension, unspecified; M79.89 Other specified soft tissue disorders; I45.10 Unspecified right bundle-branch block; M54.9 Dorsalgia, unspecified; R33.9 Retention of urine, unspecified; N13.8 Other obstructive and reflux uropathy; R74.0 Nonspecific elevation of levels of transaminase and lactic acid dehydrogenase [LDH]; Z66 Do not resuscitate; T83.511A Infection and inflammatory reaction due to indwelling urethral catheter, initial encounter; Z79.01 Long term (current) use of anticoagulants; N40.1 Benign prostatic hyperplasia with lower urinary tract symptoms; J98.11 Atelectasis; Z68.25 Body mass index [BMI] 25.0-25.9, adult; S70.11XD Contusion of right thigh, subsequent encounter; E46 Unspecified protein-calorie malnutrition; Z16.24 Resistance to multiple antibiotics; R65.20 Severe sepsis without septic shock; G62.9 Polyneuropathy, unspecified; M81.0 Age-related osteoporosis without current pathological fracture; N17.9 Acute kidney failure, unspecified